=== PATIENT | male | born 1940 | race Caucasian/White ===

== ENCOUNTER 2017-05-26 07:18 | Day surgery (SDC) | payer MEDICARE, BC ==
[2017-05-25 11:19] VITALS: BMI 35.5
[~2017-05-26 07:18] MED LIST: FLU VACC TS2017-18 (>65YR) 0.5 ML SYRINGE IM ONE
--- NOTE | 2017-05-26 10:17 | SPC ---
LEFT UPPER EXTREMITY ARTERIAL VENOUS DIALYSIS FISTULOGRAM AND VENOGRAM TO THE SVC: Date: 05-26-17 History: Patient with long standing hypertension and endstage renal disease with an arterial venous d ialysis fistula placed in the left upper extremity approximately three months ago. However, the fistu la is non-maturing, and further evaluation was recommended. Fluoroscopy: Total fluoroscopy time is 1.5 [place] [address] mGy*cm^2. Technique: After informed consent was obtained, patient was placed on the angiography table in supine position. The left upper extremity was prepped and draped in the usual sterile fashion. An appropriate access s ite was determined with ultrasound guidance. The lateral aspect of the arm near the antecubital fossa was accessed, directed in the venous direction after the skin subcutaneous tissues were infiltrated with buffered 1% Lidocaine for local anesthesia. A venogram was obtained to the SVC demonstrating multiple collateral vessels. The access vein was tho ught to represent the cephalic vein. However, this vein terminated into multiple smaller veins. Fluor o was patent to the SVC. Manual compression was applied to this venous outflow and the contrast reflu xed into a basilic vein with wildly patent venous outflow via the basilic vein to the SVC. A blood pressure cuff was then applied to the upper arm and contrast was injected to reflux the arter ial venous anastomosis. The introducer sheath was removed and hemostatis was achieved with direct pressure. A dry sterile antonio ssing was placed. Patient was transported to radiology nurses holding area for further monitoring abudllahi or to discharge. FINDINGS: Patient has a left upper extremity arterial venous dialysis fistula. History indicated that the fistu la was via the posterior antecubital vein to the radial artery with primary outflow via the cephalic vein. However, with a small perforating branch to the basilic vein remaining. Today's arterial venous dialysis fistulogram demonstrates that the cephalic vein terminates into multiple collateral veins a nd primary outflow is via the basilic vein with moderately patent basilic vein as well as central vei ns to the SVC. Arterial venous anastomosis is also widely patent. IMPRESSION: Patent left upper extremity arterial venous dialysis fistula with patent arterial venous anastomosis. Outflow is primarily via the basilic vein which is widely patent. Additional outflow is via what is thought to be the cephalic vein, but this vein terminates in multiple smaller vessels at the level of the mid arm which are otherwise patent. POS: [facility]
[2017-05-26 12:22] VITALS: BP 97/68; TEMP 98.3
[2017-05-26] MEDS ORDERED: Iopamidol 300 61% 50 ML VIAL FS ONE (13:21)
[2017-05-26] MEDS ORDERED: Heparin 1,000 UNITS/ML VIAL ONE (16:03)
== END 2017-05-26 09:30 | disposition home or self-care (01) ==
LOC: SPEC 07:18
PROVIDERS: ATTEND Specialist
PROC: B50W1ZZ Plain Radiography of Dialysis Shunt/Fistula using Low Osmolar Contrast (ICD-10-PCS; principal; 2017-05-26)
DX: N18.6 End stage renal disease (principal); Z88.8 Allergy status to other drugs, medicaments and biological substances
CPT/HCPCS: 36901; 76942; J1644

== ENCOUNTER 2017-06-18 07:41 | Day surgery (SDC) | payer MEDICARE, BC ==
[2017-06-14 14:52] VITALS: BMI 31.6
--- NOTE | 2017-06-14 22:45 | HP ---
HISTORY OF PRESENT ILLNESS: Valdo Victor is a 77-year-old male patient, followed by fabián Lester on Wednesday, , and Wednesday at [facility] on [facility]. The patient recently underw ent a fistulogram on 05/26/2017. He had a fistula in the left forearm, proximal radial artery inflow , outflow primary cephalic vein, basilic vein. This did not seem to mature in his upper arm al gael the cephalic vein and fistulogram was obtained at [facility] on 05/26/2017 with noting a fistula, cephalic vein outflow to be occluded mid upper arm and primary outflow collaterals to the b asilic vein and basilic vein on occlusion of the cephalic vein, basilic vein filled and drained. Kate n is for basilic vein transposition fistula. The patient has some numbness of his thumb and index fi nger that is slowly improving. He is reluctant to have anything done, but his has talked him in to it. I have explained to him why he should not continue the dialysis catheter wherever and the ris k of a dialysis catheter infection, sepsis, bacteremia, endocarditis, etc. MEDICATIONS: None currently. PAST MEDICAL HISTORY: End-stage renal disease, on maintenance dialysis; hypertension; and anemia. PAST SURGICAL HISTORY: AV fistula placement. TOBACCO: Cessation. SOCIAL HISTORY: Patient is retired. ALLERGIES: None. REVIEW OF SYSTEMS: Noncontributory. PHYSICAL EXAMINATION: VITAL SIGNS: Weight 248 pounds, height 6 foot, 33 BMI, blood pressure 147/54, heart rate 76, tempera ture 98.4 degrees. HEENT: Unremarkable. LUNGS: Clear to auscultation. CARDIAC: Regular rate and rhythm without murmur or gallop. ABDOMEN: Soft, nontender, no masses. EXTREMITIES: Unremarkable. Left upper arm reveals a fistula, inflow proximal radial, outflow basili c vein, good thrill, and bruit. Dissipates over the upper arm, cephalic vein and primary outflow wit h the basilic vein. ASSESSMENT AND PLAN: Dysfunctional fistula left upper arm. We will plan basilic vein transposition fistula joining to the stump of the cephalic vein and distal third of the upper arm. He understands the risks and benefits and consents. Paresthesias in his hand improving.
[2017-06-18] MEDS ORDERED: Heparin 10,000 UNITS/ 10 ML VIAL ONE ×3 (08:54→14:36)
[2017-06-18] MEDS ORDERED: Dexamethasone 20 MG/5 ML VIAL ONE (08:54)
[2017-06-18] MEDS ORDERED: PROPOFOL 200 MG/20 ML VIAL ONE (08:54)
[2017-06-18] MEDS ORDERED: Ondansetron HCl/PF 4 MG/2 ML Vial ONE (08:54)
[2017-06-18] MEDS ORDERED: ePHEDrine/0.9% NaCl/PF SYRINGE 50 mg/10 ml ONE (08:54)
[2017-06-18] MEDS ORDERED: Lidocaine 1% PF 5 ML VIAL ONE (08:54)
[2017-06-18] MEDS ORDERED: CEFAZOLIN/Water 2 GM/20 ML SYRINGE ONE (09:16)
[2017-06-18 09:29] LABS: #Basophils 0.1 thou/uL (0.0-0.2); #Eosinphils 0.2 thou/uL (0.0-0.7); #Lymphocytes 2.9 thou/uL (1.20-3.40); #Monocytes 0.7 thou/uL (0.11-0.59); #Neutrophils 4.6 thou/uL (1.40-6.50); %Eosinophils 2.2 % (0.0-10.0); %Lymphocytes 34.4 % (21.0-51.0); %Neutrophils 54.4 % (42.0-75.0); Hemoglobin 14.2 g/dL (14.0-18.0); Mean Corpuscular HGB CONC 31.9 g/dL (32.0-36.0); Mean Corpuscular Hemoglobin 32.6 pg (27.0-31.0); Mean Platelet Volume 5.7 fL (7.4-10.4); Platelet Count 381 thou/uL (130-400); RBC Distribution Width 17.3 % (11.5-14.5); Red Blood Cell (RBC) Count 4.36 mill/uL (4.70-6.10); White Blood Cell (WBC) Count 8.5 thou/uL (4.8-10.8)
[2017-06-18 09:49] LABS: Anion Gap 17 mmol/L (10-20); BUN (Urea Nitrogen) 58 mg/dL (8.4-25.7); Calc. Creatinine Clearance 13 mL/min (70-130); Calcium 8.6 mg/dL (7.8-10.44); Carbon Dioxide 30 mmol/L (23-31); Chloride 95 mmol/L (98-107); Estimated GFR-MDRD 7; Glucose 113 mg/dL (83-110); Potassium 5.1 mmol/L (3.5-5.1); Sodium 137 mmol/L (136-145)
[2017-06-18] MEDS ORDERED: Fentanyl 250 MCG/5 ML VIAL ONE (11:24)
[2017-06-18] MEDS ORDERED: Heparin 5,000 UNITS/ML VIAL ONE (11:26)
[2017-06-18] MEDS ORDERED: Bupivacaine HCl 0.5%/Epinephrine 1:200,000/PF 30 ml Vial ONE (11:26)
[2017-06-18] MEDS ORDERED: Protamine Sulfate 50 MG/5 ML VIAL ONE (11:26)
[2017-06-18] MEDS ORDERED: Phenylephrine HCL 10 MG/ML VIAL ONE (12:25)
[2017-06-18] MEDS ORDERED: traMADol HCl 50 MG TAB ONE (14:45)
--- NOTE | 2017-06-18 18:16 | OP ---
DATE OF SERVICE: 06/18/2017 PREOPERATIVE DIAGNOSES: End-stage renal disease, nonmaturing left arm fistula, (cephalic vein stump occludes in the distal upper arm junction, mid distal third with primary outflow basilic vein). POSTOPERATIVE DIAGNOSES: End-stage renal disease, nonmaturing left arm fistula, (cephalic vein stump occludes in the distal upper arm junction, mid distal third with primary outflow basilic vein). PROCEDURE PERFORMED: Basilic vein transposition fistula, left arm. SURGEON: Dr. Javon Parker. ANESTHESIA: General LMA. Local 0.25% Marcaine with epinephrine, 60 mL, mixed with 1% Xylocaine with epinephrine, 20 mL, total volume used. PROCEDURE IN DETAIL: The patient was taken to the operating room where under general LMA anesthesia, left upper extremity was clipped of hair, prepared with ChloraPrep, draped in routine fashion. Inci dotty made from the proximal volar forearm overlying the arterial inflow up into the left axilla, diaz ied down through the skin and subcutaneous tissue and deep fascia, keeping the adjacent nerves free o f harm, basilic vein dissected free, dividing branch between 4-0 silk ties and clips, mobilizing it. A counter incision was made over the cephalic vein stump above the antecubital fossa and it was diss ected free and outflow branch points (the occlusion) divided between 4-0 silk ties and clips, mobiliz ed out of the tunnel into the antecubital fossa. The patient was given 6000 units heparin intravenou sly after Mar[place]-Chata tunneler 12 mm head used to create a tunnel between the antecubital fossa and ax illa over the anterior upper arm. The head was changed to a 6 and the basilic vein fistula takeoff f rom the arterial inflow, was clamped with vascular clamps, stump ligated with to and fro sutures of l ocking 4-0 Prolene. Vein had been marked to prevent torsion. It was flushed with heparin saline will ution and flushed well. It was then connected to the tunneler, brought through the tunnel, flushed a gain and flushed well. End basilic vein to end cephalic vein anastomosis and the counter incision an astomosis were created with continuous suture of 6-0 Prolene after spatulating both ends appropriatel y. After completion of the anastomosis, Surgicel was applied. The patient given 50 mg of protamine intravenously. Flovilla bed, medial left upper arm was inspected. Good hemostasis obtained with the cautery and clips. Surgicel was applied. Subcutaneous tissues approximated with 3-0 Monocryl, skin with deshawn and sterile dressings applied. The patient tolerated the procedure well.
== END 2017-06-18 15:00 | disposition home or self-care (01) ==
LOC: SDC 07:41
PROVIDERS: ATTEND Specialist
PROC: 05SC0ZZ Reposition Left Basilic Vein, Open Approach (ICD-10-PCS; principal; 2017-06-18)
DX: T82.898A Other specified complication of vascular prosthetic devices, implants and grafts, initial encounter (principal); N18.6 End stage renal disease; Z88.8 Allergy status to other drugs, medicaments and biological substances; Z99.2 Dependence on renal dialysis
CPT/HCPCS: 36415; 80048; 85025; J0670; J1100; J1644; J2001; J2370; J2405; J2704; J2720; J3010

== ENCOUNTER 2018-02-19 03:14 | Emergency (ER) | payer MEDICARE, BC ==
[2018-02-19] MEDS ORDERED: traMADol HCl 50 MG TAB ONE (04:08)
--- NOTE | 2018-02-19 12:05 | RAD ---
LEFT SHOULDER 3 VIEWS: HISTORY: Fell with shoulder pain. FINDINGS: There are some arthritic changes of the AC joint. The humeral head is high-riding. This suggests th e presence of an underlying rotator cuff injury which is probably chronic. No fracture or dislocatio n. IMPRESSION: Findings that would suggest a rotator cuff injury, probably chronic. POS: [facility]
== END 2018-02-19 04:19 | disposition home or self-care (01) ==
LOC: ERS 03:14
DX: M25.512 Pain in left shoulder (principal); Z79.899 Other long term (current) drug therapy; W01.0XXA Fall on same level from slipping, tripping and stumbling without subsequent striking against object, initial encounter; Y93.01 Activity, walking, marching and hiking

== ENCOUNTER 2018-04-17 16:56 | Inpatient (IN) | payer MEDICARE, BC ==
[~2018-04-17 16:56] MED LIST changes: -FLU VACC TS2017-18 (>65YR) 0.5 ML SYRINGE IM ONE; +Iopamidol 370 76% 100 ML VIAL ONE
[2018-04-17] MEDS ORDERED: Ondansetron PF 4 MG/2 ML Vial ONE (17:34)
[2018-04-17 17:36] LABS: #Lymphocytes 1.2 thou/uL (1.20-3.40); #Monocytes 0.3 thou/uL (0.11-0.59); #Neutrophils 5.5 thou/uL (1.40-6.50); %Basophils 0.2 % (0.0-1.0); %Eosinophils 0.2 % (0.0-10.0); %Lymphocytes 16.6 % (21.0-51.0); %Monocytes 3.7 % (0.0-10.0); %Neutrophils 79.3 % (42.0-75.0); Hemoglobin 13.2 g/dL (14.0-18.0); Mean Corpuscular HGB CONC 33.7 g/dL (32.0-36.0); Mean Corpuscular Hemoglobin 35.7 pg (27.0-31.0); Mean Platelet Volume 6.6 fL (7.4-10.4); Platelet Count 306 thou/uL (130-400); RBC Distribution Width 12.5 % (11.5-14.5)
[2018-04-17] MEDS ORDERED: Vancomycin HCl 1.5 GM in Sodium Chloride 0.9% 250 ML 300 ML IVPB ONE (17:45)
[2018-04-17] MEDS ORDERED: Cefepime 2 GM in Sodium Chloride 0.9% 100 ML IVPB ONE (17:45)
[2018-04-17 17:50] LABS: MDiff Complete? YES; Macrocytosis SLIGHT = 6-15 cells (100X) (0-5/hpf); Platelet Morphology Comment Appears Adequate; Polychromasia SLIGHT = 2-3 cells (100X) (0-2/hpf)
[2018-04-17 17:54] LABS: PTT 25.9 SEC (22.9-36.1); Prothrombin Time 13.4 SEC (12.0-14.7)
[2018-04-17 17:55] LABS: ALT (SGPT) 25 U/L (8-55); AST (SGOT) 30 U/L (5-34); Albumin 4.2 g/dL (3.4-4.8); Alcohol Less than 10 mg/dL (Less than 10); Alkaline Phosphatase 70 U/L (40-150); Anion Gap 24 mmol/L (10-20); BUN (Urea Nitrogen) 43 mg/dL (8.4-25.7); Bilirubin, Total 0.7 mg/dL (0.2-1.2); Calc. Creatinine Clearance 0 mL/min (70-130); Calcium 11.2 mg/dL (7.8-10.44); Carbon Dioxide 34 mmol/L (23-31); Chloride 87 mmol/L (98-107); Estimated GFR-MDRD 9; Globulin 3.4 g/dL (2.4-3.5); Glucose 143 mg/dL (83-110); Magnesium 4.5 mg/dL (1.6-2.6); Protein, Total 7.6 g/dL (5.8-8.1); Sodium 140 mmol/L (136-145)
--- NOTE | 2018-04-17 18:05 | RAD ---
ONE VIEW CHEST: History: Dyspnea. Comparison: 02-17-17 FINDINGS: Normal cardiac silhouette. Lung volumes are diminished with resultant accentuation of the pulmonary v essels and interstitium. Superimposed infiltrate cannot be excluded. No pneumothorax or osseous abnor mality. IMPRESSION: Diminished lung volumes with lung parenchymal changes as described above. Superimposed infiltrate can not be excluded. Further evaluation with a repeat two view chest radiograph with better inspiration i s recommended. POS: [facility]
[2018-04-17 18:28] LABS: CKMB 9.4 ng/mL (0-6.6)
[2018-04-17 18:45] LABS: Acetaminophen Less than 6.0 mcg/mL (10.0-30.0); Alcohol Less than 10 mg/dL (Less than 10); CK (CPK) 163 U/L (30-200); Lipase 18 U/L (8-78); Salicylate Less than 8.0 mg/dL (15.0-30.0)
[2018-04-17 18:50] LABS: Bilirubin Negative (Negative); Blood, Urine Large (Negative); Clarity CLOUDY (Clear); Glucose, Urine (Dipstick) 100 mg/dL (Negative); Leukocyte Small (Negative); Nitrite Negative (Negative); Protein, Urine (Dipstick) 100 mg/dL (Neg-Trace); Urobilinogen 0.2 mg/dL (0.2-1.0); pH, Urine 8.5 (5.0-9.0)
[2018-04-17 18:52] LABS: Bacteria/HPF None Seen HPF (None Seen); RBC/HPF GREATER THAN 50-TNTC HPF (0-3)
[2018-04-17 19:01] LABS: Amphetamine Not Detected (NotDetected); Barbiturates Screen Not Detected (NotDetected); Benzodiazepine Screen Not Detected (NotDetected); Cocaine Metabolite Screen Not Detected (NotDetected); Medtox Control Line Valid? VALID (VALID); Medtox Reader # READER 1; Methadone Not Detected (NotDetected); Methamphetamine Not Detected (NotDetected); Opiate Screen Not Detected (NotDetected); Oxycodone Screen Not Detected (NotDetected); Phencyclidine (PCP) Not Detected (NotDetected); THC/Cannabinoid Screen Not Detected (NotDetected); Tricyclic Screen Not Detected (NotDetected)
--- NOTE | 2018-04-17 19:09 | CT ---
NONCONTRAST HEAD CT: History: Altered mental status. Comparison: None. FINDINGS: No parenchymal hemorrhage. No extraaxial hematoma. No midline shift. Basilar cisterns are patent. Age appropriate atrophy. Cortical rivera white matter differentiation is preserved. Hypodensities in the left navarrete radiata and white matter adjacent to the frontal horn and left later al ventricles are presumed to be due to a combination of the chronic small vessel ischemic change or remote lacunar infarcts of the white matter. No evidence of hydrocephalus. Minimal mucosal disease of the right maxillary sinus. Calvarium is intact. IMPRESSION: Hypodensities involving the left cerebrum as described above. Findings are presumed to be chronic. Fu rther evaluation with brain MRI if clinically warranted. POS: [facility]
[2018-04-17 19:18] LABS: Hyaline Casts/LPF 0-3 HYALINE CAST LPF (0-3 Hyaline); Other Casts/LPF None Seen LPF (0-3 Hyaline)
[2018-04-17 19:19] LABS: Squamous Epithelial 0-3 HPF (0-3)
[2018-04-17] MEDS ORDERED: Midazolam HCl 2 mg/2 ml Vial ONE (19:29)
--- NOTE | 2018-04-17 20:13 | CT ---
ABDOMEN CT WITH CONTRAST PELVIC CT WITH CONTRAST: Comparison: 02-16-17 FINDINGS: ABDOMEN CT: There is significant ground glass opacification involving the lingula. Additional patchy ground glass interstitial opacities are noted in the visualized lower lobe and middle lobe. There is a more focal infiltrate in the lingula, incompletely evaluated, measuring 1.6 cm. Heart size is normal. No pericardial effusion. The descending thoracic aorta and abdominal aorta do n ot have any aneurysmal dilatation. Gallbladder is unremarkable. Mild dilatation of the intrahepatic b iliary system. 5 mm hypodensity in the right hepatic lobe, too small to characterize. 5.2 x 4.1 cm hy podensity in the liver with an attenuation coefficient of -8 Hounsfield units, compatible with a cyst . Spleen, pancreas, and adrenal glands are unremarkable. No gastrohepatic, retrocrural or periportal lymphadenopathy. Bilateral atrophic kidneys with indeterminate hypodense lesions. Bilaterally, no obstructive uropathy . No mesenteric mass, lymphadenopathy, free air or free fluid. Limited evaluation of the alimentary canal by the lack of oral contrast. Multiple distended fluid alexei led loops proximal mid small bowel. The distal small bowel loops and terminal ileum appear to be deco mpressed. Normal caliber appendix. Fecal material in a nondistended, nondilated colon. Diverticulosis , without definite diverticulitis. Mucosal prominence and wall thickening of the sigmoid colon and re ctum is presumed to be due to under distension. PELVIC CT: No mass, lymphadenopathy, free air, or free fluid. IMPRESSION: 1. Early/partial small bowel obstruction. 2. Diverticulosis, without evidence of diverticulitis. 3. Mucosal thickening involving the distal sigmoid colon and rectum. Findings may be due to distentio n. Colonoscopy is recommended. POS: [facility]
[2018-04-17] MEDS ORDERED: Norepinephrine 8 MG/0.9% NS 250 ML ONE (20:18)
--- NOTE | 2018-04-17 20:52 | CON ---
DATE OF CONSULTATION: TYPE OF CONSULTATION: Nephrology. REASON FOR CONSULTATION: Maintenance hemodialysis. HISTORY OF PRESENT ILLNESS: This is a very pleasant 77-year-old gentleman, presented to the hospital with a 1-day history of abdominal pain with nausea and vomiting. The patient dialyzes per schedule Wednesday, Wednesday, and Wednesday. The patient denies no headache, numbness, tingling, or weakness. Denies any nausea, vomiting, or chest pain. PAST MEDICAL HISTORY: Significant for end-stage renal disease, hypertension, hyperlipidemia, history of tunneled dialysis catheter, AV fistula surgery, for ESRD. ALLERGIES: REVIEWED. REVIEW OF SYSTEMS: A 15-point review of systems was performed, negative except what is noted above. GENERAL: HEAD: NECK: No swelling or lumps. NOSE: No epistaxis or discharge. EYES: No diplopia or pain. RESPIRATORY: CARDIOVASCULAR: GASTROINTESTINAL: /MASS SPECTROMETRY MANAGER: MUSCULOSKELETAL: No joint pain. NEUROPSYCHIATIC SYSTEMS: No suicidal ideation. No ideation. SKIN: Denies any rash or ulcer. CONSTITUTIONAL: No fever or chills. PHYSICAL EXAMINATION: GENERAL: The patient is awake and alert. VITAL SIGNS: Reviewed. GENERAL APPEARANCE AND MENTAL STATUS: Fair. HEAD/NECK: Normocephalic. Atraumatic. EYES: EOMI. No deformity. EARS: Clear. No ulcers. NOSE: Intact. No lesions. MOUTH: Clear. No discharge. THROAT: Clear. No exudate. LUNGS: Clear. No crackles. CARDIAC: S1, S2. No rub. ABDOMEN: Benign. Bowel sounds positive. GENITALIA/RECTUM: Brambila absent. BACK/EXTREMITIES: Edema 0+. NEUROLOGICAL: Alert and motor intact. SKIN: LYMPHATICS: LABORATORY DATA: Labs show hemoglobin 13.2. Bicarb 34, creatinine 5, 1. stage 6 chronic kidney disease, plan dialysis tomorrow. 2. Elevated lactic acid, management per primary team. 3. Hypercalcemia, hold off on vitamin D. 4. Anemia, stable. 5. Medications based on GFR. 6. Abdominal pain, management per primary team. Job ID: [id number] MTDD
[2018-04-17 21:18] LABS: Troponin I 0.091 ng/mL (< 0.028)
[2018-04-17 21:26] LABS: Lactic Acid 1.1 mmol/L (0.5-2.2)
--- NOTE | 2018-04-17 21:54 | RAD ---
LIMITED ONE VIEW ABDOMEN: History: Evaluate NG tube placement. FINDINGS: Limited view of the lower thorax and upper abdomen demonstrates an NG tube which appears to be in the left upper quadrant, likely in the stomach. IMPRESSION: As above. POS: [facility]
[2018-04-17] MEDS ORDERED: Ondansetron ODT 4 MG TAB PO PRN (22:23)
[2018-04-17] MEDS ORDERED: Acetaminophen 650 MG Suppository PR PRN (22:23)
[2018-04-17] MEDS ORDERED: CCU Electrolyte Replacement 1 EACH FS SCH (22:23)
[2018-04-17] MEDS ORDERED: Ondansetron PF 4 MG/2 ML Vial IVP PRN (22:23)
[2018-04-17] MEDS ORDERED: Zolpidem Tartrate 5 MG TAB PO PRN (22:23)
[2018-04-17] MEDS ORDERED: Magnesium Oxide 400 MG TAB PO PRN ×2 (22:39)
[2018-04-17] MEDS ORDERED: Magnesium 2 GM/NS 0.9% 100 ML 2 GM in Premix Bag 1 BAG IVPB PRN (22:39)
[2018-04-17] MEDS ORDERED: Potassium Chloride 40 MEQ in Sodium Chloride 0.9% 250 ML 250 ML IVPB PRN (22:39)
[2018-04-17] MEDS ORDERED: Potassium Phosphate 12 MMOL in Sodium Chloride 0.9% 250 ML 250 ML IV PRN (22:39)
[2018-04-17] MEDS ORDERED: Potassium Phosphate 9 MMOL in Sodium Chloride 0.9% 100 ML IVPB PRN (22:39)
[2018-04-17] MEDS ORDERED: Potassium Chloride 20 MEQ TAB PO PRN (22:39)
[2018-04-17] MEDS ORDERED: CCU ELECTROLYTE REPLACEMENT PROTOCOL FS PRN (22:39)
[2018-04-17] MEDS ORDERED: Potassium Phosphate 15 MMOL in Sodium Chloride 0.9% 250 ML 250 ML IV PRN (22:39)
[2018-04-17] MEDS ORDERED: Potassium Chloride 40 MEQ in Premix Bag 1 BAG IVPB PRN (22:39)
[2018-04-17] MEDS ORDERED: Lorazepam 2 MG/ML VIAL ONE (22:43)
[2018-04-17 23:56] LABS: Troponin I 0.135 ng/mL (< 0.028)
[2018-04-18] MEDS ORDERED: Lorazepam 2 MG/ML VIAL ONE (00:47)
[2018-04-18] MEDS ORDERED: Haloperidol Lactate 5 MG/ML VIAL SLOW IVP SCH (01:00)
[2018-04-18] MEDS ORDERED: Norepinephrine 8 MG/250 ML BAG IVPB PRN (01:42)
[2018-04-18 04:56] LABS: #Lymphocytes 1.2 thou/uL (1.20-3.40); #Monocytes 0.9 thou/uL (0.11-0.59); #Neutrophils 6.6 thou/uL (1.40-6.50); %Basophils 0.3 % (0.0-1.0); %Eosinophils 0.2 % (0.0-10.0); %Lymphocytes 13.4 % (21.0-51.0); %Monocytes 10.3 % (0.0-10.0); %Neutrophils 75.8 % (42.0-75.0); Hemoglobin 10.2 g/dL (14.0-18.0); Mean Corpuscular HGB CONC 33.4 g/dL (32.0-36.0); Mean Corpuscular Hemoglobin 35.6 pg (27.0-31.0); Mean Platelet Volume 6.8 fL (7.4-10.4); Platelet Count 250 thou/uL (130-400); RBC Distribution Width 12.5 % (11.5-14.5); Red Blood Cell (RBC) Count 2.86 mill/uL (4.70-6.10); White Blood Cell (WBC) Count 8.7 thou/uL (4.8-10.8)
[2018-04-18] MEDS: Lorazepam 2 MG/ML VIAL SLOW IVP PRN ×2 (05:14→08:55)
[2018-04-18 05:32] LABS: Anion Gap 16 mmol/L (10-20); BUN (Urea Nitrogen) 54 mg/dL (8.4-25.7); Calc. Creatinine Clearance 14 mL/min (70-130); Calcium 9.1 mg/dL (7.8-10.44); Carbon Dioxide 36 mmol/L (23-31); Chloride 92 mmol/L (98-107); Estimated GFR-MDRD 9; Glucose 113 mg/dL (83-110); Sodium 139 mmol/L (136-145)
--- NOTE | 2018-04-18 06:39 | HP ---
CHIEF COMPLAINT: Alteration of awareness. HISTORY OF PRESENT ILLNESS: This is a 77-year-old male with past medical history of end-stage renal failure, on hemodialysis on Mondays, Wednesdays, and Fridays, presenting with a chief complaint of alteration of awareness. The patient was brought in by the spouse. Per the spouse, the patient is increasingly being altered in the past 24 hours on the day of admission. The patient was complaining of lower abdominal pain and back pain prior to his worsening of his mentation. The patient also endorses some shortness of breath during that time, and the patient was recently seen in the hospital and diagnosed with zoster and the patient was started on Valtrex 2 days prior to the day of admission. The patient is on dialysis; Mondays, Wednesdays, and Fridays. The patient recently was dialyzed the day prior to this admission. At this point, the patient is confused and agitated. REVIEW OF SYSTEMS: Unable to be obtained since the patient is altered and confused at this time. PAST MEDICAL HISTORY: End-stage renal disease, on hemodialysis. FAMILY HISTORY: Reviewed and noncontributory to this visit. PAST SURGICAL HISTORY: The patient had back surgery in 1981. The patient had laser surgery to bilateral eyes and there is a fistula at the left arm. PSYCHIATRIC HISTORY: No previous psych history. SOCIAL HISTORY: The patient drinks socially once a month. Denies any illicit drugs and denies any smoking history. This history was obtained from previous medical records. ALLERGIES: THE PATIENT IS ALLERGIC TO BENADRYL AND PENICILLINS. CURRENT MEDICATIONS: Unable to be obtained since the patient is altered. PHYSICAL EXAMINATION: VITAL SIGNS: Blood pressure is 89/60, pulse of 130, respiratory rate of 26, temperature of 100.3, and oxygen saturation of 99% on room air. GENERAL: The patient is lying in bed, confused, agitated. The patient is moving his extremities uncontrollably and very anxious. HEENT: Normocephalic, atraumatic. Pupils are equally round and reactive to light. Extraocular movements are intact. No scleral icterus. No conjunctival pallor. Mucous membranes are dry. NECK: Trachea is midline. Full range of motion. Supple, nontender. LUNGS: The patient has bilateral wheezes at the anterior lung mata bilaterally, and there are some crackles at the lower lobes bilaterally. CARDIAC: Positive S1 and S2. The patient is tachycardic, irregularly irregular. ABDOMEN: Obese, soft, nontender. EXTREMITIES: The patient has 5/5 upper extremity strength. Good pulses bilaterally. There is AV fistula at the left biceps with a palpable thrill. Lower extremities; the patient has 5/5 lower extremity strength. No edema noted. Good pulses bilaterally at the lower extremities. NEUROLOGIC: Cranial nerves 2 through 12 grossly intact. No neurologic deficits noted. PSYCH: The patient is confused, alert, oriented to only self. The patient's GCS is 13. SKIN: Warm, dry, and intact. The patient do have zoster at the right chest. DIAGNOSTIC DATA: EKG that was done shows atrial fibrillation with rapid ventricular response, rate of 128. LABORATORY DATA: WBC is 7.0, hemoglobin is 13.2, hematocrit is 39.2, and platelet count is . PT is 13.0, INR 1.0, and PTT 25.9. Sodium is 140, potassium is 5.0, chloride is 87, carbon dioxide of 34, anion gap of 24, BUN is 43, creatinine is 6.17, GFR of 9, glucose is 143, lactic acid of 3.9, magnesium of 4.5, and troponin of 0.046. Urinalysis; the patient has small leukocyte esterase, negative for nitrites. Urine tox is negative. IMAGING DATA: Chest x-ray that was done in the ED showed limited view of the lower thorax and upper abdomen, demonstrates an NG tube which appears to be in the left upper quadrant, likely in the stomach. CT of the abdomen and pelvis shows early partial small-bowel obstruction, diverticulosis without evidence of diverticulitis, mucosal thickening involving the distal sigmoid colon and rectum. Finding may be due to distention. ASSESSMENT AND PLAN: This is a 77-year-old male being admitted for; 1. Septic shock likely due to underlying colitis. At this point, the patient has been started on antibiotics. We are going to continue the patient on antibiotics. We have put in a central line in place, and we will start the patient on Levophed. We are going to admit the patient to the ICU. We are going to continue the patient on current management. We are going to continue the patient on IV fluids. We will give the patient p.r.n. pain medications and p.r.n. medications for fevers. We will follow up on cultures, and we will follow up on morning labs. 2. Partial ileus. At this point, NG tube has been placed. Surgery has been consulted. We will continue the patient on current management. We will continue to give the patient gentle hydration. We will monitor the patient closely. 3. Mucosal thickening of the distal sigmoid and rectum, likely due to colitis. At this point, we have consulted GI. We will follow up with GI regarding any further recommendation. We will continue the patient on antibiotics. The patient has been made n.p.o. 4. End-stage renal disease, on hemodialysis. At this point, we have consulted nut sifter. We will continue with the patient's regimen of dialysis. The patient's next dialysis is today. We will prepare the patient for dialysis if the patient can be able to tolerate it. 5. Acute respiratory failure. The patient was given oxygenation in the ED. Currently, the patient is not on any nasal cannula. We will monitor the patient 's O2 sats. 6. Obesity. We will continue to advise the patient to lose weight. 7. Atrial fibrillation. We will continue the patient on his home medications. 8. Deep venous thrombosis/gastrointestinal prophylaxis. critical care time > 70 mins Job ID: [id number] MTDD
[2018-04-18] MEDS: Famotidine/PF 20 mg/2ml Vial SLOW IVP SCH (08:22)
[2018-04-18] MEDS: Heparin 5,000 UNITS/ML VIAL SC SCH ×2 (08:24→20:54)
[2018-04-18] MEDS ORDERED: Cepastat Lozenges 1 LOZ PO PRN (08:53)
[2018-04-18] MEDS ORDERED: Sodium Chloride 0.65% Nasal 44 ML BOT EA NARE PRN (08:53)
[2018-04-18] MEDS ORDERED: Acetaminophen 500 MG TAB PO PRN (08:53)
[2018-04-18] MEDS ORDERED: Diabetic Tussin 200 MG/10 ML UDCUP PO PRN (08:53)
[2018-04-18] MEDS ORDERED: Artificial Tears 18 DROP/0.9 ML EA EYE PRN (08:53)
[2018-04-18] MEDS ORDERED: hydrALAZINE 20 MG/ML VIAL SLOW IVP PRN (08:53)
[2018-04-18] MEDS ORDERED: Eucerin (Mineral Oil/Petrolatum,White) 30 gm Jar TOP PRN (08:53)
[2018-04-18] MEDS ORDERED: Vancomycin HCl 1.25 GM in Sodium Chloride 0.9% 250 ML 250 ML IVPB SCH (09:00)
[2018-04-18] MEDS ORDERED: HOLD VANCOMYCIN FOR LEVEL >20 FS SCH (09:00)
[2018-04-18] MEDS ORDERED: Vancomycin HCl 1.5 GM in Sodium Chloride 0.9% 250 ML 300 ML IVPB SCH (09:00)
[2018-04-18] MEDS ORDERED: Famotidine 20 MG TAB PO SCH (09:00)
[2018-04-18] MEDS ORDERED: Vancomycin HCl 1 GM in Premix Bag 1 BAG IVPB SCH (09:00)
[2018-04-18] MEDS ORDERED: Vancomycin HCl 750 MG in Sodium Chloride 0.9% 250 ML 250 ML IVPB SCH (09:00)
[2018-04-18 09:30] LABS: Vancomycin, Trough 17.3 ug/mL
[2018-04-18] MEDS: Saccharomyces boulardii 250 MG CAP PO SCH (09:35)
--- NOTE | 2018-04-18 10:19 | PRG ---
DATE OF SERVICE: 04/18/2018 SUBJECTIVE: A 77-year-old gentleman, being seen for end-stage renal disease. The patient is nonverbal. OBJECTIVE: GENERAL: The patient is resting. VITAL SIGNS: Afebrile, pulse 77, breathing 16, blood pressure 123/54. GENERAL APPEARANCE AND MENTAL STATUS: Fair. HEAD/NECK: Normocephalic. Atraumatic. EYES: EOMI. No deformity. EARS: Clear. No ulcers. NOSE: Intact. No lesions. MOUTH: Clear. No discharge. THROAT: Clear. No exudate. LUNGS: Clear. No crackles. CARDIAC: S1, S2. No rub. ABDOMEN: Benign. Bowel sounds positive. GENITALIA/RECTUM: Brambila absent. BACK/EXTREMITIES: Edema 0+. NEUROLOGICAL: Alert and motor intact. SKIN: LYMPHATICS: LABORATORY DATA: Labs show hemoglobin 10.2. Potassium is 5. ASSESSMENT AND PLAN: 1. Stage 6 chronic kidney disease. Plan dialysis. 2. Hypertension, stable. 3. Anemia, stable. 4. Medications based on GFR, appropriate. Job ID: [id number]
--- NOTE | 2018-04-18 10:53 | CON ---
DATE OF CONSULTATION: 04/18/2018 TYPE OF CONSULTATION: Surgical. REASON FOR CONSULTATION: Possible bowel obstruction. HISTORY OF PRESENT ILLNESS: The patient is a 77-year-old white male. He is a dialysis patient and has undergone access surgery per Dr. Parker, most recently in June. He apparently dialyzes using his left upper arm access. The patient was brought into the emergency room yesterday by his because of altered mental status. He was apparently complaining of some degree of abdominal pain prior to his inability to communicate appropriately. The patient was seen in the emergency room, where he underwent evaluation with radiologic and laboratory studies. CT scan of his abdomen and pelvis revealed some diffuse small bowel dilatation. This is felt to potentially be earlier partial small bowel obstruction. On my examination, I cannot see a definite transition zone. Laboratory studies yesterday revealed a normal white blood cell count of 7.0 with a hemoglobin of 13, but a left shift with 80% neutrophils. Today, his white blood cell count is 8.7. His chemistries when he arrived yesterday revealed a potassium that is elevated at 5.0 and chloride that is low at 87. His CO2 is high at 34. His magnesium is high at 4.5, and it does not look like his phosphorus level was checked. He also had an elevated CK-MB and troponin level. A nasogastric tube was placed and he was admitted to the ICU. He is currently being sedated secondary to his fairly wild agitation. He is entirely noncommunicative with me. He has a BiPAP mask on his face. Nasogastric tube is in place and functioning well with a little output and what there is, is nonbilious. PAST MEDICAL HISTORY: Significant for end-stage renal disease and hypertension. PAST SURGICAL HISTORY: AV fistula placement and prior dialysis catheter placement. I can see no evidence of prior abdominal surgery. He also apparently had back surgery in the past. MEDICATIONS: Prior to this admission are unknown. There are no family at bedside. Back in June, he was taking no medications apparently. PERSONAL AND SOCIAL HISTORY: He apparently does not smoke. Drinks alcohol socially. ALLERGIES: APPARENTLY TO BENADRYL. PHYSICAL EXAMINATION: VITAL SIGNS: He is afebrile with temperature 98.4, pulse is 77, and blood pressure 123/54. GENERAL: He is somewhat sedated and then noncommunicative in the intensive care unit with a BiPAP mask in place. He begins thrashing and struggling against his restraints whenever he is manipulated. HEAD, EYES, EARS, NOSE, AND THROAT: Unremarkable. NECK: Supple. LUNGS: Clear to auscultation anteriorly. CARDIAC: Appears to be regular rate and rhythm. ABDOMEN: Soft, not particularly distended. There are no bowel sounds appreciable to my examination. EXTREMITIES: Unremarkable. LABORATORY DATA: Labs are as referenced above. ASSESSMENT AND PLAN: The patient, who complained of some abdominal pain and there is evidence of small bowel dilatation on CT scan. I suspect this is an ileus related to underlying medical issues. Bowel obstruction would be unusual in the absence of prior surgery. For now, I would certainly continue with nasogastric tube. At the point that his medical issues seem to be improving with an assess for bowel patency with a Gastrografin small bowel followthrough. I would typically order this for tomorrow, but I am not certain that he will medically be ready for this procedure. Continue medical management for now. Job ID: [id number]
--- NOTE | 2018-04-18 12:01 | PDOC.PN ---
- Subjective Encounter Start Date: 04/18/18 Encounter Start Time: 09:45 -: old records requested/rev Patient seen and examined. No new complaints. No overnight events - Objective Resuscitation Status - Order Detail: 04/17/18 22:23 Resuscitation Status Routine Resuscitation Status: FULL: Full Resuscitation MAR Reviewed: Yes Vital Signs & Weight: Vital Signs (12 hours) Temp Pulse Pulse Ox 04/18/18 11:36 79 04/18/18 07:55 100 04/18/18 07:00 98.4 F 04/18/18 04:00 98.5 F 04/18/18 01:00 98.7 F 04/18/18 00:46 90 100 04/18/18 00:40 100 Weight Weight 207 lb 3.752 oz Most Recent Monitor Data Heart Rate from ECG 81 NIBP 118/89 NIBP BP-Mean 98 Respiration from ECG 19 SpO2 97 I&O: 04/17/18 04/18/18 04/19/18 06:59 06:59 06:59 Intake Total 43 0 Output Total 15 125 Balance 28 -125 Result Diagrams: 04/18/18 04:53 04/18/18 03:30 Radiology Reviewed by me: Yes (all radiological investigation reviewed) EKG Reviewed by me: Yes (nsr) Phys Exam - Physical Examination Constitutional: NAD on bipap HEENT: PERRLA, moist MMs, sclera anicteric Neck: no JVD, supple Respiratory: no wheezing, no rales, no rhonchi reduced air entry at base Cardiovascular: RRR, no significant murmur, no rub Gastrointestinal: soft, no distention, positive bowel sounds Musculoskeletal: pulses present, edema present unable to assess Lymphatic: no nodes Deviation from normal: unable to assess Skin: normal turgor Dx/Plan (1) Acute respiratory failure with hypoxia Code(s): J96.01 - ACUTE RESPIRATORY FAILURE WITH HYPOXIA Status: Acute (2) Acute metabolic encephalopathy Code(s): G93.41 - METABOLIC ENCEPHALOPATHY Status: Acute (3) Demand ischemia Code(s): I24.8 - OTHER FORMS OF ACUTE ISCHEMIC HEART DISEASE Status: Acute (4) Lactic acidosis Code(s): E87.2 - ACIDOSIS Status: Acute (5) Partial small bowel obstruction Status: Acute (6) ESRD on hemodialysis Code(s): N18.6 - END STAGE RENAL DISEASE; Z99.2 - DEPENDENCE ON RENAL DIALYSIS Status: Chronic (7) Macrocytic anemia Code(s): D53.9 - NUTRITIONAL ANEMIA, UNSPECIFIED Status: Chronic - Plan cont current plan of care, continue antibiotics * continue bipap as tolerated * pulmonary on case * general surgery evaluated and per them no surgical treatment needed * HD as per nephrology * follow culture * medication reviewed as below * symptomatic treatment. Review of Systems - Review of Systems Other: unable to review due to encephalopathy - Medications/Allergies Allergies/Adverse Reactions: Allergies Allergy/AdvReac Type Severity Reaction Status Date / Time diphenhydramine AdvReac Verified 04/18/18 00:57 [From Benadryl] Medications: Current Medications Acetaminophen (Tylenol) 650 mg PO Q4H PRN PRN Reason: Headache/Fever/Mild Pain (1-3) Acetaminophen (Tylenol) 650 mg DC Q4H PRN PRN Reason: Headache/Fever/Mild Pain (1-3) Albuterol/Ipratropium (Duoneb) 3 ml NEB [id number] PRN PRN Reason: SOB &/or Wheezing Artificial Tears (Tears Naturale) 2 drop EA EYE PRN PRN PRN Reason: Dry Eyes Famotidine (Pepcid) 20 mg SLOW IVP QAM [facility] Last Admin: 04/18/18 08:22 Dose: 20 mg Guaifenesin (Robitussin Sf) 200 mg PO Q4H PRN PRN Reason: Cough Haloperidol Lactate (Haldol) 5 mg IM Q4H PRN PRN Reason: Agitation Heparin Sodium (Porcine) (Heparin) 5,000 units SC BID [facility] Last Admin: 04/18/18 08:24 Dose: 5,000 units Hydralazine HCl (Apresoline) 10 mg SLOW IVP Q4H PRN PRN Reason: SBP > 180 and HR < 70 Vancomycin HCl 1.5 gm/ Sodium (Chloride) 300 mls @ 200 mls/hr IVPB [facility] Vancomycin HCl 1.25 gm/ Sodium (Chloride) 250 mls @ 166.667 mls/hr IVPB [facility]CALL [facility] Vancomycin HCl 1 gm/ Device 200 mls @ 200 mls/hr IVPB [facility]CALL [facility] Vancomycin HCl 750 mg/ Sodium (Chloride) 250 mls @ 250 mls/hr IVPB [facility]CALL [facility] Norepinephrine Bitartrate (Levophed) 250 mls @ 0 mls/hr IVPB INF PRN; Protocol PRN Reason: Blood Pressure Cefepime HCl 1 gm/ Sodium (Chloride) 100 mls @ 200 mls/hr IVPB Q24HR@1500 [facility] Influenza Virus Vacc Triv Types A&B (Fluzone High-Dose Syr) 0.5 ml IM .ONCE ONE Stop: 04/20/18 09:01 Mineral Oil/White Petrolatum (Eucerin Cream) 0 gm TOP BIDPRN PRN PRN Reason: Dry Skin Miscellaneous Medication (Pharmacy To Dose) 1 each IVPB PRN PRN PRN Reason: Pharmacy to dose Hold Vancomycin For (Level >20) 0 each FS .AT DIALYSIS [facility] Ondansetron HCl (Zofran) 4 mg IVP Q6H PRN PRN Reason: Nausea/Vomiting Pneumococcal 13-Valent Conj Vacc (Prevnar) 0.5 ml IM .ONCE ONE Stop: 04/20/18 09:01 Saccharomyces Boulardii (Florastor) 250 mg PO DAILY [facility] Last Admin: 04/18/18 09:35 Dose: Not Given Sodium Chloride (Flush - Normal Saline) 10 ml IVF Q12HR PRN PRN Reason: Saline Flush Sodium Chloride (Flush - Normal Saline) 10 ml IVF PRN PRN PRN Reason: Saline Flush Sodium Chloride ([place] Nasal [place] 0.65%) 0 ml EA NARE QIDPRN PRN PRN Reason: Nasal Congestion Throat Lozenges (Cepastat Lozenges) 1 diana PO Q2H PRN PRN Reason: Sore Throat
--- NOTE | 2018-04-18 12:07 | CON ---
DATE OF CONSULTATION: 04/18/2018 TIME SPENT: A 35 minutes of critical care time. REASON FOR CONSULTATION: Critical care management. HISTORY OF PRESENT ILLNESS: Mr. Victor is a 77-year-old male, who came to the hospital last night with altered mental status. This has been going on for about 24 hours prior to admission. He has recently been started on Valtrex for shingles on the right arm area. He is a chronic hemodialysis patient and has been compliant with dialysis as far as we know. He has required benzodiazepines, Haldol, and BiPAP overnight. He is currently undergoing dialysis. He has been loaded with antibiotics. PAST MEDICAL HISTORY: 1. End-stage renal disease, requiring hemodialysis. 2. Hypertension. 3. Hyperlipidemia. 4. Tunneled dialysis catheter placement. 5. AV fistula placement. ALLERGIES: DIPHENHYDRAMINE. MEDICATIONS: Preadmission; 1. Vitamin C 500 mg daily. 2. Multivitamin 1 daily. 3. He was also on Valtrex. SOCIAL HISTORY: Drinks socially once a month. Nonsmoker. REVIEW OF SYSTEMS: Unobtainable secondary to the patient's encephalopathy. PHYSICAL EXAMINATION: VITAL SIGNS: Temperature 98.4, pulse 77, blood pressure 123/54, and O2 saturation 100%. GENERAL: The patient is currently resting on BiPAP. He is fairly sedate, unless he is stimulated and he moves around. HEENT: Pupils are reactive. Sclerae icteric. Oropharynx clear. NECK: No JVD. LUNGS: Clear. CARDIAC: S1 and S2. Regular. ABDOMEN: Somewhat distended with hypoactive bowel sounds. EXTREMITIES: No clubbing, cyanosis, or edema. He has a rash on his right arm. LABORATORY DATA: Tox screen was negative. White blood cell count 8.7, hematocrit 30.5, and platelet count 250. INR 1.0. Sodium 139, potassium 5, chloride 92, CO2 of 36, BUN 54, creatinine 6.1, and glucose 113. Troponin 0.135. His initial lactic acid was 3.9, is now down to 1.1. ASSESSMENT: 1. Sepsis thought secondary to diverticulitis versus bowel obstruction. 2. Chronic renal failure. 3. Acute respiratory failure. PLAN: 1. Continue BiPAP. 2. Continue antibiotics and continue dialysis. 3. I would hold the Ativan and use Haldol as needed for psychotic symptoms. We will follow with you. Job ID: [id number]
[2018-04-18] MEDS: Haloperidol Lactate 5 MG/ML VIAL IM PRN (13:57)
[2018-04-18 15:04] LABS: HBSAg Index 0.22 S/CO (0-0.99); Hep B Surf Ag Non-Reactive S/CO (NonReactive)
[2018-04-18] MEDS: Cefepime 1 GM in Sodium Chloride 0.9% 100 ML IVPB SCH (15:31)
[2018-04-18] MEDS ORDERED: Cefepime 0.5 GM in Sodium Chloride 0.9% 100 ML IVPB SCH (20:00)
--- NOTE | 2018-04-19 01:34 | CON ---
DATE OF CONSULTATION: 04/18/2018 TYPE OF CONSULTATION: Gastroenterology. CHIEF COMPLAINT: Altered mental status. HISTORY OF PRESENT ILLNESS: Mr. Victor is a 77-year-old man who is admitted to the intensive care unit with altered mental status. He is noted to have elevated lactate and was started on antibiotics for suspected sepsis syndrome. He was noted to be hypoxemic and required BiPAP for a period of time, but that has since been discontinued. As his mental status was becoming altered, his family reported to the admitting physician that he had nausea and vomiting and some abdominal pain. The patient is now confused and unable to contribute to history. He had a CT scan of the abdomen and pelvis last night, which showed distended fluid loops of proximal mid small bowel with relative decompression of the more distal small bowel. There is some wall thickening of the sigmoid and rectum reported by CT. The patient has had no known diarrhea or blood in the stool. PAST MEDICAL HISTORY: 1. End-stage renal disease, on hemodialysis. 2. He was diagnosed with herpes zoster and started on valacyclovir a couple of days prior to admission. PAST SURGICAL HISTORY: 1. Back surgery. 2. Eye surgery. 3. AV fistula in the left arm. SOCIAL HISTORY: The patient reportedly drinks once a month. No drugs. No smoking. This could not be verified with the patient. ALLERGIES: 1. PENICILLIN. 2. BENADRYL. MEDICATIONS: Outpatient medications are not currently known. Current inpatient medications include; 1. Cefepime. 2. Famotidine. 3. Haloperidol. 4. Magnesium. 5. Vancomycin. REVIEW OF SYSTEMS: Unobtainable due to his altered mental status. PHYSICAL EXAMINATION: VITAL SIGNS: Temperature is 98.3, blood pressure 134/60, and pulse 84. GENERAL: He is in no acute distress. He is confused and mostly talks nonsense, but he could tell me his first name, not his last name. He states that he is not having abdominal pain and also when I was palpating his abdomen, when asked if he was having pain, he said, "no." HEENT: His eyes have no scleral icterus. Oropharynx is clear without lesions. NECK: No cervical or supraclavicular lymphadenopathy. He has an NG tube in place. Nasal cannula in place. LUNGS: Clear to auscultation bilaterally. HEART: Regular rate and rhythm without murmur. ABDOMEN: Soft, nontender, and nondistended. Bowel sounds are hypoactive. There is no focal guarding. EXTREMITIES: No lower extremity edema. RECTAL: Exam reveals light brown soft stool in the rectal vault. LABORATORY DATA: White blood cell count 8.7, hemoglobin 10.2, and platelets 250. He was hemoconcentrated on admission with the hemoglobin of 13.2. INR 1.0. Creatinine 6.14. Plasma alcohol was negative. IMPRESSION: 1. Altered mental status. 2. Lactic acidosis and sepsis syndrome, on antibiotics. 3. Ileus with dilated proximal small bowel by CT when he was admitted. He has an NG tube in place now. There is no apparent bowel obstruction at this point. There was some questionable thickening of the sigmoid and rectum on presentation; however, he has had no blood in the stool, no diarrhea. He has soft light brown stool in the rectal vault by digital exam now. Nothing to indicate any significant colitis. He should eventually likely undergo lower endoscopy after resolution of his acute illness that could potentially be done in the future as an outpatient. RECOMMENDATIONS: 1. NG tube is in place. 2. No further acute intervention recommended from a GI standpoint. I will continue to follow. Job ID: [id number]
[2018-04-19 06:20] LABS: #Eosinphils 0.1 thou/uL (0.0-0.7); #Lymphocytes 1.6 thou/uL (1.20-3.40); #Monocytes 0.9 thou/uL (0.11-0.59); #Neutrophils 7.6 thou/uL (1.40-6.50); %Basophils 0.2 % (0.0-1.0); %Eosinophils 0.5 % (0.0-10.0); %Lymphocytes 15.4 % (21.0-51.0); %Monocytes 8.7 % (0.0-10.0); %Neutrophils 75.2 % (42.0-75.0); Hemoglobin 9.4 g/dL (14.0-18.0); Mean Corpuscular Hemoglobin 35.7 pg (27.0-31.0); Mean Platelet Volume 6.6 fL (7.4-10.4); Platelet Count 246 thou/uL (130-400); RBC Distribution Width 12.5 % (11.5-14.5); Red Blood Cell (RBC) Count 2.64 mill/uL (4.70-6.10); White Blood Cell (WBC) Count 10.1 thou/uL (4.8-10.8)
[2018-04-19 06:41] LABS: ALT (SGPT) 18 U/L (8-55); AST (SGOT) 24 U/L (5-34); Alkaline Phosphatase 51 U/L (40-150); Anion Gap 16 mmol/L (10-20); BUN (Urea Nitrogen) 59 mg/dL (8.4-25.7); Bilirubin, Total 0.6 mg/dL (0.2-1.2); Calc. Creatinine Clearance 14 mL/min (70-130); Calcium 8.5 mg/dL (7.8-10.44); Carbon Dioxide 26 mmol/L (23-31); Chloride 99 mmol/L (98-107); Estimated GFR-MDRD 9; Globulin 2.9 g/dL (2.4-3.5); Glucose 73 mg/dL (83-110); Potassium 5.2 mmol/L (3.5-5.1); Protein, Total 5.9 g/dL (5.8-8.1); Sodium 136 mmol/L (136-145)
[2018-04-19 06:59] LABS: Lactic Acid 0.7 mmol/L (0.5-2.2)
[2018-04-19] MEDS: Heparin 5,000 UNITS/ML VIAL SC SCH ×2 (08:32→21:47)
[2018-04-19] MEDS: Famotidine/PF 20 mg/2ml Vial SLOW IVP SCH (08:32)
[2018-04-19] MEDS: Saccharomyces boulardii 250 MG CAP PO SCH (08:33)
--- NOTE | 2018-04-19 09:55 | PDOC.PN ---
- Subjective Encounter Start Date: 04/19/18 Encounter Start Time: 09:00 Patient seen and examined. No overnight events - Objective Resuscitation Status - Order Detail: 04/17/18 22:23 Resuscitation Status Routine Resuscitation Status: FULL: Full Resuscitation MAR Reviewed: Yes Vital Signs & Weight: Vital Signs (12 hours) Temp Pulse Ox 04/19/18 04:00 98.7 F 04/19/18 00:54 97 04/19/18 00:00 98.7 F Weight Admit Weight 207 lb Weight 207 lb 3.752 oz Most Recent Monitor Data Heart Rate from ECG 80 NIBP 155/66 NIBP BP-Mean 95 Respiration from ECG 29 SpO2 98 I&O: 04/18/18 04/19/18 04/20/18 06:59 06:59 06:59 Intake Total 43 188 Output Total 15 213 Balance 28 -25 Result Diagrams: 04/19/18 Unknown 04/19/18 Unknown EKG Reviewed by me: Yes (nsr) Phys Exam - Physical Examination Constitutional: NAD HEENT: PERRLA, sclera anicteric NG tube with LIS Neck: no JVD, supple Respiratory: no wheezing, no rales, no rhonchi Cardiovascular: RRR, no significant murmur, no rub Gastrointestinal: soft, no distention, positive bowel sounds Musculoskeletal: no edema, pulses present Lymphatic: no nodes Skin: no rash, normal turgor Dx/Plan (1) Acute respiratory failure with hypoxia Code(s): J96.01 - ACUTE RESPIRATORY FAILURE WITH HYPOXIA Status: Acute (2) Demand ischemia Code(s): I24.8 - OTHER FORMS OF ACUTE ISCHEMIC HEART DISEASE Status: Acute (3) Lactic acidosis Code(s): E87.2 - ACIDOSIS Status: Acute (4) Partial small bowel obstruction Status: Acute Comment: vs ileus (5) ESRD on hemodialysis Code(s): N18.6 - END STAGE RENAL DISEASE; Z99.2 - DEPENDENCE ON RENAL DIALYSIS Status: Chronic (6) Macrocytic anemia Code(s): D53.9 - NUTRITIONAL ANEMIA, UNSPECIFIED Status: Chronic - Plan cont current plan of care, continue antibiotics * continue cefepime and vancomycin * bipap as needed * HD as per nephrology * GI recommendation appreciated * pulmonary on case * medication reviewed as below * symptomatic treatment. Review of Systems - Review of Systems Other: unable to review due to his cognitive status - Medications/Allergies Allergies/Adverse Reactions: Allergies Allergy/AdvReac Type Severity Reaction Status Date / Time diphenhydramine AdvReac Verified 04/18/18 00:57 [From [place]] Medications: Current Medications Acetaminophen (Tylenol) 650 mg PO Q4H PRN PRN Reason: Headache/Fever/Mild Pain (1-3) Acetaminophen (Tylenol) 650 mg [place] Q4H PRN PRN Reason: Headache/Fever/Mild Pain (1-3) Albuterol/Ipratropium (Duoneb) 3 ml NEB [id number] PRN PRN Reason: SOB &/or Wheezing Artificial Tears (Tears Naturale) 2 drop EA EYE PRN PRN PRN Reason: Dry Eyes Famotidine (Pepcid) 20 mg SLOW IVP QAM [facility] Last Admin: 04/19/18 08:32 Dose: 20 mg Guaifenesin (Robitussin Sf) 200 mg PO Q4H PRN PRN Reason: Cough Haloperidol Lactate (Haldol) 5 mg IM Q4H PRN PRN Reason: Agitation Last Admin: 04/18/18 13:57 Dose: 5 mg Heparin Sodium (Porcine) (Heparin) 5,000 units SC BID [facility] Last Admin: 04/19/18 08:32 Dose: 5,000 units Hydralazine HCl (Apresoline) 10 mg SLOW IVP Q4H PRN PRN Reason: SBP > 180 and HR < 70 Vancomycin HCl 1.5 gm/ Sodium (Chloride) 300 mls @ 200 mls/hr IVPB [facility] Vancomycin HCl 1.25 gm/ Sodium (Chloride) 250 mls @ 166.667 mls/hr IVPB [facility] Vancomycin HCl 1 gm/ Device 200 mls @ 200 mls/hr IVPB [facility] Vancomycin HCl 750 mg/ Sodium (Chloride) 250 mls @ 250 mls/hr IVPB [facility] Norepinephrine Bitartrate (Levophed) 250 mls @ 0 mls/hr IVPB INF PRN; Protocol PRN Reason: Blood Pressure Cefepime HCl 1 gm/ Sodium (Chloride) 100 mls @ 200 mls/hr IVPB Q24HR@1500 [facility] Last Admin: 04/18/18 15:31 Dose: 100 mls Influenza Virus Vacc Triv Types A&B (Fluzone High-Dose 2018-19 Syr) 0.5 ml IM .ONCE ONE Stop: 04/20/18 09:01 Mineral Oil/White Petrolatum (Eucerin Cream) 0 gm TOP BIDPRN PRN PRN Reason: Dry Skin Miscellaneous Medication (Pharmacy To Dose) 1 each IVPB PRN PRN PRN Reason: Pharmacy to dose Hold Vancomycin For (Level >20) 0 each FS .AT DIALYSIS [facility] Ondansetron HCl (Zofran) 4 mg IVP Q6H PRN PRN Reason: Nausea/Vomiting Pneumococcal 13-Valent Conj Vacc (Prevnar) 0.5 ml IM .ONCE ONE Stop: 04/20/18 09:01 Saccharomyces Boulardii (Florastor) 250 mg PO DAILY [facility] Last Admin: 04/19/18 08:33 Dose: Not Given Sodium Chloride (Flush - Normal Saline) 10 ml IVF Q12HR PRN PRN Reason: Saline Flush Sodium Chloride (Flush - Normal Saline) 10 ml IVF PRN PRN PRN Reason: Saline Flush Sodium Chloride ([place] Nasal [place] 0.65%) 0 ml EA NARE QIDPRN PRN PRN Reason: Nasal Congestion Throat Lozenges (Cepastat Lozenges) 1 diana PO Q2H PRN PRN Reason: Sore Throat
--- NOTE | 2018-04-19 10:04 | PRG ---
DATE OF SERVICE: 04/19/2018 SUBJECTIVE: Valdo Victor this morning remains encephalopathic in the ICU appropriate. OBJECTIVE: VITAL SIGNS: Blood pressure is 155/65, pulse is 80, saturations 98%, respirations 18, temperature is normal. CHEST: Decreased breath sounds. No wheezing. CARDIAC: Normal S1, S2. No gallops. ABDOMEN: Distended and soft. LABORATORY DATA: Creatinine is 5.97. His lytes otherwise normal. White count 10,000, H and H of 9 and 28, platelet count normal. IMPRESSION: 1. Hypertension, sepsis. 2. Bowel obstruction. 3. End-stage renal disease. 4. Encephalopathy. PLAN: At this stage, continue broad-spectrum antibiotics, deescalate once we have all the cultures back. He is on vancomycin and Maxipime. Pulmonary will follow while in the ICU. Job ID: [id number]
--- NOTE | 2018-04-19 11:56 | PRG ---
DATE OF SERVICE: 04/19/2018 SUBJECTIVE: Mr. Victor remains confused. He is in no acute distress. He has an NG tube in place. OBJECTIVE: VITAL SIGNS: Temperature is 97.4, blood pressure 175/76, pulse 109. GENERAL: He states that he has pain all over. LUNGS: Clear to auscultation bilaterally. HEART: Regular rate and rhythm. ABDOMEN: Soft without guarding. He does indicate focal tenderness in the left lower quadrant. Bowel sounds are present. EXTREMITIES: No lower extremity edema. LABORATORY DATA: Creatinine 5.97. IMPRESSION: 1. Acute encephalopathy of unknown etiology at this point. His ammonia is normal and his LFTs are normal. 2. Macrocytic anemia. 3. Left lower quadrant tenderness and ileus. He has NG tube in place without much output this morning. The CT scan suggested some possible thickening of the rectum and sigmoid. Ischemia of this area is possible. Other findings on CT are not consistent with diverticulitis. For now, he is on broad-spectrum antibiotics and these will be continued. After his mental status improves further, then he can potentially try clear liquids; however at this time, he is not anywhere near that at this point given his marked confusion. RECOMMENDATIONS: 1. Continue supportive care and monitor NG output. 2. Continue antibiotics. 3. GI will follow. Job ID: [id number]
[2018-04-19 12:32] LABS: Potassium 5.1 mmol/L (3.5-5.1)
--- NOTE | 2018-04-19 13:04 | PRG ---
DATE OF SERVICE: 04/19/2018 SUBJECTIVE: A 77-year-old gentleman, being seen for end-stage renal disease. The patient is confused. OBJECTIVE: GENERAL: The patient is resting. VITAL SIGNS: Afebrile, pulse 77, breathing 16, blood pressure 169/67. GENERAL APPEARANCE AND MENTAL STATUS: Fair. HEAD/NECK: Normocephalic. Atraumatic. EYES: EOMI. No deformity. EARS: Clear. No ulcers. NOSE: Intact. No lesions. MOUTH: Clear. No discharge. THROAT: Clear. No exudate. LUNGS: Clear. No crackles. CARDIAC: S1, S2. No rub. ABDOMEN: Benign. Bowel sounds positive. GENITALIA/RECTUM: Brambila absent. BACK/EXTREMITIES: Edema 0+. NEUROLOGICAL: The patient is confused and agitated. SKIN: LYMPHATICS: LABORATORY DATA: Labs show potassium 5.2, creatinine 5.9. ASSESSMENT AND PLAN: 1. Stage 6 chronic kidney disease, plan hemodialysis. 2. Hypertension, stable. 3. Hyperkalemia, plan dialysis. 4. Anemia, stable. Job ID: [id number]
--- NOTE | 2018-04-19 13:26 | PRG ---
DATE OF SERVICE: 04/19/2018 SUBJECTIVE: Mr. Victor remains in the Intensive Care Unit. He no longer has the BiPAP mask on and is apparently breathing better. He had his eyes closed the entire time I was in the room, but a couple of times he nodded his head in response to questions. He grabs at anything that is nearby his hands and he is still restrained for that reason. He does indicate that he has some abdominal discomfort. Nasogastric tube remains in place. OBJECTIVE: VITAL SIGNS: On examination, he is afebrile. Pulse is 77, blood pressure 175/76. His NG output is not recorded. ABDOMEN: Soft, does not appear to be tender to palpation. Bowel sounds are scant. LABORATORY DATA: His white blood cell count is 10.1, hemoglobin is 9.4, platelet count is 246. His potassium is elevated and his creatinine is elevated, consistent with his renal failure. ASSESSMENT: The patient continues to have some degree of encephalopathy. I still suspect that he does not have small bowel obstruction and that his ileus will resolve as his medical issues resolve. I will order a KUB for tomorrow and depending upon the progression of his underlying condition, may consider a Gastrografin small-bowel follow-through. Job ID: [id number]
[2018-04-19] MEDS: Cefepime 1 GM in Sodium Chloride 0.9% 100 ML IVPB SCH (13:28)
[2018-04-20 05:29] LABS: #Lymphocytes 1.2 thou/uL (1.20-3.40); #Monocytes 0.7 thou/uL (0.11-0.59); #Neutrophils 7.4 thou/uL (1.40-6.50); %Basophils 0.4 % (0.0-1.0); %Eosinophils 0.4 % (0.0-10.0); %Lymphocytes 12.5 % (21.0-51.0); %Monocytes 7.3 % (0.0-10.0); %Neutrophils 79.3 % (42.0-75.0); Mean Corpuscular HGB CONC 32.6 g/dL (32.0-36.0); Mean Corpuscular Hemoglobin 34.8 pg (27.0-31.0); Mean Platelet Volume 6.6 fL (7.4-10.4); Platelet Count 228 thou/uL (130-400); RBC Distribution Width 12.5 % (11.5-14.5); Red Blood Cell (RBC) Count 3.72 mill/uL (4.70-6.10); White Blood Cell (WBC) Count 9.3 thou/uL (4.8-10.8)
[2018-04-20 05:43] LABS: Anion Gap 20 mmol/L (10-20); BUN (Urea Nitrogen) 49 mg/dL (8.4-25.7); BUN/Creatinine Ratio 9.25; Calc. Creatinine Clearance 18 mL/min (70-130); Calcium 8.7 mg/dL (7.8-10.44); Carbon Dioxide 23 mmol/L (23-31); Chloride 101 mmol/L (98-107); Estimated GFR-MDRD 11; Glucose 68 mg/dL (83-110); Phosphorus 2.6 mg/dL (2.3-4.7); Potassium 4.5 mmol/L (3.5-5.1); Sodium 139 mmol/L (136-145)
[2018-04-20] MEDS: Famotidine/PF 20 mg/2ml Vial SLOW IVP SCH (08:43)
[2018-04-20] MEDS: Heparin 5,000 UNITS/ML VIAL SC SCH ×2 (08:43→21:25)
[2018-04-20] MEDS: Saccharomyces boulardii 250 MG CAP PO SCH (08:57)
[2018-04-20] MEDS ORDERED: Prevnar 13-Val Conj/PF 0.5 ML SYRINGE IM ONE (09:00)
--- NOTE | 2018-04-20 09:05 | PRG ---
DATE OF SERVICE: 04/20/2018 SUBJECTIVE: The patient is awake and alert, much more oriented than he was two days ago when I saw him. OBJECTIVE: VITAL SIGNS: On exam, his temperature is 98.4, pulse 93, respirations 15, O2 saturation 100% on 2 L, and blood pressure 127/90. HEENT: Unremarkable. NECK: No JVD. CHEST: Clear without wheezing. CARDIAC: S1, S2 regular. ABDOMEN: Slightly distended. Hypoactive bowel sounds. EXTREMITIES: No edema. LABORATORY DATA: White blood cell count 9.3, hematocrit 39.7, and platelet count 228. Sodium 139, potassium 4.5, BUN 49, creatinine 5.3, glucose 68. ASSESSMENT: 1. Improved encephalopathy. 2. Acute respiratory failure that has resolved. 3. Chronic renal failure. PLAN: 1. Continue dialysis. 2. He is continuing antibiotic therapy. We have seen considerable improvement. I would get Physical Therapy involved and get him moving around and hopefully get him transferred out to the floor soon. Job ID: [id number]
[2018-04-20 09:36] LABS: Vancomycin, Random 12.7 ug/mL (See Comment)
--- NOTE | 2018-04-20 10:23 | PDOC.PN ---
- Subjective Encounter Start Date: 04/20/18 Encounter Start Time: 12:15 Subjective: Patient still very confused, talks but not sensical. No events overnight. - Objective Resuscitation Status - Order Detail: 04/17/18 22:23 Resuscitation Status Routine Resuscitation Status: FULL: Full Resuscitation MAR Reviewed: Yes Vital Signs & Weight: Vital Signs (12 hours) Temp Pulse Resp BP Pulse Ox 04/20/18 08:29 99.7 F H 91 18 160/68 H 94 L 04/20/18 04:17 98.4 F 93 15 127/90 100 04/20/18 00:13 99.3 F 96 14 159/80 H 100 Weight Admit Weight 207 lb Weight 235 lb 1.6 oz Most Recent Monitor Data Heart Rate from ECG 80 NIBP 163/87 NIBP BP-Mean 112 Respiration from ECG 24 SpO2 95 I&O: 04/19/18 04/20/18 04/21/18 06:59 06:59 06:59 Intake Total 188 1945 Output Total 213 700 Balance -25 1245 Result Diagrams: 04/20/18 05:19 04/20/18 05:19 Phys Exam - Physical Examination Constitutional: NAD HEENT: moist MMs Respiratory: no wheezing, no rales, no rhonchi Cardiovascular: RRR distended, decreased breath sounds Neurological: non-focal, moves all 4 limbs Deviation from normal: confused, oriented to name only Dx/Plan (1) Acute metabolic encephalopathy Code(s): G93.41 - METABOLIC ENCEPHALOPATHY Status: Acute (2) Acute respiratory failure with hypoxia Code(s): J96.01 - ACUTE RESPIRATORY FAILURE WITH HYPOXIA Status: Acute (3) Partial small bowel obstruction Status: Acute Comment: vs ileus (4) Demand ischemia Code(s): I24.8 - OTHER FORMS OF ACUTE ISCHEMIC HEART DISEASE Status: Acute (5) Lactic acidosis Code(s): E87.2 - ACIDOSIS Status: Acute (6) ESRD on hemodialysis Code(s): N18.6 - END STAGE RENAL DISEASE; Z99.2 - DEPENDENCE ON RENAL DIALYSIS Status: Chronic (7) Macrocytic anemia Code(s): D53.9 - NUTRITIONAL ANEMIA, UNSPECIFIED Status: Chronic - Plan cont current plan of care, continue antibiotics, DVT proph w/heparin, DVT proph w/SCDs * . - Discharge Day Encounter end time: 12:30
--- NOTE | 2018-04-20 11:46 | PRG ---
DATE OF SERVICE: 04/20/2018 SUBJECTIVE: A 77-year-old gentleman, being seen for end-stage renal disease. The patient denies any nausea, vomiting, or chest pain. OBJECTIVE: CONSTITUTIONAL: The patient is awake and alert. VITAL SIGNS: Afebrile, pulse 95, breathing 16, and blood pressure 127/90. GENERAL APPEARANCE AND MENTAL STATUS: Fair. HEAD/NECK: Normocephalic. Atraumatic. EYES: EOMI. No deformity. EARS: Clear. No ulcers. NOSE: Intact. No lesions. MOUTH: Clear. No discharge. THROAT: Clear. No exudate. LUNGS: Clear. No crackles. CARDIAC: S1, S2. No rub. ABDOMEN: Benign. Bowel sounds positive. GENITALIA/RECTUM: Brambila absent. BACK/EXTREMITIES: Edema 0+. NEUROLOGICAL: Alert and motor intact. SKIN: LYMPHATICS: LABORATORY DATA: Labs show hemoglobin 13. ASSESSMENT AND PLAN: 1. Stage 6____ chronic kidney disease. Continue hemodialysis per schedule. 2. Hypertension, stable. 3. Anemia, stable. 4. Uremia, improved. Job ID: [id number] [facility]
[2018-04-20] MEDS: Cefepime 1 GM in Sodium Chloride 0.9% 100 ML IVPB SCH (15:02)
--- NOTE | 2018-04-20 16:13 | PRG ---
DATE OF SERVICE: SUBJECTIVE: Mr. Victor has been transferred from the intensive care unit to the intermediate care unit. He is clearly improving from a mental status standpoint. He is able to converse with me for the first time today. He knows his name and knows that he is in the hospital but cannot tell me his age. His is present at bedside. He denies any discomfort. He specifically tells me he has no abdominal discomfort. Nasogastric tube remains in place. OBJECTIVE: On examination: VITAL SIGNS: He is afebrile. Pulse is 88, blood pressure 157/72. His NG tube apparently put out about 190 mL yesterday. It does not appear to be bilious. LUNGS: Clear to auscultation. ABDOMEN: Soft and nontender. He has some bowel sounds present which are not tympanitic. These are somewhat hypoactive, however. LABORATORY DATA: His CBC is unremarkable with a white blood cell count of 9.3, hemoglobin 13.0. His basic metabolic panel shows normal electrolytes. His calcium and phosphorus are normal. BUN and creatinine are elevated, typical for a dialysis patient. ASSESSMENT: The patient who is clearly improving in regard to his encephalopathy. His abdominal exam appears to be improving simultaneously. I believe at this time that he is stable for small-bowel follow-through. I have ordered this with Gastrografin for tomorrow morning. Assuming this shows no definite evidence of bowel obstruction, then I would hope to be able to remove the nasogastric tube and start him on a clear liquid diet. Job ID: [id number]
--- NOTE | 2018-04-20 17:01 | PRG ---
DATE OF SERVICE: 04/20/2018 SUBJECTIVE: Mr. Victor is more alert today. He has no abdominal pain. OBJECTIVE: VITAL SIGNS: Temperature is 98.0, pulse 88, blood pressure 157/72. GENERAL: He is oriented to his name and to the place. He is still somewhat confused, but doing much better than he was yesterday. He has NG tube in place. LUNGS: Clear to auscultation bilaterally. HEART: Regular rate and rhythm without murmur. ABDOMEN: Soft, nontender, and nondistended. Bowel sounds are present. EXTREMITIES: No lower extremity edema. LABORATORY DATA: White blood cell count 9.3, hemoglobin 13.0. Creatinine 5.3. IMPRESSION: 1. Ileus, appears to be clinically improved. He still has decreased bowel sounds, and Dr. Delcid has ordered a small-bowel follow-through for tomorrow through the NG tube. If this is cleared, then the NG tube can be removed and his diet can be advanced. 2. Sigmoid and rectal thickening by CT scan on admission. He had no diarrhea or blood in the stool to indicate an acute colitis. This may have been from non-distention. Might be reasonable to follow-through with colonoscopy in the future after his acute medical issues are resolved. 3. Acute encephalopathy, apparently related to sepsis syndrome. He is improving. 4. Macrocytic anemia. His hemoglobin is fluctuated. Currently, his hemoglobin is up to 13, however, it was 9.4 yesterday and he has had no blood transfusion. RECOMMENDATIONS: 1. Hopefully, he will be able to remove his NG tube tomorrow if the small-bowel follow-through shows no acute obstructing issues. Clinically, he seems to be tolerating all the secretions well. 2. We will check iron studies, B12, and folate. Job ID: [id number]
--- NOTE | 2018-04-20 19:05 | RAD ---
PORTABLE AP ABDOMINAL RADIOGRAPH: Date: 04-20-18 History: Small bowel obstruction. Ileus. Follow up evaluation. Comparison: 04-17-18 FINDINGS: Nasogastric tube is noted in place, the tip overlying the left upper quadrant and does appear to be b elow the level of the hemidiaphragm, likely within the region of the fundus of the stomach. There are pleural and parenchymal changes at the left lung base which may be related to left pleural effusion and atelectasis although pneumonia at the left lung base is a possibility. The bowel gas pattern is o verall nonspecific. Central venous catheter overlies the right inguinal region. Temperature probe ove rlies the central pelvis with surgical clips seen just inferior to the pubic symphysis. There are deg enerative changes seen within the lumbar spine with right convex scoliosis of the lumbar spine. IMPRESSION: 1. Pleural and parenchymal changes left lung base which could be related to left pleural effusion and atelectasis, but pneumonia is a possibility as there is questionable consolidation in the retrocardi ac region. 2. Nasogastric tube noted in place with tip overlying the expected location of the fundus of the stom ach. Bowel gas pattern is overall nonspecific. POS: [facility]
[2018-04-21 04:29] LABS: Iron 25 ug/dL (65-175); Iron Binding Capacity, Total 165 mcg/dL (261-462)
[2018-04-21 04:59] LABS: Folate (Folic Acid) 8.2 ng/mL (7.0-31.4)
[2018-04-21] MEDS: Haloperidol Lactate 5 MG/ML VIAL IM PRN (05:12)
[2018-04-21] MEDS: Heparin 5,000 UNITS/ML VIAL SC SCH ×2 (08:30→20:32)
[2018-04-21] MEDS: Famotidine/PF 20 mg/2ml Vial SLOW IVP SCH (08:31)
[2018-04-21] MEDS: Saccharomyces boulardii 250 MG CAP PO SCH (08:31)
--- NOTE | 2018-04-21 09:05 | PRG ---
DATE OF SERVICE: 04/21/2018 SUBJECTIVE: The patient is doing about the same. He is confused. He is requiring intermittent Haldol. OBJECTIVE: VITAL SIGNS: Temperature 98.6, pulse 90, respirations 23, O2 saturation 94% on nasal cannula, blood pressure 130/70. HEENT: Unremarkable. NECK: No JVD. LUNGS: Clear, but distant breath sounds. CARDIAC: S1 and S2, regular. ABDOMEN: Soft. EXTREMITIES: Trace edema. ASSESSMENT: 1. Encephalopathy, which is about the same. 2. Acute respiratory failure, resolved. 3. Chronic renal failure. PLAN: He is continuing antibiotic therapy and dialysis, and he has remained in the IMCU given his degree of encephalopathy. Continue p.r.n. Haldol. Since his cultures are negative, I would recommend discontinuing the vancomycin. Job ID: [id number]
--- NOTE | 2018-04-21 09:39 | PDOC.PN ---
- Subjective Encounter Start Date: 04/21/18 Encounter Start Time: 11:15 Subjective: Patient continues to be confused. No events overnight. - Objective Resuscitation Status - Order Detail: 04/17/18 22:23 Resuscitation Status Routine Resuscitation Status: FULL: Full Resuscitation MAR Reviewed: Yes Vital Signs & Weight: Vital Signs (12 hours) Temp Pulse Resp BP Pulse Ox 04/21/18 07:58 98 04/21/18 07:40 98.6 F 90 23 H 153/70 H 94 L 04/21/18 03:47 98.4 F 88 20 151/83 H 97 04/20/18 23:48 98.5 F 89 20 158/71 H 97 Weight Admit Weight 207 lb 3.752 oz Weight 237 lb 8 oz Most Recent Monitor Data Heart Rate from ECG 80 NIBP 163/87 NIBP BP-Mean 112 Respiration from ECG 24 SpO2 95 I&O: 04/20/18 04/21/18 04/22/18 06:59 06:59 06:59 Intake Total 1945 110 Output Total 700 820 Balance 1245 -710 Result Diagrams: 04/20/18 05:19 04/20/18 05:19 Phys Exam - Physical Examination Constitutional: NAD HEENT: moist MMs Respiratory: no wheezing, no rales, no rhonchi Cardiovascular: RRR Gastrointestinal: positive bowel sounds distended, non-tender Neurological: non-focal, moves all 4 limbs Deviation from normal: alert, confused Dx/Plan (1) Acute metabolic encephalopathy Code(s): G93.41 - METABOLIC ENCEPHALOPATHY Status: Acute (2) Acute respiratory failure with hypoxia Code(s): J96.01 - ACUTE RESPIRATORY FAILURE WITH HYPOXIA Status: Acute (3) Partial small bowel obstruction Status: Acute Comment: vs ileus (4) Demand ischemia Code(s): I24.8 - OTHER FORMS OF ACUTE ISCHEMIC HEART DISEASE Status: Acute (5) Lactic acidosis Code(s): E87.2 - ACIDOSIS Status: Acute (6) ESRD on hemodialysis Code(s): N18.6 - END STAGE RENAL DISEASE; Z99.2 - DEPENDENCE ON RENAL DIALYSIS Status: Chronic (7) Macrocytic anemia Code(s): D53.9 - NUTRITIONAL ANEMIA, UNSPECIFIED Status: Chronic (8) Shingles Code(s): B02.9 - ZOSTER WITHOUT COMPLICATIONS Status: Acute Comment: on isolation - Plan cont current plan of care, continue antibiotics, PT/OT, DVT proph w/heparin, DVT proph w/SCDs Vanc d/c'd, Continuing Cefepime -: Awaiting results of Small bowel follow through * . - Discharge Day Encounter end time: 11:30
--- NOTE | 2018-04-21 12:51 | PRG ---
DATE OF SERVICE: SUBJECTIVE: A 77-year-old gentleman, being seen for end-stage renal disease. The patient remains confused. OBJECTIVE: CONSTITUTIONAL: The patient is resting well. VITAL SIGNS: Afebrile, pulse 90, breathing 16, blood pressure . GENERAL APPEARANCE AND MENTAL STATUS: Fair. HEAD/NECK: Normocephalic. Atraumatic. EYES: EOMI. No deformity. EARS: Clear. No ulcers. NOSE: Intact. No lesions. MOUTH: Clear. No discharge. THROAT: Clear. No exudate. LUNGS: Clear. No crackles. CARDIAC: S1, S2. No rub. ABDOMEN: Benign. Bowel sounds positive. GENITALIA/RECTUM: Brambila absent. BACK/EXTREMITIES: Edema 0+. NEUROLOGICAL: The patient is confused. SKIN: LYMPHATICS: LABORATORY DATA: Labs show hemoglobin 13. ASSESSMENT AND PLAN: 1. Stage 6 chronic kidney disease, plan dialysis. 2. Hypertensive, stable. 3. Anemia, stable. 4. Medication based on GFR are appropriate. Job ID: [id number]
--- NOTE | 2018-04-21 14:05 | RAD ---
SMALL BOWEL FOLLOW THROUGH: CLINICAL HISTORY: Gastrografin small bowel follow through for small bowel obstruction. FINDINGS: Radiographic imaging performed for 1-1/2 hours. On the hour image, there is contrast traversing to the level of the colon. The contrast-opacified small bowel loops are borderline size. Contrast r emains within the gastric lumen at 1-1/2 hour image. IMPRESSION: Contrast does traverse to the level of the colon by 1-1/2 hours. This could relate either to a parti al, low-grade obstruction versus ileus. No evidence of high-grade mechanical obstruction. POS: [facility]
--- NOTE | 2018-04-21 15:38 | PRG ---
DATE OF SERVICE: 04/21/2018 SUBJECTIVE: Mr. Victor is little more confused today. He yesterday could tell me his name and location. Today, he is mostly just sleepy and not communicative. He is restrained. He had a liquidy bowel movement with loss of continence following small-bowel follow-through. The small-bowel follow-through did show the contrast to go throughout the small bowel without obstruction. OBJECTIVE: VITAL SIGNS: Temperature 98.6, pulse 85, and blood pressure 171/77. GENERAL: He is in no acute distress. He is confused and sleepy for the most part. LUNGS: Clear to auscultation bilaterally. HEART: Regular rate and rhythm without murmur. ABDOMEN: Soft, nontender, and nondistended. Bowel sounds are present. EXTREMITIES: No lower extremity edema. IMPRESSION: 1. Ileus appears to be improving. The small-bowel follow-through goes through and he did have a bowel movement with the contrast. 2. Encephalopathy. 3. CT scan showed some thickening of the rectum and sigmoid on presentation; however, he had no associated diarrhea or bleeding with that. He could have had some ischemia or this might have just been non-distention of the colon. At this point, his primary issue is the encephalopathy. He can follow up in GI clinic after possible discharge and colonoscopy could be performed to evaluate the area of thickening; however, there is no indication that this represents a malignancy or chronic inflammatory process. RECOMMENDATIONS: 1. He is advancing to a clear liquid diet today and can advance as he tolerates from there as directed by Dr. Delcid. 2. I will sign off for now. Please call if GI can be of assistance. Job ID: [id number]
[2018-04-21] MEDS: Cefepime 1 GM in Sodium Chloride 0.9% 100 ML IVPB SCH (16:02)
--- NOTE | 2018-04-21 16:33 | PRG ---
DATE OF SERVICE: 04/21/2018 SUBJECTIVE: Mr. Victor had presented with dilated intestine, potentially consistent with an ileus or small-bowel obstruction. He had significant encephalopathy and other issues associated with an underlying medical condition. I suspected that he had an ileus related to his underlying medical problems. A nasogastric tube had been placed for a few days. It is noted that for yesterday that he only had 70 mL of output from his NG tube. I therefore ordered a gastrografin small bowel follow-through today. This is in progress at the time that I saw the patient. He had no complaints regarding his abdomen at the time of my visit. A small bowel follow-through revealed passage of the contrast through the intestine and into the colon within an hour and a half. There was noted to still be some contrast within the stomach at that time, indicating that there could still be some component of ileus, but there is clearly no evidence of obstruction. ASSESSMENT: The patient with no evidence of small-bowel obstruction. PLAN: Removal of nasogastric tube and begin clear liquid diet. Job ID: [id number]
[2018-04-21] MEDS ORDERED: MD-Gastroview 120 ML BOT ONE (16:58)
[2018-04-22 07:09] LABS: Hemoglobin 10.8 g/dL (14.0-18.0); Mean Corpuscular HGB CONC 32.3 g/dL (32.0-36.0); Mean Corpuscular Hemoglobin 34.6 pg (27.0-31.0); Platelet Count 342 thou/uL (130-400); RBC Distribution Width 12.3 % (11.5-14.5); Red Blood Cell (RBC) Count 3.12 mill/uL (4.70-6.10); White Blood Cell (WBC) Count 9.7 thou/uL (4.8-10.8)
[2018-04-22 07:17] LABS: Anion Gap 20 mmol/L (10-20); BUN (Urea Nitrogen) 42 mg/dL (8.4-25.7); Calc. Creatinine Clearance 22 mL/min (70-130); Calcium 9.1 mg/dL (7.8-10.44); Carbon Dioxide 27 mmol/L (23-31); Chloride 100 mmol/L (98-107); Estimated GFR-MDRD 13; Glucose 85 mg/dL (83-110); Potassium 3.9 mmol/L (3.5-5.1); Sodium 143 mmol/L (136-145)
--- NOTE | 2018-04-22 08:41 | PRG ---
DATE OF SERVICE: SUBJECTIVE: The patient remains somewhat confused but better than he has been. OBJECTIVE: VITAL SIGNS: Temperature 98.4, pulse 91, respirations 20, sat 100%, blood pressure 136/82. HEENT: Unremarkable. NECK: No JVD. CHEST: Clear. CARDIAC: S1 and S2. Regular. ABDOMEN: Soft. Bowel sounds present. EXTREMITIES: No edema. LABORATORY DATA: White blood cell count 9.7, hematocrit 33, platelet count 342. Sodium 143, potassium 3.9, chloride 100, CO2 of 27, BUN 43, creatinine 4.4, glucose 85. ASSESSMENT: 1. Resolved bowel obstruction. 2. Encephalopathy, which is better. 3. Status post acute respiratory failure. 4. Chronic renal failure. PLAN: The patient is stable for transfer out to medical floor. There are no acute pulmonary issues. We will sign off. Job ID: [id number]
[2018-04-22 09:07] LABS: Band 17 % (5-11); Eosinophils 1 % (0-10); Lymphocytes 19 % (21-51); MDiff Complete? YES; Metamyelocyte 1 % (0-0); Monocytes 13 % (0-10); Neutrophil 49 % (42-75); Polychromasia SLIGHT = 2-3 cells (100X) (0-2/hpf)
[2018-04-22] MEDS: Famotidine/PF 20 mg/2ml Vial SLOW IVP SCH (09:24)
[2018-04-22] MEDS: Heparin 5,000 UNITS/ML VIAL SC SCH ×2 (09:24→21:24)
[2018-04-22] MEDS: Saccharomyces boulardii 250 MG CAP PO SCH (09:24)
[2018-04-22] MEDS: Cefepime 1 GM in Sodium Chloride 0.9% 100 ML IVPB SCH (14:47)
--- NOTE | 2018-04-22 15:00 | PRG ---
DATE OF SERVICE: 04/22/2018 SUBJECTIVE: Mr. Victor is hospital day #6 following his admission to the hospital. He is initially in the intensive care unit. Currently, he is in the intermediate care unit. He had altered mental status at the time of his presentation. He was confused and agitated. He had evidence of bowel dilatation on CT scan. I was consulted in regard to possible small-bowel obstruction. I felt that he more likely had an ileus related to whatever was making him encephalopathic. Yesterday, I obtained a Gastrografin small-bowel follow-through. This revealed that the contrast passed through his colon within about an hour and a half. I am told by nursing staff that he had multiple extraordinarily large bowel movements yesterday and these have continued today. He had no nausea or vomiting after contrast administration. His nasogastric tube was removed yesterday, and he and nursing staff both tell me that he has had no subsequent problems today. He has been on a clear liquid diet, but he still clearly has underlying confusion and has been unable to take very much in the way of clear liquids. OBJECTIVE: VITAL SIGNS: He is afebrile. Pulse is 90, blood pressure is 167/72. LUNGS: Clear to auscultation. ABDOMEN: Soft. He has normoactive bowel sounds and no tenderness in any quadrant. LABORATORY DATA: SS CBC reveals a hemoglobin of 10.8 with a white blood cell count of 9.7. He appears to have a 17% bandemia. Chemistries revealed normal electrolytes. No evidence of acidosis. BUN and creatinine were stable for him in light of his dialysis. ASSESSMENT: The patient is doing well from a surgical standpoint. He clearly has no evidence of bowel obstruction. He appeared to have an ileus that is continuing to resolve. I am certainly not aware of what is causing his encephalopathy. From my standpoint, his diet may be advanced as he tolerates. Since he has had no significant caloric intake for 6 days, it might be worth considering to get start him on TPN until he is able to resume an appropriate diet. As there are no further surgical concerns, I will see him in the future on a p.r.n. basis and we will sign off. Job ID: [id number]
--- NOTE | 2018-04-22 17:44 | PRG ---
DATE OF SERVICE: SUBJECTIVE: A 77-year-old gentleman who is being seen for end-stage renal disease. The patient denied any nausea, vomiting, or chest pain. OBJECTIVE: CONSTITUTIONAL: The patient is awake and alert. VITAL SIGNS: Afebrile, pulse 84, breathing 16, blood pressure 132/74. GENERAL APPEARANCE AND MENTAL STATUS: Fair. HEAD/NECK: Normocephalic. Atraumatic. EYES: EOMI. No deformity. EARS: Clear. No ulcers. NOSE: Intact. No lesions. MOUTH: Clear. No discharge. THROAT: Clear. No exudate. LUNGS: Clear. No crackles. CARDIAC: S1, S2. No rub. ABDOMEN: Benign. Bowel sounds positive. GENITALIA/RECTUM: Brambila absent. BACK/EXTREMITIES: Edema 0+. NEUROLOGICAL: Alert and motor intact. SKIN: LYMPHATICS: LABORATORY DATA: Labs showed hemoglobin of 10.8, potassium 3.9. ASSESSMENT: 1. Stage 3 chronic kidney disease, stable. 2. Hypertension, stable. 3. Anemia, stable. 4. Altered mental status. 5. Management per primary team. Job ID: [id number]
[2018-04-22] MEDS: Haloperidol Lactate 5 MG/ML VIAL IM PRN (22:12)
[2018-04-23] MEDS: Famotidine/PF 20 mg/2ml Vial SLOW IVP SCH (09:27)
[2018-04-23] MEDS: Saccharomyces boulardii 250 MG CAP PO SCH (09:27)
[2018-04-23] MEDS: Heparin 5,000 UNITS/ML VIAL SC SCH ×2 (09:27→20:38)
--- NOTE | 2018-04-23 10:39 | PDOC.PN ---
- Subjective Encounter Start Date: 04/23/18 Encounter Start Time: 08:30 -: old records requested/rev Patient seen and examined. No new complaints. No overnight events no diarrhoea, no pain, want to eat, more alert - Objective Resuscitation Status - Order Detail: 04/17/18 22:23 Resuscitation Status Routine Resuscitation Status: FULL: Full Resuscitation MAR Reviewed: Yes Vital Signs & Weight: Vital Signs (12 hours) Temp Pulse Resp BP Pulse Ox 04/23/18 07:55 98 04/23/18 07:32 99.7 F H 80 29 H 138/63 98 04/23/18 04:27 98.6 F 89 26 H 135/70 98 04/23/18 00:26 98.8 F 92 28 H 157/74 H 95 Weight Admit Weight 207 lb 3.752 oz Weight 237 lb 8 oz Most Recent Monitor Data Heart Rate from ECG 80 NIBP 163/87 NIBP BP-Mean 112 Respiration from ECG 24 SpO2 95 I&O: 04/22/18 04/23/18 04/24/18 06:59 06:59 06:59 Intake Total 430 Output Total 1000 370 Balance -1000 60 Result Diagrams: 04/22/18 04:17 04/22/18 04:17 EKG Reviewed by me: Yes (nsr) Phys Exam - Physical Examination Constitutional: NAD HEENT: PERRLA, moist MMs, sclera anicteric Neck: no JVD, supple Respiratory: no wheezing, no rales, no rhonchi Cardiovascular: RRR, no significant murmur, no rub Gastrointestinal: soft, non-tender, no distention, positive bowel sounds Musculoskeletal: no edema, pulses present Neurological: non-focal, normal sensation Lymphatic: no nodes Psychiatric: normal affect, A&O x 3 Skin: normal turgor Deviation from normal: healing zoster rash Dx/Plan (1) Acute respiratory failure with hypoxia Code(s): J96.01 - ACUTE RESPIRATORY FAILURE WITH HYPOXIA Status: Acute (2) Demand ischemia Code(s): I24.8 - OTHER FORMS OF ACUTE ISCHEMIC HEART DISEASE Status: Acute (3) Lactic acidosis Code(s): E87.2 - ACIDOSIS Status: Acute (4) ESRD on hemodialysis Code(s): N18.6 - END STAGE RENAL DISEASE; Z99.2 - DEPENDENCE ON RENAL DIALYSIS Status: Chronic (5) Macrocytic anemia Code(s): D53.9 - NUTRITIONAL ANEMIA, UNSPECIFIED Status: Chronic (6) Acute metabolic encephalopathy Code(s): G93.41 - METABOLIC ENCEPHALOPATHY Status: Acute (7) Ileus, unspecified Code(s): K56.7 - ILEUS, UNSPECIFIED Status: Acute (8) Shingles Code(s): B02.9 - ZOSTER WITHOUT COMPLICATIONS Status: Acute Comment: on isolation - Plan cont current plan of care, continue antibiotics, PT/OT, manager social media * advance diet today * transfer to surgical floor * medication reviewed as below * symptomatic treatment * continue HD as per nephro * continue cefepime * supportive care and discharge planning. Review of Systems - Review of Systems ENT: negative: Ear Pain, Ear Discharge, Nose Pain, Nose Discharge, Nose Congestion, Mouth Pain, Mouth Swelling, Throat Pain, Throat Swelling, Other Respiratory: negative: Cough, Dry, Shortness of Breath, Hemoptysis, SOB with Excertion, Pleuritic Pain, Sputum, Wheezing Cardiovascular: negative: chest pain, palpitations, orthopnea, paroxysmal nocturnal dyspnea, edema, light headedness, other Gastrointestinal: negative: Nausea, Vomiting, Abdominal Pain, Diarrhea, Constipation, Melena, Hematochezia, Other Genitourinary: negative: Dysuria, Frequency, Incontinence, Hematuria, Retention , Other Musculoskeletal: negative: Neck Pain, Shoulder Pain, Arm Pain, Back Pain, Hand Pain, Leg Pain, Foot Pain, Other Skin: negative: Rash, Lesions, Yannick, Bruising, Other - Medications/Allergies Allergies/Adverse Reactions: Allergies Allergy/AdvReac Type Severity Reaction Status Date / Time diphenhydramine AdvReac Verified 04/18/18 00:57 [From Benadryl] Medications: Current Medications Acetaminophen (Tylenol) 650 mg PO Q4H PRN PRN Reason: Headache/Fever/Mild Pain (1-3) Acetaminophen (Tylenol) 650 mg VT Q4H PRN PRN Reason: Headache/Fever/Mild Pain (1-3) Albuterol/Ipratropium (Duoneb) 3 ml NEB [id number] PRN PRN Reason: SOB &/or Wheezing Artificial Tears (Tears Naturale) 2 drop EA EYE PRN PRN PRN Reason: Dry Eyes Famotidine (Pepcid) 20 mg SLOW [facility] [place] Admin: 04/23/18 09:27 Dose: 20 mg Guaifenesin (Robitussin Sf) 200 mg PO Q4H PRN PRN Reason: Cough Haloperidol Lactate (Haldol) 5 mg IM Q4H PRN PRN Reason: Agitation Last Admin: 04/22/18 22:12 Dose: 5 mg Heparin Sodium (Porcine) (Heparin) 5,000 units SC BID [facility] Last Admin: 04/23/18 09:27 Dose: 5,000 units Hydralazine HCl (Apresoline) 10 mg SLOW IVP Q4H PRN PRN Reason: SBP > 180 and HR < 70 Cefepime HCl 1 gm/ Sodium (Chloride) 100 mls @ 200 mls/hr IVPB Q24HR@1500 [facility] Last Admin: 04/22/18 14:47 Dose: 100 mls Mineral Oil/White Petrolatum (Eucerin Cream) 0 gm TOP BIDPRN PRN PRN Reason: Dry Skin Miscellaneous Medication (Pharmacy To Dose) 1 each IVPB PRN PRN PRN Reason: Pharmacy to dose Ondansetron HCl (Zofran) 4 mg IVP Q6H PRN PRN Reason: Nausea/Vomiting Saccharomyces Boulardii (Florastor) 250 mg PO DAILY [facility] Last Admin: 04/23/18 09:27 Dose: Not Given Sodium Chloride (Flush - Normal Saline) 10 ml IVF Q12HR PRN PRN Reason: Saline Flush Sodium Chloride (Flush - Normal Saline) 10 ml IVF PRN PRN PRN Reason: Saline Flush Sodium Chloride ([place] Nasal Datil 0.65%) 0 ml EA NARE QIDPRN PRN PRN Reason: Nasal Congestion Throat Lozenges (Cepastat Lozenges) 1 diana PO Q2H PRN PRN Reason: Sore Throat
[2018-04-23] MEDS ORDERED: Ondansetron ODT 4 MG TAB PO PRN (11:26)
[2018-04-23] MEDS ORDERED: Senokot S 8.6-50 MG TAB PO PRN (11:26)
[2018-04-23] MEDS ORDERED: Loperamide HCl 2 MG CAP PO PRN (11:26)
[2018-04-23] MEDS ORDERED: Heparin 10,000 UNITS/ 10 ML VIAL ONE (12:00)
--- NOTE | 2018-04-23 13:20 | PRG ---
DATE OF SERVICE: 04/23/2018 SUBJECTIVE: A 77-year-old gentleman being seen for end-stage renal disease. The patient denied any nausea, vomiting, or chest pain. OBJECTIVE: CONSTITUTIONAL: The patient is awake and alert. VITAL SIGNS: Afebrile, pulse 85, breathing 16, blood pressure 138/63. GENERAL APPEARANCE AND MENTAL STATUS: Fair. HEAD/NECK: Normocephalic. Atraumatic. EYES: EOMI. No deformity. EARS: Clear. No ulcers. NOSE: Intact. No lesions. MOUTH: Clear. No discharge. THROAT: Clear. No exudate. LUNGS: Clear. No crackles. CARDIAC: S1, S2. No rub. ABDOMEN: Benign. Bowel sounds positive. GENITALIA/RECTUM: Brambila absent. BACK/EXTREMITIES: Edema 0+. NEUROLOGICAL: Alert and motor intact. SKIN: LYMPHATICS: LABORATORY DATA: Labs showed hemoglobin 10.8. ASSESSMENT: 1. Stage 3 chronic kidney disease, plan dialysis. 2. Hypertension, stable. 3. Anemia, stable. PLAN: Medication based on GFR appropriate. Job ID: [id number]
[2018-04-23] MEDS: Cefepime 1 GM in Sodium Chloride 0.9% 100 ML IVPB SCH (14:33)
[2018-04-23] MEDS: Acetaminophen 325 MG TAB PO PRN (22:05)
[2018-04-24] MEDS: Haloperidol Lactate 5 MG/ML VIAL IM PRN (01:56)
[2018-04-24 06:07] LABS: Albumin 2.8 g/dL (3.4-4.8); Anion Gap 16 mmol/L (10-20); BUN (Urea Nitrogen) 36 mg/dL (8.4-25.7); BUN/Creatinine Ratio 8.82; Calc. Creatinine Clearance 23 mL/min (70-130); Calcium 8.1 mg/dL (7.8-10.44); Carbon Dioxide 26 mmol/L (23-31); Chloride 99 mmol/L (98-107); Estimated GFR-MDRD 14; Glucose 117 mg/dL (83-110); Phosphorus 2.1 mg/dL (2.3-4.7); Potassium 3.6 mmol/L (3.5-5.1); Sodium 137 mmol/L (136-145)
[2018-04-24 06:51] LABS: Band 12 % (5-11); Hemoglobin 9.8 g/dL (14.0-18.0); Lymphocytes 14 % (21-51); MDiff Complete? YES; Mean Corpuscular HGB CONC 33.3 g/dL (32.0-36.0); Mean Corpuscular Hemoglobin 34.7 pg (27.0-31.0); Mean Platelet Volume 6.6 fL (7.4-10.4); Monocytes 4 % (0-10); Neutrophil 70 % (42-75); Platelet Count 347 thou/uL (130-400); RBC Distribution Width 12.1 % (11.5-14.5); Red Blood Cell (RBC) Count 2.83 mill/uL (4.70-6.10); White Blood Cell (WBC) Count 14.6 thou/uL (4.8-10.8)
[2018-04-24] MEDS: Multivitamin W/ Minerals 1 TAB PO SCH (08:45)
[2018-04-24] MEDS: Heparin 5,000 UNITS/ML VIAL SC SCH ×2 (08:45→20:32)
[2018-04-24] MEDS: Ascorbic Acid 500 mg Chewable Tablet PO SCH (08:45)
[2018-04-24] MEDS: Saccharomyces boulardii 250 MG CAP PO SCH (08:45)
[2018-04-24] MEDS: Folic Acid/Vit B Comp W-C PO SCH (08:45)
--- NOTE | 2018-04-24 11:15 | PDOC.PN ---
- Subjective Encounter Start Date: 04/24/18 Encounter Start Time: 08:30 Patient seen and examined. No new complaints. No overnight events pt is confused - Objective Resuscitation Status - Order Detail: 04/17/18 22:23 Resuscitation Status Routine Resuscitation Status: FULL: Full Resuscitation MAR Reviewed: Yes Vital Signs & Weight: Vital Signs (12 hours) Temp Pulse Resp BP Pulse Ox 04/24/18 07:35 98.8 F 96 22 H 126/58 L 94 L 04/24/18 04:16 98.4 F 60 20 111/56 L 96 04/24/18 01:50 108/54 L 04/23/18 23:57 98.9 F 68 20 98/47 L 100 Weight Admit Weight 207 lb 3.752 oz Weight 222 lb 10.67 oz Most Recent Monitor Data Heart Rate from ECG 80 NIBP 163/87 NIBP BP-Mean 112 Respiration from ECG 24 SpO2 95 I&O: 04/23/18 04/24/18 04/25/18 06:59 06:59 06:59 Intake Total 430 870 Output Total 370 350 Balance 60 520 Result Diagrams: 04/24/18 05:25 04/24/18 05:25 Phys Exam - Physical Examination Constitutional: NAD HEENT: PERRLA, moist MMs, sclera anicteric Neck: no JVD, supple Respiratory: no wheezing, no rales, no rhonchi Cardiovascular: RRR, no significant murmur, no rub Gastrointestinal: soft, non-tender, no distention, positive bowel sounds Musculoskeletal: no edema, pulses present right groin central line Neurological: non-focal Lymphatic: no nodes Psychiatric: normal affect Skin: no rash, normal turgor Dx/Plan (1) Acute respiratory failure with hypoxia Code(s): J96.01 - ACUTE RESPIRATORY FAILURE WITH HYPOXIA Status: Acute (2) Demand ischemia Code(s): I24.8 - OTHER FORMS OF ACUTE ISCHEMIC HEART DISEASE Status: Acute (3) Lactic acidosis Code(s): E87.2 - ACIDOSIS Status: Acute (4) ESRD on hemodialysis Code(s): N18.6 - END STAGE RENAL DISEASE; Z99.2 - DEPENDENCE ON RENAL DIALYSIS Status: Chronic (5) Macrocytic anemia Code(s): D53.9 - NUTRITIONAL ANEMIA, UNSPECIFIED Status: Chronic (6) Acute metabolic encephalopathy Code(s): G93.41 - METABOLIC ENCEPHALOPATHY Status: Acute (7) Ileus, unspecified Code(s): K56.7 - ILEUS, UNSPECIFIED Status: Acute (8) Shingles Code(s): B02.9 - ZOSTER WITHOUT COMPLICATIONS Status: Acute Comment: on isolation - Plan cont current plan of care, continue antibiotics, PT/OT, social science research assistant * medication reviewed as below * symptomatic treatment * continue cefepime * HD as per nephrology * supportive care * overall stable but confused, he will need placement\ * child support case officer for discharge planning. Review of Systems - Review of Systems Other: not reliable due to pt's current cognitive status - Medications/Allergies Allergies/Adverse Reactions: Allergies Allergy/AdvReac Type Severity Reaction Status Date / Time diphenhydramine AdvReac Verified 04/18/18 00:57 [From Benadryl] Medications: Current Medications Acetaminophen (Tylenol) 650 mg PO Q4H PRN PRN Reason: Headache/Fever/Mild Pain (1-3) Last Admin: 04/23/18 22:05 Dose: 650 mg Albuterol/Ipratropium (Duoneb) 3 ml NEB [id number] PRN PRN Reason: SOB &/or Wheezing Artificial Tears (Tears Naturale) 2 drop EA EYE PRN PRN PRN Reason: Dry Eyes Ascorbic Acid (Vitamin C) 500 mg PO DAILY [facility] Last Admin: 04/24/18 08:45 Dose: 500 mg Guaifenesin (Robitussin Sf) 200 mg PO Q4H PRN PRN Reason: Cough Haloperidol Lactate (Haldol) 5 mg IM Q4H PRN PRN Reason: Agitation Last Admin: 04/24/18 01:56 Dose: 5 mg Heparin Sodium (Porcine) (Heparin) 5,000 units SC BID [facility] Last Admin: 04/24/18 08:45 Dose: 5,000 units Hydralazine HCl (Apresoline) 10 mg SLOW IVP Q4H PRN PRN Reason: SBP > 180 and HR < 70 Cefepime HCl 1 gm/ Sodium (Chloride) 100 mls @ 200 mls/hr IVPB Q24HR@1500 [facility] Last Admin: 04/23/18 14:33 Dose: 100 mls Iron/Minerals/Multivitamins (Theragran M) 1 tab PO DAILY [facility] Last Admin: 04/24/18 08:45 Dose: 1 tab Loperamide HCl (Imodium) 2 mg PO PRN PRN PRN Reason: Diarrhea/Loose Stools Mineral Oil/White Petrolatum (Eucerin Cream) 0 gm TOP BIDPRN PRN PRN Reason: Dry Skin Miscellaneous Medication (Pharmacy To Dose) 1 each IVPB PRN PRN PRN Reason: Pharmacy to dose Ondansetron HCl (Zofran) 4 mg IVP Q6H PRN PRN Reason: Nausea/Vomiting Ondansetron HCl (Zofran Odt) 4 mg PO Q6H PRN PRN Reason: Nausea/Vomiting Saccharomyces Boulardii (Florastor) 250 mg PO DAILY [facility] Last Admin: 04/24/18 08:45 Dose: 250 mg Senna/Docusate Sodium (Senokot S) 2 tab PO BID PRN PRN Reason: Constipation Sodium Chloride (Flush - Normal Saline) 10 ml IVF Q12HR PRN PRN Reason: Saline Flush Last Admin: 04/23/18 14:34 Dose: 10 ml Sodium Chloride (Flush - Normal Saline) 10 ml IVF PRN PRN PRN Reason: Saline Flush Sodium Chloride ([place] Nasal [place] 0.65%) 0 ml EA NARE QIDPRN PRN PRN Reason: Nasal Congestion Throat Lozenges (Cepastat Lozenges) 1 diana PO Q2H PRN PRN Reason: Sore Throat Vitamin B Complex/Vit C/Folic Acid (Nephro-Gertrude Tablet) 1 tab PO DAILY [facility] Last Admin: 04/24/18 08:45 Dose: 1 tab
--- NOTE | 2018-04-24 15:16 | PRG ---
DATE OF SERVICE: 04/24/2018 SUBJECTIVE: A 77-year-old male being seen for end-stage renal disease. The patient denied any nausea, vomiting, or chest pain. OBJECTIVE: See above. Awake, alert, in no acute distress. VITAL SIGNS: Pulse 88, breathing 16, blood pressure 120/64. GENERAL APPEARANCE AND MENTAL STATUS: Fair. HEAD/NECK: Normocephalic. Atraumatic. EYES: EOMI. No deformity. EARS: Clear. No ulcers. NOSE: Intact. No lesions. MOUTH: Clear. No discharge. THROAT: Clear. No exudate. LUNGS: Clear. No crackles. CARDIAC: S1, S2. No rub. ABDOMEN: Benign. Bowel sounds positive. GENITALIA/RECTUM: Br[place] absent. BACK/EXTREMITIES: Edema 0+. NEUROLOGICAL: Alert and motor intact. SKIN: LYMPHATICS: LABORATORY DATA: Hemoglobin 9.8. ASSESSMENT AND PLAN: 1. Stage 6 chronic kidney disease, stable. 2. Hypertension, stable. 3. Anemia, stable. 4. Medication based on GFR appropriate. Job ID: [id number]
[2018-04-24] MEDS: Cefepime 1 GM in Sodium Chloride 0.9% 100 ML IVPB SCH (15:47)
[2018-04-25 07:19] LABS: #Eosinphils 0.1 thou/uL (0.0-0.7); #Lymphocytes 2.5 thou/uL (1.20-3.40); #Monocytes 1.4 thou/uL (0.11-0.59); #Neutrophils 13.9 thou/uL (1.40-6.50); %Basophils 0.2 % (0.0-1.0); %Eosinophils 0.6 % (0.0-10.0); %Lymphocytes 14.1 % (21.0-51.0); %Neutrophils 77.2 % (42.0-75.0); Hemoglobin 10.1 g/dL (14.0-18.0); Mean Corpuscular Hemoglobin 34.5 pg (27.0-31.0); Mean Platelet Volume 6.5 fL (7.4-10.4); Platelet Count 407 thou/uL (130-400); Red Blood Cell (RBC) Count 2.92 mill/uL (4.70-6.10)
[2018-04-25 07:30] LABS: Anion Gap 17 mmol/L (10-20); BUN (Urea Nitrogen) 58 mg/dL (8.4-25.7); Calc. Creatinine Clearance 16 mL/min (70-130); Carbon Dioxide 26 mmol/L (23-31); Chloride 96 mmol/L (98-107); Estimated GFR-MDRD 10; Glucose 114 mg/dL (83-110); Sodium 135 mmol/L (136-145)
[2018-04-25] MEDS: Ascorbic Acid 500 mg Chewable Tablet PO SCH (13:20)
[2018-04-25] MEDS: Heparin 5,000 UNITS/ML VIAL SC SCH ×2 (13:20→20:28)
[2018-04-25] MEDS: Multivitamin W/ Minerals 1 TAB PO SCH (13:20)
[2018-04-25] MEDS: Folic Acid/Vit B Comp W-C PO SCH (13:20)
[2018-04-25] MEDS: Saccharomyces boulardii 250 MG CAP PO SCH (13:20)
--- NOTE | 2018-04-25 13:31 | PDOC.PN ---
- Subjective Encounter Start Date: 04/25/18 Encounter Start Time: 09:00 Patient seen and examined. No new complaints. No overnight events - Objective Resuscitation Status - Order Detail: 04/17/18 22:23 Resuscitation Status Routine Resuscitation Status: FULL: Full Resuscitation MAR Reviewed: Yes Vital Signs & Weight: Vital Signs (12 hours) Temp Pulse Resp BP Pulse Ox 04/25/18 07:32 98.3 F 92 18 112/65 96 04/25/18 05:00 98.9 F 65 18 114/69 98 Weight Admit Weight 207 lb 3.752 oz Weight 222 lb 3.615 oz Most Recent Monitor Data Heart Rate from ECG 80 NIBP 163/87 NIBP BP-Mean 112 Respiration from ECG 24 SpO2 95 I&O: 04/24/18 04/25/18 04/26/18 06:59 06:59 06:59 Intake Total 870 1140 Output Total 350 250 Balance 520 890 Result Diagrams: 04/25/18 06:58 04/25/18 06:58 Phys Exam - Physical Examination Constitutional: NAD HEENT: PERRLA, moist MMs, sclera anicteric Neck: no JVD, supple Respiratory: no wheezing, no rales, no rhonchi Cardiovascular: RRR, no significant murmur, no rub Gastrointestinal: soft, non-tender, no distention, positive bowel sounds Musculoskeletal: no edema, pulses present Neurological: non-focal, normal sensation Lymphatic: no nodes Psychiatric: normal affect Skin: no rash, normal turgor Dx/Plan (1) Acute respiratory failure with hypoxia Code(s): J96.01 - ACUTE RESPIRATORY FAILURE WITH HYPOXIA Status: Acute (2) Demand ischemia Code(s): I24.8 - OTHER FORMS OF ACUTE ISCHEMIC HEART DISEASE Status: Acute (3) Lactic acidosis Code(s): E87.2 - ACIDOSIS Status: Acute (4) ESRD on hemodialysis Code(s): N18.6 - END STAGE RENAL DISEASE; Z99.2 - DEPENDENCE ON RENAL DIALYSIS Status: Chronic (5) Macrocytic anemia Code(s): D53.9 - NUTRITIONAL ANEMIA, UNSPECIFIED Status: Chronic (6) Acute metabolic encephalopathy Code(s): G93.41 - METABOLIC ENCEPHALOPATHY Status: Acute (7) Ileus, unspecified Code(s): K56.7 - ILEUS, UNSPECIFIED Status: Acute (8) Shingles Code(s): B02.9 - ZOSTER WITHOUT COMPLICATIONS Status: Acute Comment: on isolation - Plan cont current plan of care, continue antibiotics * DC central line and velazquez catheter * change cefepime to oral omnicef * HD as per nephrology * will need placement * medication reviewed as below * symptomatic treatment. Review of Systems - Review of Systems Other: not reliable due to his level of cognitive status - Medications/Allergies Allergies/Adverse Reactions: Allergies Allergy/AdvReac Type Severity Reaction Status Date / Time diphenhydramine AdvReac Verified 04/18/18 00:57 [From Benadryl] Medications: Current Medications Acetaminophen (Tylenol) 650 mg PO Q4H PRN PRN Reason: Headache/Fever/Mild Pain (1-3) Last Admin: 04/23/18 22:05 Dose: 650 mg Albuterol/Ipratropium (Duoneb) 3 ml NEB [id number] PRN PRN Reason: SOB &/or Wheezing Artificial Tears (Tears Naturale) 2 drop EA EYE PRN PRN PRN Reason: Dry Eyes Ascorbic Acid (Vitamin C) 500 mg PO DAILY [facility] Last Admin: 04/25/18 13:20 Dose: 500 mg Cefdinir (Omnicef) 300 mg PO DAILY [facility] Guaifenesin (Robitussin Sf) 200 mg PO Q4H PRN PRN Reason: Cough Haloperidol Lactate (Haldol) 5 mg IM Q4H PRN PRN Reason: Agitation Last Admin: 04/24/18 01:56 Dose: 5 mg Heparin Sodium (Porcine) (Heparin) 5,000 units SC BID [facility] Last Admin: 04/25/18 13:20 Dose: 5,000 units Hydralazine HCl (Apresoline) 10 mg SLOW IVP Q4H PRN PRN Reason: SBP > 180 and HR < 70 Iron/Minerals/Multivitamins (Theragran M) 1 tab PO DAILY [facility] Last Admin: 04/25/18 13:20 Dose: 1 tab Loperamide HCl (Imodium) 2 mg PO PRN PRN PRN Reason: Diarrhea/Loose Stools Mineral Oil/White Petrolatum (Eucerin Cream) 0 gm TOP BIDPRN PRN PRN Reason: Dry Skin Miscellaneous Medication (Pharmacy To Dose) 1 each IVPB PRN PRN PRN Reason: Pharmacy to dose Ondansetron HCl (Zofran) 4 mg IVP Q6H PRN PRN Reason: Nausea/Vomiting Ondansetron HCl (Zofran Odt) 4 mg PO Q6H PRN PRN Reason: Nausea/Vomiting Saccharomyces Boulardii (Florastor) 250 mg PO DAILY [facility] Last Admin: 04/25/18 13:20 Dose: 250 mg Senna/Docusate Sodium (Senokot S) 2 tab PO BID PRN PRN Reason: Constipation Sodium Chloride (Flush - Normal Saline) 10 ml IVF Q12HR PRN PRN Reason: Saline Flush Last Admin: 04/23/18 14:34 Dose: 10 ml Sodium Chloride (Flush - Normal Saline) 10 ml IVF PRN PRN PRN Reason: Saline Flush Sodium Chloride ([place] Nasal [place] 0.65%) 0 ml EA NARE QIDPRN PRN PRN Reason: Nasal Congestion Throat Lozenges (Cepastat Lozenges) 1 diana PO Q2H PRN PRN Reason: Sore Throat Vitamin B Complex/Vit C/Folic Acid (Nephro-Gertrude Tablet) 1 tab PO DAILY [facility] Last Admin: 04/25/18 13:20 Dose: 1 tab
--- NOTE | 2018-04-26 07:27 | PRG ---
DATE OF SERVICE: 04/25/2018 SUBJECTIVE: Patient was seen and examined at bedside and overnight events noted. Patient denies any shortness of breath or chest pain or palpitation. No history of nausea or vomiting or diarrhea or fever or chills or cramps. OBJECTIVE: GENERAL: This is an elderly male, in no apparent distress. VITAL SIGNS: Temperature 98.3, pulse 90, respiratory rate , blood pressure 112/65. HEENT: Atraumatic, normocephalic. Oral mucosa is moist NECK: Supple. CARDIOVASCULAR: S1, S2 heard. Rate and rhythm regular. RESPIRATORY: Clear to auscultation. GASTROINTESTINAL: Abdomen is soft. MUSCULOSKELETAL: No tenderness. No edema. DERMATOLOGIC: No skin rash. NEUROLOGIC: Alert and awake and oriented X3. No focal neurologic deficits. Moving all the extremities. PSYCHIATRIC: Mood and affect normal. LABORATORY DATA: Potassium is 4.0, BUN 58, creatinine is 5.6. ASSESSMENT AND PLAN: 1. End stage renal disease, continue on dialysis as tolerated Wednesday, , and Wednesday. 2. Hypertension. 3. Anemia. 4. Altered mentation, getting better. Plan is continue dialysis as tolerated. Prognosis guarded. Job ID: [id number]
[2018-04-26 08:20] LABS: #Basophils 0.1 thou/uL (0.0-0.2); #Eosinphils 0.2 thou/uL (0.0-0.7); #Lymphocytes 2.1 thou/uL (1.20-3.40); #Monocytes 1.3 thou/uL (0.11-0.59); #Neutrophils 12.3 thou/uL (1.40-6.50); %Basophils 0.5 % (0.0-1.0); %Eosinophils 1.5 % (0.0-10.0); %Lymphocytes 13.4 % (21.0-51.0); %Monocytes 8.1 % (0.0-10.0); %Neutrophils 76.6 % (42.0-75.0); Hemoglobin 10.2 g/dL (14.0-18.0); Mean Corpuscular HGB CONC 33.6 g/dL (32.0-36.0); Mean Corpuscular Hemoglobin 35.5 pg (27.0-31.0); Mean Platelet Volume 6.9 fL (7.4-10.4); Platelet Count 401 thou/uL (130-400); Red Blood Cell (RBC) Count 2.87 mill/uL (4.70-6.10)
[2018-04-26 08:39] LABS: ALT (SGPT) 21 U/L (8-55); AST (SGOT) 25 U/L (5-34); Albumin 2.8 g/dL (3.4-4.8); Alkaline Phosphatase 83 U/L (40-150); Anion Gap 20 mmol/L (10-20); BUN (Urea Nitrogen) 83 mg/dL (8.4-25.7); Bilirubin, Total 0.6 mg/dL (0.2-1.2); Calc. Creatinine Clearance 13 mL/min (70-130); Calcium 7.6 mg/dL (7.8-10.44); Carbon Dioxide 20 mmol/L (23-31); Chloride 96 mmol/L (98-107); Estimated GFR-MDRD 8; Glucose 139 mg/dL (83-110); Potassium 4.4 mmol/L (3.5-5.1); Protein, Total 6.8 g/dL (5.8-8.1); Sodium 132 mmol/L (136-145)
[2018-04-26 08:59] LABS: CKMB 2.3 ng/mL (0-6.6)
[2018-04-26] MEDS: Heparin 5,000 UNITS/ML VIAL SC SCH ×2 (09:00→21:31)
[2018-04-26] MEDS: Cefdinir 300 MG CAP PO SCH (09:00)
[2018-04-26] MEDS: Ascorbic Acid 500 mg Chewable Tablet PO SCH (09:00)
[2018-04-26] MEDS: Multivitamin W/ Minerals 1 TAB PO SCH (09:00)
[2018-04-26] MEDS: Saccharomyces boulardii 250 MG CAP PO SCH (09:01)
[2018-04-26] MEDS: Folic Acid/Vit B Comp W-C PO SCH (09:01)
[2018-04-26] MEDS: Acetaminophen 325 MG TAB PO PRN ×3 (10:54→21:47)
--- NOTE | 2018-04-26 13:38 | PDOC.PN ---
- Subjective Encounter Start Date: 04/26/18 Encounter Start Time: 08:45 Patient seen and examined. No new complaints. No overnight events - Objective Resuscitation Status - Order Detail: 04/17/18 22:23 Resuscitation Status Routine Resuscitation Status: FULL: Full Resuscitation MAR Reviewed: Yes Vital Signs & Weight: Vital Signs (12 hours) Temp Pulse Resp BP Pulse Ox 04/26/18 08:59 91 L 04/26/18 08:02 98.8 F 86 14 124/69 91 L 04/26/18 03:43 98.6 F 89 18 126/81 92 L Weight Admit Weight 207 lb 3.752 oz Weight 227 lb 11.2 oz Most Recent Monitor Data Heart Rate from ECG 80 NIBP 163/87 NIBP BP-Mean 112 Respiration from ECG 24 SpO2 95 I&O: 04/25/18 04/26/18 04/27/18 06:59 06:59 06:59 Intake Total 1140 500 Output Total 250 200 Balance 890 300 Result Diagrams: 04/26/18 08:09 04/26/18 08:09 EKG Reviewed by me: Yes ([id number], [id number]) Phys Exam - Physical Examination Constitutional: NAD HEENT: PERRLA, moist MMs, sclera anicteric Neck: no JVD, supple Respiratory: no wheezing, no rales, no rhonchi Cardiovascular: no significant murmur, no rub, irregular Gastrointestinal: soft, non-tender, no distention Musculoskeletal: no edema, pulses present Neurological: non-focal, normal sensation Dx/Plan (1) Acute respiratory failure with hypoxia Code(s): J96.01 - ACUTE RESPIRATORY FAILURE WITH HYPOXIA Status: Acute (2) Demand ischemia Code(s): I24.8 - OTHER FORMS OF ACUTE ISCHEMIC HEART DISEASE Status: Acute (3) Lactic acidosis Code(s): E87.2 - ACIDOSIS Status: Acute (4) ESRD on hemodialysis Code(s): N18.6 - END STAGE RENAL DISEASE; Z99.2 - DEPENDENCE ON RENAL DIALYSIS Status: Chronic (5) Macrocytic anemia Code(s): D53.9 - NUTRITIONAL ANEMIA, UNSPECIFIED Status: Chronic (6) Acute metabolic encephalopathy Code(s): G93.41 - METABOLIC ENCEPHALOPATHY Status: Acute (7) Ileus, unspecified Code(s): K56.7 - ILEUS, UNSPECIFIED Status: Acute (8) Shingles Code(s): B02.9 - ZOSTER WITHOUT COMPLICATIONS Status: Acute Comment: on isolation (9) Lumbar stenosis with neurogenic claudication Code(s): M48.062 - SPINAL STENOSIS, LUMBAR REGION WITH NEUROGENIC CLAUDICATION Status: Chronic - Plan cont current plan of care, plan discussed w/ family, continue antibiotics, PT/OT , social welfare clerk * medication reviewed as below * symptomatic treatment * await placement arrangement * discussed plan with . * neurosurgery consult per family request for lumbar stenosis Review of Systems - Review of Systems Constitutional: weakness. negative: fever, chills, sweats, malaise, other ENT: negative: Ear Pain, Ear Discharge, Nose Pain, Nose Discharge, Nose Congestion, Mouth Pain, Mouth Swelling, Throat Pain, Throat Swelling, Other Respiratory: negative: Cough, Dry, Shortness of Breath, Hemoptysis, SOB with Excertion, Pleuritic Pain, Sputum, Wheezing Cardiovascular: negative: chest pain, palpitations, orthopnea, paroxysmal nocturnal dyspnea, edema, light headedness, other Gastrointestinal: negative: Nausea, Vomiting, Abdominal Pain, Diarrhea, Constipation, Melena, Hematochezia, Other Genitourinary: negative: Dysuria, Frequency, Incontinence, Hematuria, Retention , Other Musculoskeletal: Back Pain. negative: Neck Pain, Shoulder Pain, Arm Pain, Hand Pain, Leg Pain, Foot Pain, Other - Medications/Allergies Allergies/Adverse Reactions: Allergies Allergy/AdvReac Type Severity Reaction Status Date / Time diphenhydramine AdvReac Verified 04/18/18 00:57 [From Benadryl] Medications: Current Medications Acetaminophen (Tylenol) 650 mg PO Q4H PRN PRN Reason: Headache/Fever/Mild Pain (1-3) Last Admin: 04/26/18 10:54 Dose: 650 mg Albuterol/Ipratropium (Duoneb) 3 ml NEB [id number] PRN PRN Reason: SOB &/or Wheezing Artificial Tears (Tears Naturale) 2 drop EA EYE PRN PRN PRN Reason: Dry Eyes Ascorbic Acid (Vitamin C) 500 mg PO DAILY [facility] Last Admin: 04/26/18 09:00 Dose: 500 mg Cefdinir (Omnicef) 300 mg PO DAILY [facility] Last Admin: 04/26/18 09:00 Dose: 300 mg Guaifenesin (Robitussin Sf) 200 mg PO Q4H PRN PRN Reason: Cough Haloperidol Lactate (Haldol) 5 mg IM Q4H PRN PRN Reason: Agitation Last Admin: 04/24/18 01:56 Dose: 5 mg Heparin Sodium (Porcine) (Heparin) 5,000 units SC BID [facility] Last Admin: 04/26/18 09:00 Dose: 5,000 units Hydralazine HCl (Apresoline) 10 mg SLOW IVP Q4H PRN PRN Reason: SBP > 180 and HR < 70 Iron/Minerals/Multivitamins (Theragran M) 1 tab PO DAILY [facility] Last Admin: 04/26/18 09:00 Dose: 1 tab Loperamide HCl (Imodium) 2 mg PO PRN PRN PRN Reason: Diarrhea/Loose Stools Mineral Oil/White Petrolatum (Eucerin Cream) 0 gm TOP BIDPRN PRN PRN Reason: Dry Skin Ondansetron HCl (Zofran) 4 mg IVP Q6H PRN PRN Reason: Nausea/Vomiting Ondansetron HCl (Zofran Odt) 4 mg PO Q6H PRN PRN Reason: Nausea/Vomiting Saccharomyces Boulardii (Florastor) 250 mg PO DAILY [facility] Last Admin: 04/26/18 09:01 Dose: 250 mg Senna/Docusate Sodium (Senokot S) 2 tab PO BID PRN PRN Reason: Constipation Sodium Chloride (Flush - Normal Saline) 10 ml IVF Q12HR PRN PRN Reason: Saline Flush Last Admin: 04/23/18 14:34 Dose: 10 ml Sodium Chloride (Flush - Normal Saline) 10 ml IVF PRN PRN PRN Reason: Saline Flush Sodium Chloride ([place] Nasal [place] 0.65%) 0 ml EA NARE QIDPRN PRN PRN Reason: Nasal Congestion Throat Lozenges (Cepastat Lozenges) 1 diana PO Q2H PRN PRN Reason: Sore Throat Vitamin B Complex/Vit C/Folic Acid (Nephro-Gertrude Tablet) 1 tab PO DAILY [facility] Last Admin: 04/26/18 09:01 Dose: 1 tab
--- NOTE | 2018-04-26 16:13 | EKG ---
Test Reason : Blood Pressure : / mmHG Vent. Rate : 087 BPM Atrial Rate : 087 BPM P-R Int : 000 ms QRS Dur : 146 ms QT Int : 412 ms P-R-T Axes : 000 -16 010 degrees QTc Int : 495 ms sinus with frequent pacs Right bundle branch block Abnormal ECG When compared with ECG of 17-APR-2018 17:10, (Unconfirmed) Left anterior fascicular block is no longer Present Confirmed by DR. Taya GALAVIZ ([id number]) on 04/26/2018 4:13:25 PM Referred By: BRIGETTE Confirmed By:DR. Taya GALAVIZ
--- NOTE | 2018-04-26 17:03 | PRG ---
DATE OF SERVICE: 04/26/2018 SUBJECTIVE: Patient was seen and examined at bedside and overnight events noted. Patient denies any shortness of breath or chest pain or palpitation. No history of nausea or vomiting or diarrhea or fever or chills or cramps. OBJECTIVE: GENERAL: This is a well-built elderly male, in no apparent distress. VITAL SIGNS: Temperature 98, heart rate 87, respiratory rate 16, blood pressure 134/64. HEENT: Atraumatic, normocephalic. Oral mucosa is moist NECK: Supple. CARDIOVASCULAR: S1, S2 heard. Rate and rhythm regular. RESPIRATORY: Clear to auscultation. GASTROINTESTINAL: Abdomen is soft. MUSCULOSKELETAL: No tenderness. No edema. DERMATOLOGIC: No skin rash. NEUROLOGIC: Alert and awake and oriented X3. No focal neurologic deficits. Moving all the extremities. PSYCHIATRIC: Mood and affect normal. LABORATORY DATA: Potassium 4.4, BUN 83, creatinine 7.0. ASSESSMENT AND PLAN: 1. End-stage renal disease. We will continue on hemodialysis, Wednesday, , and Wednesday dialysis. 2. Hypertension, stable. 3. Anemia. 4. Altered mentation, better. We will continue to monitor. Job ID: [id number]
[2018-04-27 06:56] VITALS: BMI 28.6
[2018-04-27] MEDS: Ascorbic Acid 500 mg Chewable Tablet PO SCH (08:52)
[2018-04-27] MEDS: Cefdinir 300 MG CAP PO SCH (08:52)
[2018-04-27] MEDS: Multivitamin W/ Minerals 1 TAB PO SCH (08:52)
[2018-04-27] MEDS: Folic Acid/Vit B Comp W-C PO SCH (08:52)
[2018-04-27] MEDS: Heparin 5,000 UNITS/ML VIAL SC SCH ×2 (08:52→21:36)
[2018-04-27] MEDS: Saccharomyces boulardii 250 MG CAP PO SCH (08:53)
[2018-04-27 09:01] LABS: #Eosinphils 0.2 thou/uL (0.0-0.7); #Lymphocytes 1.8 thou/uL (1.20-3.40); #Monocytes 1.2 thou/uL (0.11-0.59); #Neutrophils 9.6 thou/uL (1.40-6.50); %Basophils 0.3 % (0.0-1.0); %Eosinophils 1.3 % (0.0-10.0); %Lymphocytes 14.2 % (21.0-51.0); %Monocytes 9.3 % (0.0-10.0); %Neutrophils 74.9 % (42.0-75.0); Hemoglobin 9.7 g/dL (14.0-18.0); Mean Corpuscular HGB CONC 33.7 g/dL (32.0-36.0); Mean Corpuscular Hemoglobin 35.3 pg (27.0-31.0); Mean Platelet Volume 6.7 fL (7.4-10.4); Platelet Count 447 thou/uL (130-400); Red Blood Cell (RBC) Count 2.74 mill/uL (4.70-6.10); White Blood Cell (WBC) Count 12.8 thou/uL (4.8-10.8)
[2018-04-27 09:09] LABS: Anion Gap 18 mmol/L (10-20); BUN (Urea Nitrogen) 49 mg/dL (8.4-25.7); Calc. Creatinine Clearance 18 mL/min (70-130); Calcium 7.8 mg/dL (7.8-10.44); Carbon Dioxide 25 mmol/L (23-31); Chloride 94 mmol/L (98-107); Estimated GFR-MDRD 11; Glucose 150 mg/dL (83-110); Potassium 3.5 mmol/L (3.5-5.1); Sodium 133 mmol/L (136-145)
--- NOTE | 2018-04-27 10:58 | PDOC.PN ---
- Subjective Encounter Start Date: 04/27/18 Encounter Start Time: 08:50 Patient seen and examined. No new complaints. No overnight events - Objective Resuscitation Status - Order Detail: 04/17/18 22:23 Resuscitation Status Routine Resuscitation Status: FULL: Full Resuscitation MAR Reviewed: Yes Vital Signs & Weight: Vital Signs (12 hours) Temp Pulse Resp BP Pulse Ox 04/27/18 07:25 98.7 F 94 20 115/60 93 L 04/27/18 04:54 98.4 F 90 20 129/61 94 L 04/27/18 00:42 98.1 F 83 20 105/53 L 96 04/26/18 23:15 96 Weight Admit Weight 207 lb 3.752 oz Weight 222 lb 14.197 oz Most Recent Monitor Data Heart Rate from ECG 80 NIBP 163/87 NIBP BP-Mean 112 Respiration from ECG 24 SpO2 95 I&O: 04/26/18 04/27/18 04/28/18 06:59 06:59 06:59 Intake Total 500 1550 Output Total 200 400 Balance 300 1150 Result Diagrams: 04/27/18 08:36 04/27/18 08:36 Phys Exam - Physical Examination Constitutional: NAD HEENT: PERRLA, moist MMs, sclera anicteric Neck: no JVD, supple Respiratory: no wheezing, no rales, no rhonchi, clear to auscultation bilateral Cardiovascular: RRR, no significant murmur, no rub Gastrointestinal: soft, non-tender, no distention Musculoskeletal: no edema, pulses present Neurological: moves all 4 limbs Lymphatic: no nodes Psychiatric: normal affect Skin: no rash, normal turgor Dx/Plan (1) Acute respiratory failure with hypoxia Code(s): J96.01 - ACUTE RESPIRATORY FAILURE WITH HYPOXIA Status: Acute (2) Demand ischemia Code(s): I24.8 - OTHER FORMS OF ACUTE ISCHEMIC HEART DISEASE Status: Acute (3) Lactic acidosis Code(s): E87.2 - ACIDOSIS Status: Acute (4) ESRD on hemodialysis Code(s): N18.6 - END STAGE RENAL DISEASE; Z99.2 - DEPENDENCE ON RENAL DIALYSIS Status: Chronic (5) Macrocytic anemia Code(s): D53.9 - NUTRITIONAL ANEMIA, UNSPECIFIED Status: Chronic (6) Acute metabolic encephalopathy Code(s): G93.41 - METABOLIC ENCEPHALOPATHY Status: Acute (7) Ileus, unspecified Code(s): K56.7 - ILEUS, UNSPECIFIED Status: Acute (8) Shingles Code(s): B02.9 - ZOSTER WITHOUT COMPLICATIONS Status: Acute Comment: on isolation (9) Lumbar stenosis with neurogenic claudication Code(s): M48.062 - SPINAL STENOSIS, LUMBAR REGION WITH NEUROGENIC CLAUDICATION Status: Chronic - Plan cont current plan of care, continue antibiotics, PT/OT, criminal justice social worker * medication reviewed as below * symptomatic treatment * await placement * HD as per nephrology. Review of Systems - Review of Systems Eyes: negative: Pain, Vision Change, Conjunctivae Inflammation, Eyelid Inflammation, Redness, Other ENT: negative: Ear Pain, Ear Discharge, Nose Pain, Nose Discharge, Nose Congestion, Mouth Pain, Mouth Swelling, Throat Pain, Throat Swelling, Other Respiratory: negative: Cough, Dry, Shortness of Breath, Hemoptysis, SOB with Excertion, Pleuritic Pain, Sputum, Wheezing Cardiovascular: negative: chest pain, palpitations, orthopnea, paroxysmal nocturnal dyspnea, edema, light headedness, other Gastrointestinal: negative: Nausea, Vomiting, Abdominal Pain, Diarrhea, Constipation, Melena, Hematochezia, Other Genitourinary: negative: Dysuria, Frequency, Incontinence, Hematuria, Retention , Other Musculoskeletal: Back Pain. negative: Neck Pain, Shoulder Pain, Arm Pain, Hand Pain, Leg Pain, Foot Pain, Other - Medications/Allergies Allergies/Adverse Reactions: Allergies Allergy/AdvReac Type Severity Reaction Status Date / Time diphenhydramine AdvReac Verified 04/18/18 00:57 [From Benadryl] Medications: Current Medications Acetaminophen (Tylenol) 650 mg PO Q4H PRN PRN Reason: Headache/Fever/Mild Pain (1-3) Last Admin: 04/26/18 21:47 Dose: 650 mg Albuterol/Ipratropium (Duoneb) 3 ml NEB [id number] PRN PRN Reason: SOB &/or Wheezing Artificial Tears (Tears Naturale) 2 drop EA EYE PRN PRN PRN Reason: Dry Eyes Ascorbic Acid (Vitamin C) 500 mg PO DAILY [facility] Last Admin: 04/27/18 08:52 Dose: 500 mg Cefdinir (Omnicef) 300 mg PO DAILY [facility] Last Admin: 04/27/18 08:52 Dose: 300 mg Guaifenesin (Robitussin Sf) 200 mg PO Q4H PRN PRN Reason: Cough Haloperidol Lactate (Haldol) 5 mg IM Q4H PRN PRN Reason: Agitation Last Admin: 04/24/18 01:56 Dose: 5 mg Heparin Sodium (Porcine) (Heparin) 5,000 units SC BID [facility] Last Admin: 04/27/18 08:52 Dose: 5,000 units Hydralazine HCl (Apresoline) 10 mg SLOW IVP Q4H PRN PRN Reason: SBP > 180 and HR < 70 Iron/Minerals/Multivitamins (Theragran M) 1 tab PO DAILY [facility] Last Admin: 04/27/18 08:52 Dose: 1 tab Loperamide HCl (Imodium) 2 mg PO PRN PRN PRN Reason: Diarrhea/Loose Stools Mineral Oil/White Petrolatum (Eucerin Cream) 0 gm TOP BIDPRN PRN PRN Reason: Dry Skin Ondansetron HCl (Zofran) 4 mg IVP Q6H PRN PRN Reason: Nausea/Vomiting Ondansetron HCl (Zofran Odt) 4 mg PO Q6H PRN PRN Reason: Nausea/Vomiting Saccharomyces Boulardii (Florastor) 250 mg PO DAILY [facility] Last Admin: 04/27/18 08:53 Dose: 250 mg Senna/Docusate Sodium (Senokot S) 2 tab PO BID PRN PRN Reason: Constipation Sodium Chloride (Flush - Normal Saline) 10 ml IVF Q12HR PRN PRN Reason: Saline Flush Last Admin: 04/23/18 14:34 Dose: 10 ml Sodium Chloride (Flush - Normal Saline) 10 ml IVF PRN PRN PRN Reason: Saline Flush Sodium Chloride ([place] Nasal [place] 0.65%) 0 ml EA NARE QIDPRN PRN PRN Reason: Nasal Congestion Throat Lozenges (Cepastat Lozenges) 1 diana PO Q2H PRN PRN Reason: Sore Throat Vitamin B Complex/Vit C/Folic Acid (Nephro-Gertrude Tablet) 1 tab PO DAILY [facility] Last Admin: 04/27/18 08:52 Dose: 1 tab
--- NOTE | 2018-04-27 12:26 | PRG ---
DATE OF SERVICE: 04/27/2018 SUBJECTIVE: Patient was seen and examined at bedside and overnight events noted. Patient denies any shortness of breath or chest pain or palpitation. No history of nausea or vomiting or diarrhea or fever or chills or cramps. OBJECTIVE: GENERAL: This is an elderly male, in no apparent distress. VITAL SIGNS: Temperature 98.7. Heart rate 94. Respiratory rate 20. Blood pressure 115/50. HEENT: Atraumatic, normocephalic. Oral mucosa is moist NECK: Supple. CARDIOVASCULAR: S1, S2 heard. Rate and rhythm regular. RESPIRATORY: Clear to auscultation. GASTROINTESTINAL: Abdomen is soft. MUSCULOSKELETAL: No tenderness. No edema. DERMATOLOGIC: No skin rash. NEUROLOGIC: Alert and awake and oriented X3. No focal neurologic deficits. Moving all the extremities. PSYCHIATRIC: Mood and affect normal. LABORATORY DATA: Potassium is 3.5, BUN is 49, creatinine is 5.03. ASSESSMENT AND PLAN: 1. End-stage renal disease. Continue dialysis on Wednesday, , and Wednesday. 2. Hypertension, stable. 3. Anemia. 4. Altered mentation. We will continue dialysis as tolerated. Job ID: [id number]
[2018-04-27] MEDS: Acetaminophen 325 MG TAB PO PRN (21:36)
[2018-04-28 08:24] LABS: #Basophils 0.1 thou/uL (0.0-0.2); #Eosinphils 0.1 thou/uL (0.0-0.7); #Lymphocytes 2.8 thou/uL (1.20-3.40); #Monocytes 1.3 thou/uL (0.11-0.59); #Neutrophils 7.9 thou/uL (1.40-6.50); %Basophils 0.6 % (0.0-1.0); %Eosinophils 1.1 % (0.0-10.0); %Lymphocytes 22.8 % (21.0-51.0); %Monocytes 10.8 % (0.0-10.0); %Neutrophils 64.7 % (42.0-75.0); Hemoglobin 8.9 g/dL (14.0-18.0); Mean Corpuscular HGB CONC 32.8 g/dL (32.0-36.0); Mean Corpuscular Hemoglobin 33.9 pg (27.0-31.0); Mean Platelet Volume 6.8 fL (7.4-10.4); Platelet Count 473 thou/uL (130-400); RBC Distribution Width 11.8 % (11.5-14.5); Red Blood Cell (RBC) Count 2.62 mill/uL (4.70-6.10); White Blood Cell (WBC) Count 12.1 thou/uL (4.8-10.8)
[2018-04-28 08:46] LABS: Albumin 2.8 g/dL (3.4-4.8); Anion Gap 18 mmol/L (10-20); BUN (Urea Nitrogen) 71 mg/dL (8.4-25.7); BUN/Creatinine Ratio 10.99; Calc. Creatinine Clearance 14 mL/min (70-130); Calcium 7.6 mg/dL (7.8-10.44); Carbon Dioxide 25 mmol/L (23-31); Chloride 97 mmol/L (98-107); Estimated GFR-MDRD 8; Glucose 142 mg/dL (83-110); Phosphorus 3.9 mg/dL (2.3-4.7); Potassium 3.5 mmol/L (3.5-5.1); Sodium 136 mmol/L (136-145)
[2018-04-28] MEDS: Heparin 5,000 UNITS/ML VIAL SC SCH ×2 (09:33→21:25)
--- NOTE | 2018-04-28 09:48 | PDOC.PN ---
- Subjective Encounter Start Date: 04/28/18 Encounter Start Time: 08:40 Patient seen and examined. No new complaints. No overnight events pt seen in HD room - Objective Resuscitation Status - Order Detail: 04/17/18 22:23 Resuscitation Status Routine Resuscitation Status: FULL: Full Resuscitation MAR Reviewed: Yes Vital Signs & Weight: Vital Signs (12 hours) Temp Pulse Resp BP Pulse Ox 04/28/18 04:19 98.0 F 86 20 130/61 95 04/28/18 00:57 98.8 F 88 20 126/67 93 L Weight Admit Weight 207 lb 3.752 oz Weight 222 lb 14.197 oz Most Recent Monitor Data Heart Rate from ECG 80 NIBP 163/87 NIBP BP-Mean 112 Respiration from ECG 24 SpO2 95 I&O: 04/27/18 04/28/18 04/29/18 06:59 06:59 06:59 Intake Total 1550 1640 Output Total 400 675 Balance 1150 965 Result Diagrams: 04/28/18 07:23 04/28/18 07:23 Phys Exam - Physical Examination Constitutional: NAD HEENT: PERRLA, moist MMs, sclera anicteric Neck: no JVD, supple Respiratory: no wheezing, no rales, no rhonchi Cardiovascular: RRR, no significant murmur, no rub Gastrointestinal: soft, non-tender, no distention, positive bowel sounds Musculoskeletal: no edema, pulses present Neurological: non-focal, normal sensation Lymphatic: no nodes Psychiatric: normal affect Skin: no rash, normal turgor Dx/Plan (1) Acute respiratory failure with hypoxia Code(s): J96.01 - ACUTE RESPIRATORY FAILURE WITH HYPOXIA Status: Acute (2) Demand ischemia Code(s): I24.8 - OTHER FORMS OF ACUTE ISCHEMIC HEART DISEASE Status: Acute (3) Lactic acidosis Code(s): E87.2 - ACIDOSIS Status: Acute (4) ESRD on hemodialysis Code(s): N18.6 - END STAGE RENAL DISEASE; Z99.2 - DEPENDENCE ON RENAL DIALYSIS Status: Chronic (5) Macrocytic anemia Code(s): D53.9 - NUTRITIONAL ANEMIA, UNSPECIFIED Status: Chronic (6) Acute metabolic encephalopathy Code(s): G93.41 - METABOLIC ENCEPHALOPATHY Status: Acute (7) Ileus, unspecified Code(s): K56.7 - ILEUS, UNSPECIFIED Status: Acute (8) Shingles Code(s): B02.9 - ZOSTER WITHOUT COMPLICATIONS Status: Acute Comment: on isolation (9) Lumbar stenosis with neurogenic claudication Code(s): M48.062 - SPINAL STENOSIS, LUMBAR REGION WITH NEUROGENIC CLAUDICATION Status: Chronic - Plan cont current plan of care, continue antibiotics, PT/OT, drug abuse social worker * medication reviewed as below * symptomatic treatment * medically stable and continue to improve * will need placement * HD as per nephrology. Review of Systems - Review of Systems ENT: negative: Ear Pain, Ear Discharge, Nose Pain, Nose Discharge, Nose Congestion, Mouth Pain, Mouth Swelling, Throat Pain, Throat Swelling, Other Respiratory: negative: Cough, Dry, Shortness of Breath, Hemoptysis, SOB with Excertion, Pleuritic Pain, Sputum, Wheezing Cardiovascular: negative: chest pain, palpitations, orthopnea, paroxysmal nocturnal dyspnea, edema, light headedness, other Gastrointestinal: negative: Nausea, Vomiting, Abdominal Pain, Diarrhea, Constipation, Melena, Hematochezia, Other Genitourinary: negative: Dysuria, Frequency, Incontinence, Hematuria, Retention , Other Musculoskeletal: negative: Neck Pain, Shoulder Pain, Arm Pain, Back Pain, Hand Pain, Leg Pain, Foot Pain, Other - Medications/Allergies Allergies/Adverse Reactions: Allergies Allergy/AdvReac Type Severity Reaction Status Date / Time diphenhydramine AdvReac Verified 04/18/18 00:57 [From Benadryl] Medications: Current Medications Acetaminophen (Tylenol) 650 mg PO Q4H PRN PRN Reason: Headache/Fever/Mild Pain (1-3) Last Admin: 04/27/18 21:36 Dose: 650 mg Albuterol/Ipratropium (Duoneb) 3 ml NEB [id number] PRN PRN Reason: SOB &/or Wheezing Artificial Tears (Tears Naturale) 2 drop EA EYE PRN PRN PRN Reason: Dry Eyes Ascorbic Acid (Vitamin C) 500 mg PO DAILY [facility] Last Admin: 04/27/18 08:52 Dose: 500 mg Cefdinir (Omnicef) 300 mg PO DAILY [facility] Last Admin: 04/27/18 08:52 Dose: 300 mg Guaifenesin (Robitussin Sf) 200 mg PO Q4H PRN PRN Reason: Cough Haloperidol Lactate (Haldol) 5 mg IM Q4H PRN PRN Reason: Agitation Last Admin: 04/24/18 01:56 Dose: 5 mg Heparin Sodium (Porcine) (Heparin) 5,000 units SC BID [facility] Last Admin: 04/28/18 09:33 Dose: Not Given Hydralazine HCl (Apresoline) 10 mg SLOW IVP Q4H PRN PRN Reason: SBP > 180 and HR < 70 Iron/Minerals/Multivitamins (Theragran M) 1 tab PO DAILY [facility] Last Admin: 04/27/18 08:52 Dose: 1 tab Loperamide HCl (Imodium) 2 mg PO PRN PRN PRN Reason: Diarrhea/Loose Stools Mineral Oil/White Petrolatum (Eucerin Cream) 0 gm TOP BIDPRN PRN PRN Reason: Dry Skin Ondansetron HCl (Zofran) 4 mg IVP Q6H PRN PRN Reason: Nausea/Vomiting Ondansetron HCl (Zofran Odt) 4 mg PO Q6H PRN PRN Reason: Nausea/Vomiting Saccharomyces Boulardii (Florastor) 250 mg PO DAILY [facility] Last Admin: 04/27/18 08:53 Dose: 250 mg Senna/Docusate Sodium (Senokot S) 2 tab PO BID PRN PRN Reason: Constipation Sodium Chloride (Flush - Normal Saline) 10 ml IVF Q12HR PRN PRN Reason: Saline Flush Last Admin: 04/23/18 14:34 Dose: 10 ml Sodium Chloride (Flush - Normal Saline) 10 ml IVF PRN PRN PRN Reason: Saline Flush Sodium Chloride ([place] Nasal [place] 0.65%) 0 ml EA NARE QIDPRN PRN PRN Reason: Nasal Congestion Throat Lozenges (Cepastat Lozenges) 1 diana PO Q2H PRN PRN Reason: Sore Throat Vitamin B Complex/Vit C/Folic Acid (Nephro-Gertrude Tablet) 1 tab PO DAILY [facility] Last Admin: 04/27/18 08:52 Dose: 1 tab
[2018-04-28] MEDS: Folic Acid/Vit B Comp W-C PO SCH (11:41)
[2018-04-28] MEDS: Saccharomyces boulardii 250 MG CAP PO SCH (11:41)
[2018-04-28] MEDS: Multivitamin W/ Minerals 1 TAB PO SCH (11:41)
[2018-04-28] MEDS: Cefdinir 300 MG CAP PO SCH (11:41)
[2018-04-28] MEDS: Ascorbic Acid 500 mg Chewable Tablet PO SCH (11:42)
--- NOTE | 2018-04-28 14:02 | PQF ---
GISEL ARVIZU, ROWAN ROSSI MD [id number] [id number] CLINICAL DOCUMENTATION IMPROVEMENT CLARIFICATION FORM: ICD-10 Updated PLEASE DO AN ADDENDUM TO THE PROGRESS NOTE WITH ANY DOCUMENTATION UPDATES OR ADDITIONS AND CARRY THROUGH TO DC SUMMARY. THANK YOU. DATE: 04/28 ATTN: DR. ROWAN MACHUCA Please exercise your independent, professional judgment in responding to the clarification form. Clinical indicators are provided on the bottom of this form for your review. Please check appropriate box(s) to clarify if the following diagnosis has been ruled in or ruled out: SEPSIS W/SEPTIC SHOCK [ x ] Ruled in diagnosis [ ] Continue to treat [ x ] Resolved [ ] Ruled out diagnosis [ ] Other diagnosis [ ] Unable to determine In addition, please specify: Present on Admission (POA): [ x ] Yes [ ] No [ ] Unable to determine For continuity of documentation, please document condition throughout progress notes and discharge summary. Thank You. CLINICAL INDICATORS - SIGNS / SYMPTOMS / LABS ER PRESENTATION 04/17: SEPSIS ALERT T: 100.3 KS: 130 RR: 26 BP 81/49-130/71 RA SAT: 99%>2L>3L 94-99% LACTIC ACID: 3.9 ER PHYSICIAN DOCUMENTATION: PT CONFUSED, TACHYCARDIC, HYPOTENSIVE, APPEARS TOXIC, UNCOMFORTABLE; PT PRESENTED A SEPSIS ALERT, ...SEPTIC SHOCK, NO IMPROVEMENT W/IVF, NOREPI STARTED TREATMENT IN ER: 1L NS THEN INFUSION; LEVOPHED, IV VANC, CEFEPIME & OFIRMEV ER PHYSICIAN DIAGNOSES: SEPTIC SHOCK, PNEUMONIA, SBO H&P DOCUMENTATION 04/17 (JACK): ASSESSMENT & PLAN: 1) SEPTIC SHOCK LIKELY D /T UNDERLYING COLITIS. ...WE HAVE PUT IN A CENTRAL LINE & WILL START THE PATIENT ON LEVOPHED, ADMIT TO ICU; 5) ACUTE RESPIRATORY FAILURE PULM CON 04/18 (SCARLETT): ASSESSMENT: 1) SEPSIS THOUGHT 2/2 DIVERTICULITIS VS BOWEL OBSTRUCTION NO FURTHER MENTION OF SEPSIS TO DATE RISKS: ACUTE RESPIRATORY FAILURE ACUTE METABOLIC ENCEPHALOPATHY TREATMENT: LEVOPHED (04/17 - ) CCU MONITORING (04/17 - 04/19) IV ANTIBIOTICS (CEFEPIME & VANCOMYCIN 04/18 - 04/24) SUPPLEMENTAL OXYGEN (04/17 - 1/8) THANK YOU! Elizabeth (This form is maintained as a part of the permanent medical record) 2014 [employer] [place] All Rights Reserved Elizabeth Cooper RN, BSN [email or web address] Office: [phone] [facility]
[2018-04-28] MEDS: Acetaminophen 325 MG TAB PO PRN (15:17)
--- NOTE | 2018-04-28 19:09 | PRG ---
DATE OF SERVICE: 04/28/2018 SUBJECTIVE: Patient was seen and examined at bedside and overnight events noted. Patient denies any shortness of breath or chest pain or palpitation. No history of nausea or vomiting or diarrhea or fever or chills or cramps. OBJECTIVE: GENERAL: This is an elderly male, in no apparent distress. VITAL SIGNS: Temperature 98.4. Heart rate 77. Respiratory rate 18. Blood pressure 138/64. HEENT: Atraumatic, normocephalic. Oral mucosa is moist NECK: Supple. CARDIOVASCULAR: S1, S2 heard. Rate and rhythm regular. RESPIRATORY: Clear to auscultation. GASTROINTESTINAL: Abdomen is soft. MUSCULOSKELETAL: No tenderness. No edema. DERMATOLOGIC: No skin rash. NEUROLOGIC: Alert and awake and oriented X3. No focal neurologic deficits. Moving all the extremities. PSYCHIATRIC: Mood and affect normal. LABORATORY DATA: Potassium 3.5, BUN is 71, and creatinine is 6.4. ASSESSMENT AND PLAN: 1. End-stage renal disease. Continue dialysis on Wednesday, , and Wednesday. The patient today is due dialysis. 2. Hypertension. 3. Anemia. 4. Continue dialysis as tolerated. Altered mentation is better. Job ID: [id number]
[2018-04-29] MEDS: Acetaminophen 325 MG TAB PO PRN ×4 (00:25→15:12)
[2018-04-29] MEDS: Ascorbic Acid 500 mg Chewable Tablet PO SCH (09:18)
[2018-04-29] MEDS: Multivitamin W/ Minerals 1 TAB PO SCH (09:19)
[2018-04-29] MEDS: Cefdinir 300 MG CAP PO SCH (09:19)
[2018-04-29] MEDS: Folic Acid/Vit B Comp W-C PO SCH (09:19)
[2018-04-29] MEDS: Heparin 5,000 UNITS/ML VIAL SC SCH (09:19)
[2018-04-29] MEDS: Saccharomyces boulardii 250 MG CAP PO SCH (09:19)
--- NOTE | 2018-04-29 10:37 | PDOC.PN ---
- Subjective Encounter Start Date: 04/29/18 Encounter Start Time: 07:50 Patient seen and examined. No new complaints. No overnight events - Objective Resuscitation Status - Order Detail: 04/17/18 22:23 Resuscitation Status Routine Resuscitation Status: FULL: Full Resuscitation MAR Reviewed: Yes Vital Signs & Weight: Vital Signs (12 hours) Temp Pulse Resp BP Pulse Ox 04/29/18 08:15 98.1 F 83 20 115/58 L 93 L 04/29/18 04:00 98.4 F 84 20 111/64 100 04/29/18 00:00 98.4 F 86 20 114/68 91 L Weight Admit Weight 207 lb 3.752 oz Weight 226 lb 6.636 oz Most Recent Monitor Data Heart Rate from ECG 80 NIBP 163/87 NIBP BP-Mean 112 Respiration from ECG 24 SpO2 95 I&O: 04/28/18 04/29/18 04/30/18 06:59 06:59 06:59 Intake Total 1640 1370 Output Total 675 Balance 965 1370 Result Diagrams: 04/28/18 07:23 04/28/18 07:23 Phys Exam - Physical Examination Constitutional: NAD HEENT: PERRLA, moist MMs, sclera anicteric Neck: no JVD, supple Respiratory: no wheezing, no rales, no rhonchi Cardiovascular: RRR, no significant murmur, no rub Gastrointestinal: soft, non-tender, no distention, positive bowel sounds Musculoskeletal: no edema, pulses present Neurological: non-focal, normal sensation Lymphatic: no nodes Psychiatric: normal affect Skin: no rash, normal turgor Dx/Plan (1) Acute respiratory failure with hypoxia Code(s): J96.01 - ACUTE RESPIRATORY FAILURE WITH HYPOXIA Status: Resolved (2) Demand ischemia Code(s): I24.8 - OTHER FORMS OF ACUTE ISCHEMIC HEART DISEASE Status: Resolved (3) Lactic acidosis Code(s): E87.2 - ACIDOSIS Status: Resolved (4) ESRD on hemodialysis Code(s): N18.6 - END STAGE RENAL DISEASE; Z99.2 - DEPENDENCE ON RENAL DIALYSIS Status: Chronic (5) Macrocytic anemia Code(s): D53.9 - NUTRITIONAL ANEMIA, UNSPECIFIED Status: Chronic (6) Acute metabolic encephalopathy Code(s): G93.41 - METABOLIC ENCEPHALOPATHY Status: Resolved (7) Ileus, unspecified Code(s): K56.7 - ILEUS, UNSPECIFIED Status: Resolved (8) Shingles Code(s): B02.9 - ZOSTER WITHOUT COMPLICATIONS Status: Resolved Comment: on isolation (9) Lumbar stenosis with neurogenic claudication Code(s): M48.062 - SPINAL STENOSIS, LUMBAR REGION WITH NEUROGENIC CLAUDICATION Status: Chronic (10) Septic shock Code(s): A41.9 - SEPSIS, UNSPECIFIED ORGANISM; R65.21 - SEVERE SEPSIS WITH SEPTIC SHOCK Status: Resolved - Plan cont current plan of care, continue antibiotics, PT/OT, social services assistant * medication reviewed as below * symptomatic treatment * HD as per nephrology * await placement * overall stable and improving. Review of Systems - Review of Systems ENT: negative: Ear Pain, Ear Discharge, Nose Pain, Nose Discharge, Nose Congestion, Mouth Pain, Mouth Swelling, Throat Pain, Throat Swelling, Other Respiratory: negative: Cough, Dry, Shortness of Breath, Hemoptysis, SOB with Excertion, Pleuritic Pain, Sputum, Wheezing Cardiovascular: negative: chest pain, palpitations, orthopnea, paroxysmal nocturnal dyspnea, edema, light headedness, other Gastrointestinal: negative: Nausea, Vomiting, Abdominal Pain, Diarrhea, Constipation, Melena, Hematochezia, Other Genitourinary: negative: Dysuria, Frequency, Incontinence, Hematuria, Retention , Other Musculoskeletal: negative: Neck Pain, Shoulder Pain, Arm Pain, Back Pain, Hand Pain, Leg Pain, Foot Pain, Other Skin: negative: Rash, Lesions, Yannick, Bruising, Other - Medications/Allergies Allergies/Adverse Reactions: Allergies Allergy/AdvReac Type Severity Reaction Status Date / Time diphenhydramine AdvReac Verified 04/18/18 00:57 [From Benadryl] Medications: Current Medications Acetaminophen (Tylenol) 650 mg PO Q4H PRN PRN Reason: Headache/Fever/Mild Pain (1-3) Last Admin: 04/29/18 09:19 Dose: 650 mg Albuterol/Ipratropium (Duoneb) 3 ml NEB [id number] PRN PRN Reason: SOB &/or Wheezing Artificial Tears (Tears Naturale) 2 drop EA EYE PRN PRN PRN Reason: Dry Eyes Ascorbic Acid (Vitamin C) 500 mg PO DAILY [facility] Last Admin: 04/29/18 09:18 Dose: 500 mg Cefdinir (Omnicef) 300 mg PO DAILY [facility] Last Admin: 04/29/18 09:19 Dose: 300 mg Guaifenesin (Robitussin Sf) 200 mg PO Q4H PRN PRN Reason: Cough Haloperidol Lactate (Haldol) 5 mg IM Q4H PRN PRN Reason: Agitation Last Admin: 04/24/18 01:56 Dose: 5 mg Heparin Sodium (Porcine) (Heparin) 5,000 units SC BID [facility] Last Admin: 04/29/18 09:19 Dose: 5,000 units Hydralazine HCl (Apresoline) 10 mg SLOW IVP Q4H PRN PRN Reason: SBP > 180 and HR < 70 Iron/Minerals/Multivitamins (Theragran M) 1 tab PO DAILY [facility] Last Admin: 04/29/18 09:19 Dose: 1 tab Loperamide HCl (Imodium) 2 mg PO PRN PRN PRN Reason: Diarrhea/Loose Stools Mineral Oil/White Petrolatum (Eucerin Cream) 0 gm TOP BIDPRN PRN PRN Reason: Dry Skin Ondansetron HCl (Zofran) 4 mg IVP Q6H PRN PRN Reason: Nausea/Vomiting Ondansetron HCl (Zofran Odt) 4 mg PO Q6H PRN PRN Reason: Nausea/Vomiting Saccharomyces Boulardii (Florastor) 250 mg PO DAILY [facility] Last Admin: 04/29/18 09:19 Dose: 250 mg Senna/Docusate Sodium (Senokot S) 2 tab PO BID PRN PRN Reason: Constipation Sodium Chloride (Flush - Normal Saline) 10 ml IVF Q12HR PRN PRN Reason: Saline Flush Last Admin: 04/23/18 14:34 Dose: 10 ml Sodium Chloride (Flush - Normal Saline) 10 ml IVF PRN PRN PRN Reason: Saline Flush Sodium Chloride ([place] Nasal [place] 0.65%) 0 ml EA NARE QIDPRN PRN PRN Reason: Nasal Congestion Throat Lozenges (Cepastat Lozenges) 1 diana PO Q2H PRN PRN Reason: Sore Throat Vitamin B Complex/Vit C/Folic Acid (Nephro-Gertrude Tablet) 1 tab PO DAILY [facility] Last Admin: 04/29/18 09:19 Dose: 1 tab
--- NOTE | 2018-04-29 16:22 | DIS ---
DATE OF ADMISSION: 04/17/2018 DATE OF DISCHARGE: 04/29/2018 PRIMARY CARE PHYSICIAN: [facility] Call admission. DISCHARGE DISPOSITION: custodial home. PRIMARY DISCHARGE DIAGNOSES: Septic shock, resolved; shingles, resolved; lactic acidosis, resolved; ileus due to sepsis, resolved; demand ischemia due to sepsis; acute respiratory failure with hypoxia, resolved; acute metabolic encephalopathy, resolved. SECONDARY DISCHARGE DIAGNOSES: End-stage renal disease, on hemodialysis; physical deconditioning; macrocytic anemia; lumbar stenosis. PRIMARY PROCEDURE/OPERATION: Maintenance hemodialysis while in hospital, central line placement. RADIOLOGICAL INVESTIGATION: Chest x-ray on admission showed diminished lung volume. Abdomen and pelvis CT scan showed diverticulosis, mucosal thickening of the sigmoid colon. Small bowel x-ray negative for any obstruction. SIGNIFICANT LABORATORY DATA: WBC 12.1, hemoglobin 8.9, platelets 473. INR 1.0. Sodium 136, potassium 3.5, BUN 71, creatinine 6.46, glucose of 142, calcium 7.6. Albumin 2.8. Urinalysis suggestive of UTI. Urine drug screen negative. Serum drug screen negative. Blood culture negative. Influenza negative. Urine culture negative. C diff negative. DISCHARGE MEDICATIONS: 1. Vitamin C 500 mg daily. 2. Multivitamin 1 tablet daily. 3. Nephro-Gertrude 1 tablet daily. 4. Omnicef 300 mg p.o. daily for 7 more days. 5. Florastor 250 mg p.o. daily for 7 more days. CONTRAINDICATION: None. CODE STATUS: Full code. INPATIENT CONSULTANTS: Nephrology, Dr. Diaz, was following for maintenance hemodialysis. Dr. Langford was following for critical care illness. Dr. Cohen was consulted for sigmoid colon thickening. Dr. Nate Delcid was following for suspected small-bowel obstruction versus ileus. TEST RESULTS PENDING ON DISCHARGE: None. ALLERGIES: BENADRYL. DISCHARGE PLAN: Posthospital, the patient is discharged to [facility]. Subsequently, he will follow up with primary care physician. HOSPITAL COURSE: A 77-year-old male with above-mentioned medical problem, who was initially admitted on April 18, 2018, by Dr. Lozano. Please see his H and P for further details. On admission, the patient was having septic shock. He was hypotensive. He had leukocytosis, and he was meeting sepsis criteria. He required Levophed drip. He was started on broad-spectrum antibiotic therapy. Source of infection on admission was not clear. He had CT abdomen and pelvis which showed sigmoid colitis. Gastroenterology saw this patient for this reason, and they agreed with antibiotic therapy. His initial CT brain and chest x-ray were unremarkable. Abdomen and pelvis CT scan also suspected small bowel obstruction, and that is why General Surgery was consulted, but they were thinking that this patient most likely has ileus rather than obstruction. Pulmonary and Critical Care was following while in hospital as well because of his critical illness and required ICU admission. Nephrology was doing maintenance hemodialysis while in the hospital. Once he was stabilized and small bowel obstruction was ruled out, at that point, the patient was started on diet, and he was tolerating his diet, and he was also off on Levophed drip. Subsequently, this patient was transferred to medical floor, where we continued with antibiotic therapy. His leukocytosis was improving. He was hemodynamically stable. He was getting maintenance hemodialysis while in hospital. On admission, he had shingles which was improving by the time of discharge. On discharge, we changed to Omnicef 300 mg p.o. daily. Rest of medication was continued as per previous. At this point, the patient is hemodynamically stable. The patient is seen and examined at bedside today. Please see my progress note from today for further detail. Total time spent on discharge day, 31 minutes. Job ID: [id number]
--- NOTE | 2018-04-29 16:24 | PRG ---
DATE OF SERVICE: 04/29/2018 SUBJECTIVE: Patient was seen and examined at bedside and overnight events noted. Patient denies any shortness of breath or chest pain or palpitation. No history of nausea or vomiting or diarrhea or fever or chills or cramps. OBJECTIVE: GENERAL: This is an elderly male, in no apparent distress. VITAL SIGNS: Temperature 98.1. Heart rate 87. Respiratory rate 20. Blood pressure 115/50. HEENT: Atraumatic, normocephalic. Oral mucosa is moist NECK: Supple. CARDIOVASCULAR: S1, S2 heard. Rate and rhythm regular. RESPIRATORY: Clear to auscultation. GASTROINTESTINAL: Abdomen is soft. MUSCULOSKELETAL: No tenderness. No edema. DERMATOLOGIC: No skin rash. NEUROLOGIC: Alert and awake and oriented X3. No focal neurologic deficits. Moving all the extremities. PSYCHIATRIC: Mood and affect normal. LABORATORY DATA: Not done today. ASSESSMENT AND PLAN: 1. End-stage renal disease. Continue on hemodialysis on Wednesday, , and Wednesday. 2. Hypertension. 3. Anemia. 4. Edema, controlled. 5. Altered mentation is better. Labs are stable. We will follow. Continue dialysis as tolerated. Job ID: [id number]
[2018-04-29 16:46] VITALS: BP 132/68; TEMP 98.4
--- NOTE | 2018-04-30 18:47 | EKG ---
Test Reason : SEPSIS Blood Pressure : / mmHG Vent. Rate : 128 BPM Atrial Rate : 129 BPM P-R Int : 000 ms QRS Dur : 132 ms QT Int : 320 ms P-R-T Axes : 000 -54 000 degrees QTc Int : 467 ms Atrial fibrillation with rapid ventricular response Right bundle branch block Left anterior fascicular block Bifascicular block Cannot rule out Inferior infarct (masked by fascicular block?) , age undetermined Abnormal ECG Confirmed by FREDRICK CAMARA DO ([id number]), film and video editor RODOLFO PRADO ([id number]) on 04/30/2018 6:46:37 PM Referred By: HOA Confirmed By:FREDRICK CAMARA DO
== END 2018-04-29 17:50 | DRG 871 ==
LOC: ERS 16:56 → CCU 22:49 → IMCU/EMU 04-19 15:36 → SURG A 04-23 10:30
PROVIDERS: ADMIT Internal Medicine; ATTEND Internal Medicine
PROC: 5A09357 Assistance with Respiratory Ventilation, Less than 24 Consecutive Hours, Continuous Positive Airway Pressure (ICD-10-PCS; principal; 2018-04-17)
PROC: 3E043XZ Introduction of Vasopressor into Central Vein, Percutaneous Approach (ICD-10-PCS; 2018-04-17)
PROC: 05HY33Z Insertion of Infusion Device into Upper Vein, Percutaneous Approach (ICD-10-PCS; 2018-04-17)
PROC: 5A1D70Z Performance of Urinary Filtration, Intermittent, Less than 6 Hours Per Day (ICD-10-PCS; 2018-04-18)
DX: A41.9 Sepsis, unspecified organism (principal); R65.21 Severe sepsis with septic shock; N18.6 End stage renal disease; J96.01 Acute respiratory failure with hypoxia; G93.41 Metabolic encephalopathy; K56.7 Ileus, unspecified; I12.0 Hypertensive chronic kidney disease with stage 5 chronic kidney disease or end stage renal disease; B02.8 Zoster with other complications; K57.92 Diverticulitis of intestine, part unspecified, without perforation or abscess without bleeding; I24.8 Other forms of acute ischemic heart disease; E87.2 Acidosis; R65.20 Severe sepsis without septic shock; D63.1 Anemia in chronic kidney disease; K52.9 Noninfective gastroenteritis and colitis, unspecified; M48.062 Spinal stenosis, lumbar region with neurogenic claudication; I48.91 Unspecified atrial fibrillation; Z99.2 Dependence on renal dialysis; E83.52 Hypercalcemia; E78.5 Hyperlipidemia, unspecified; Z78.1 Physical restraint status; Z88.0 Allergy status to penicillin; Z88.8 Allergy status to other drugs, medicaments and biological substances
CPT/HCPCS: 36415; 36556; 51702; 70450; 71045; 74018; 74177; 74250; 80048; 80053; 80069; 80202; 80306; 80307; 81003; 81015; 82140; 82550; 82553; 82607; 82728; 82746; 83540; 83550; 83605; 83690; 83735; 83880; 84443; 84484; 85025; 85610; 85730; 87040; 87086; 87324; 87340; 87449; 87804; 90935; 93005; 93010; 94640; 94660; 94760; 96361; 96365; 96366; 96367; 96375; G0257; J0131; J0360; J0692; J1630; J1644; J2060; J2250; J2405; J3370; J7050; J7620; S0028

== ENCOUNTER 2018-06-20 05:38 | Day surgery (SDC) | payer MEDICARE, BC ==
[2018-06-15 14:59] VITALS: BMI 29.4
--- NOTE | 2018-06-16 13:03 | HP ---
HISTORY OF PRESENT ILLNESS: Mr. Victor is a 78-year-old gentleman, who presents with a protracted course of lower extremity pain, weakness and muscle atrophy. He has an MRI scan performed of lumbar spine which reveals fairly substantial scoliosis of the lumbar spine and also inferiorly migrated disk herniation at L3-L4 and severe foraminal stenosis at L3-L4 and L4-5. Mostly his pain appeared to be best fit with L4 nerve root impingement, right greater than left. He has treated this with injections in the past and has reached a point where he is distressed by his immobility and hopes to move forward with surgery if possible. PAST MEDICAL HISTORY: Significant for end-stage renal disease. He is a hemodialysis patient. PAST SURGICAL HISTORY: Unspecified back surgery in 1981, bilateral eye surgery, AV fistula to the left arm. ALLERGIES: BENADRYL AND PENICILLIN. CURRENT MEDICATIONS: Calcium. PHYSICAL EXAMINATION: GENERAL: The patient is alert and oriented x3. Gait is severely altered and weak. He is using a walker and is heavily dependent on it for mobility sake. ASSESSMENT: Lumbar radiculopathy and spinal stenosis. PLAN: Dr. Hernandez met with the patient, reviewed imaging, advocated for right L3-L4 facetectomy as well as a right L4-5 facetectomy with possible unilateral instrumentation. He explained to the patient the risks, benefits, and alternatives to the procedure. The patient expressed understanding and elected to move forward with surgery as discussed. I do believe the patient is mentally competent and capable of making medical decisions for himself. We will move forward with surgery as planned. Job ID: [id number]
[2018-06-20 07:37] LABS: #Basophils 0.1 thou/uL (0.0-0.2); #Eosinphils 0.1 thou/uL (0.0-0.7); #Monocytes 0.6 thou/uL (0.11-0.59); #Neutrophils 4.3 thou/uL (1.40-6.50); %Basophils 0.8 % (0.0-1.0); %Eosinophils 1.9 % (0.0-10.0); %Lymphocytes 28.7 % (21.0-51.0); %Monocytes 7.8 % (0.0-10.0); %Neutrophils 60.8 % (42.0-75.0)
[2018-06-20 07:55] LABS: Anion Gap 19 mmol/L (10-20); BUN (Urea Nitrogen) 40 mg/dL (8.4-25.7); Calc. Creatinine Clearance 15 mL/min (70-130); Calcium 10.4 mg/dL (7.8-10.44); Carbon Dioxide 32 mmol/L (23-31); Chloride 95 mmol/L (98-107); Estimated GFR-MDRD 9; Glucose 87 mg/dL (83-110); Potassium 3.9 mmol/L (3.5-5.1); Sodium 142 mmol/L (136-145)
[2018-06-20 08:06] LABS: Hemoglobin 12.3 g/dL (14.0-18.0); Mean Corpuscular HGB CONC 31.9 g/dL (32.0-36.0); Mean Corpuscular Hemoglobin 34.5 pg (27.0-31.0); Mean Platelet Volume 6.5 fL (7.4-10.4); Platelet Count 391 thou/uL (130-400); RBC Distribution Width 13.7 % (11.5-14.5); Red Blood Cell (RBC) Count 3.56 mill/uL (4.70-6.10); White Blood Cell (WBC) Count 7.1 thou/uL (4.8-10.8)
[2018-06-20 08:08] LABS: Hypochromia SLIGHT = 6-15 cells (100X) (0-5/hpf); MDiff Complete? YES; Macrocytosis SLIGHT = 6-15 cells (100X) (0-5/hpf); Platelet Morphology Comment Appears Adequate; Polychromasia SLIGHT = 2-3 cells (100X) (0-2/hpf)
[2018-06-20] MEDS ORDERED: Fentanyl 100 MCG/2 ML VIAL ONE ×2 (09:06→10:52)
[2018-06-20] MEDS ORDERED: HYDROmorphone 2 MG/ML VIAL ONE (10:52)
[2018-06-20] MEDS ORDERED: Tamsulosin HCl 0.4 MG CAP ONE (11:08)
[2018-06-20] MEDS ORDERED: Bupivacaine HCl 0.5%/Epinephrine 1:200,000/PF 30 ml Vial ONE (13:08)
[2018-06-20] MEDS ORDERED: Ondansetron PF 4 MG/2 ML Vial ONE (13:14)
[2018-06-20] MEDS ORDERED: Promethazine HCl 25 MG/ML VIAL ONE (14:06)
[2018-06-20] MEDS ORDERED: Sodium Chloride 0.9% 10 ML ONE (14:06)
[2018-06-20] MEDS ORDERED: Lidocaine 1% PF 5 ML VIAL ONE (15:27)
[2018-06-20] MEDS ORDERED: Glycopyrrolate 0.2 MG/ML 5 ML SYRINGE ONE (15:27)
[2018-06-20] MEDS ORDERED: PHENYLEPHRINE-NS 100 MCG/ML 10 ML SYRINGE ONE (15:27)
[2018-06-20] MEDS ORDERED: ePHEDrine 50 MG/ML VIAL ONE (15:27)
[2018-06-20] MEDS ORDERED: PROPOFOL 200 MG/20 ML VIAL ONE (15:27)
[2018-06-20] MEDS ORDERED: Rocuronium Bromide 10 MG/ML (10ML VIAL) ONE (15:27)
--- NOTE | 2018-06-21 09:25 | OP ---
DATE OF PROCEDURE: 06/20/2018 ANIMAL CARE WORKER: Davy Rudd PA-C INDICATION: Pain. DIAGNOSIS: Lumbar radiculopathy. PROCEDURES PERFORMED: Right L3-L4 and right L4-L5 facetectomies and decompression. ANESTHESIA: General. DESCRIPTION OF PROCEDURE: The patient was brought into the operating room and placed under general anesthesia. He was flipped from the supine to prone position on the operating room table. A linear incision was planned over the L3 through L5 segments. After prepping and draping and after an appropriate preoperative pause, the incision was created. The soft tissues were swept away from midline. A self-retaining retractor was placed in the wound for optimal exposure. After confirming the appropriate level with C-arm fluoroscopy, high-speed cutting drill bit was used to perform a laminectomy, medial facetectomies, and foraminotomies, which spanned the L3-L4 and L4-L5 segments. After completely decompressing these segment, the wound was irrigated. Hemostasis was maintained throughout. The wound was then closed in anatomic layers and a pressure dressing was applied. There were no known procedural complications. Job ID: [id number]
== END 2018-06-20 15:10 | disposition home or self-care (01) ==
LOC: SDC 05:38
PROVIDERS: ATTEND Neurological Surgery
PROC: 01NB0ZZ Release Lumbar Nerve, Open Approach (ICD-10-PCS; principal; 2018-06-20)
DX: M51.16 Intervertebral disc disorders with radiculopathy, lumbar region (principal); M48.061 Spinal stenosis, lumbar region without neurogenic claudication; M41.9 Scoliosis, unspecified; N18.6 End stage renal disease; Z99.2 Dependence on renal dialysis; Z88.0 Allergy status to penicillin; Z88.8 Allergy status to other drugs, medicaments and biological substances; Z79.899 Other long term (current) drug therapy
CPT/HCPCS: 36415; 76000; 80048; 85025; J0670; J1170; J2001; J2405; J2550; J2704; J3010; J3490

== ENCOUNTER 2020-02-19 16:01 | Emergency (ER) | payer MEDICARE ==
[2020-02-19 17:06] LABS: #Eosinphils 0.3 thou/uL (0.0-0.7); #Lymphocytes 1.6 thou/uL (1.20-3.40); #Monocytes 0.8 thou/uL (0.11-0.59); #Neutrophils 4.8 thou/uL (1.40-6.50); %Basophils 0.6 % (0.0-1.0); %Eosinophils 4.4 % (0.0-10.0); %Lymphocytes 21.2 % (21.0-51.0); %Neutrophils 63.8 % (42.0-75.0); Hemoglobin 10.1 g/dL (14.0-18.0); Mean Corpuscular HGB CONC 32.6 g/dL (32.0-36.0); Mean Corpuscular Hemoglobin 35.9 pg (27.0-31.0); Mean Platelet Volume 6.3 fL (7.4-10.4); Platelet Count 332 thou/uL (130-400); RBC Distribution Width 12.5 % (11.5-14.5); Red Blood Cell (RBC) Count 2.82 mill/uL (4.70-6.10); White Blood Cell (WBC) Count 7.6 thou/uL (4.8-10.8)
[2020-02-19 17:12] LABS: INR-International Normal Ratio 0.9; PTT 31.6 sec (22.9-36.1); Prothrombin Time 12.6 sec (12.0-14.7)
--- NOTE | 2020-02-19 17:25 | CT ---
CT HEAD WITHOUT IV CONTRAST COMPARISON: 11/20/2019 HISTORY: Head trauma after a fall. TECHNIQUE: Axial CT imaging at 5 mm intervals from vertex through skull base without contrast FINDINGS: There is decreased attenuation in the periventricular white matter which is nonspecific but likely re flective of chronic small vessel ischemic changes. There are a few stable low-density areas in each basal ganglia likely reflective of remote lacunar infarctions. There is mild cerebral volume loss. The ventricular system is normal in size, shape, and position for the degree of sulcal atrophy. There is no evidence of an acute infarction, hemorrhage, mass effect, or midline shift. Skull base has a normal CT appearance. Gross thickening present there is trace thickening in each maxillary antrum. Mastoid air cells are cl ear. Osseous structures appear intact. No depressed calvarial fracture is seen. There is mild scalp soft t issue swelling in the posterior parietal region. IMPRESSION: 1. No acute intracranial abnormality demonstrated. 2. Stable chronic changes. 3. Minimal scalp hematoma posterior parietal region.
[2020-02-19 17:27] LABS: ALT (SGPT) 11 U/L (8-55); AST (SGOT) 22 U/L (5-34); Albumin 3.7 g/dL (3.4-4.8); Alkaline Phosphatase 55 U/L (40-110); Anion Gap 20 mmol/L (10-20); BUN (Urea Nitrogen) 45 mg/dL (8.4-25.7); Bilirubin, Total 0.3 mg/dL (0.2-1.2); Calc. Creatinine Clearance 0 mL/min (70-130); Calcium 9.3 mg/dL (7.8-10.44); Carbon Dioxide 29 mmol/L (23-31); Chloride 96 mmol/L (98-107); Estimated GFR-MDRD 11; Globulin 3.7 g/dL (2.4-3.5); Glucose 107 mg/dL (83-110); Potassium 4.2 mmol/L (3.5-5.1); Protein, Total 7.4 g/dL (5.8-8.1); Sodium 141 mmol/L (136-145)
--- NOTE | 2020-02-19 17:32 | CT ---
EXAM: CT cervical spine PROVIDED CLINICAL HISTORY: Bilateral shoulder pain in hip pain after a fall. Head trauma. TECHNIQUE: Contiguous axial CT images are obtained through the cervical spine from the skull base to the level. Sagittal and coronal reformatted images are provided. COMPARISON: None FINDINGS: There is straightening of the normal cervical lordotic curvature. Multilevel degenerative changes are seen throughout the cervical spine with narrowing of the intervertebral disc spaces extending from the C3-4 level to the C7-T1 level. There are disc osteophyte complexes and uncinate process hypertrop hy as well as facet degenerative changes at multiple levels. Severe left and moderate to severe right neural foraminal narrowing is present C3-4 level, severe right and moderate to severe left-side d neural foraminal narrowing at C4-5, severe right and moderate to severe left-sided neural foraminal narrowing at C5-6, and severe bilateral neural foraminal narrowing at C6-7 level. There are scattered lucencies within the endplates majority of which contain gas and are likely on a degenerative basis and attributable to Schmorl's nodes. There is questionable trace anterolisthesis of C2 on C3, but this is likely attributable to straighte obed of the normal cervical lordotic curvature. No fracture or traumatic subluxation is seen. No prevertebral soft tissue swelling apparent. Limited visualized lung apices are clear. Vascular calcifications are seen in the carotid arteries. IMPRESSION: 1. Multilevel degenerative changes throughout the cervical spine with moderate and severe degrees of neural foraminal narrowing at multiple levels due to disc osteophyte complexes and uncinate process hypertrophy. 2. No acute fracture or traumatic subluxation is seen involving the cervical spine..
[2020-02-19] MEDS ORDERED: Morphine 4 MG/ML VIAL ONE (17:58)
[2020-02-19] MEDS ORDERED: Boostrix 0.5 ML (Tdap) VIAL ONE (17:58)
--- NOTE | 2020-02-19 18:23 | RAD ---
Exam: XR Shoulder Rt 3 View STANDARD HISTORY: Trauma. Unwitnessed fall. Head laceration. COMPARISON: None FINDINGS: No acute fracture, dislocation, or other acute osseous abnormality is identified. Right acromioclavicular joint osteoarthritis is present. Degenerative changes are seen in the visuali zed cervical spine. IMPRESSION: No acute osseous abnormality is identified.
--- NOTE | 2020-02-19 18:27 | RAD ---
Exam: XR Shoulder Lt 3 View STANDARD HISTORY: Trauma. Witnessed fall. Patient claims of bilateral shoulder pain. COMPARISON: None FINDINGS: There is a tiny osseous density seen at the inferior aspect of the glenoid measuring 6 mm. This was p resent on a chest x-ray on 12/17/2019 and may represent a remote avulsion injury. No acute fracture or dislocation is seen. Mild left acromioclavicular joint osteoarthritis is present. Surgical clips are seen at the medial aspect left arm. IMPRESSION: No acute osseous abnormality is identified.
== END 2020-02-19 19:28 | disposition home or self-care (01) ==
LOC: ERS 16:01
DX: S00.01XA Abrasion of scalp, initial encounter (principal); M25.511 Pain in right shoulder; M25.512 Pain in left shoulder; N18.9 Chronic kidney disease, unspecified; M19.90 Unspecified osteoarthritis, unspecified site; W05.0XXA Fall from non-moving wheelchair, initial encounter
CPT/HCPCS: 36415; 70450; 72125; 80053; 85025; 85610; 85730; 86850; 86900; 86901; 90471; 90715; 93005; 96374; J2270

== ENCOUNTER 2020-04-03 19:17 | Inpatient (IN) | payer MEDICARE ==
--- NOTE | 2020-04-03 20:53 | CT ---
CT abdomen and pelvis: 04/03/2020 COMPARISON: 02/16/2017 HISTORY: Fall, sacral pain, hip pain TECHNIQUE: Axial CT imaging at 5 mm intervals from lung bases through pubic symphysis without contras t. Coronal and sagittal reformatted imaging obtained. FINDINGS: Mild linear density in the lingula. Mild linear density in the left lower lobe posteriorly with adjacent small volume left pleural effusion and left pleural thickening. Lack of contrast limits assessment of the viscera, bowel, vascular structures, and for lymphadenopathy. No free intrap eritoneal air. There is a low-density lesion within the right lobe of the liver measuring 4 cm, unchanged when compared to the 2017 exam. Gallbladder, spleen, pancreas, and adrenal glands demonstrate no acute findings. Bilateral kidneys are hypoplastic. Small bilateral renal hypodensities are noted, too small to charac terize on this exam. There is mild wall thickening of the urinary bladder, nonspecific. There is mild bilateral nonspecific hydronephrosis and hydroureter, which may be associated with a degree of b ladder outlet obstruction or reflux. The prostate gland is prominent. There are postoperative clips in the region of the distal rectum, stable. Limited assessment of the bowel demonstrates no evidence for obstruction. Scattered colonic diverticu la noted. Review of the osseous structures demonstrates severe multilevel degenerative change within the lumbar spine with prominent disc space narrowing and degenerative endplate change as well as prominent multilevel facet hypertrophy. Neither hip appears dislocated. The inferior pubic ramus and superior pubic ramus appears intact bila terally. The proximal femora appear grossly unremarkable. No displaced sacral fracture. No acute osseous abnormality. IMPRESSION: Chronic/incidental findings as detailed above. Hydronephrosis and hydroureter with wall t hickening of a nondistended urinary bladder is noted. Nonemergent follow-up urology consultation is suggested. If hip and/or pelvic pain persists and there is clinical concern for a occult fracture, follow-up MRI is suggested.
--- NOTE | 2020-04-03 20:56 | RAD ---
4 views of the right knee: 04/03/2020 COMPARISON: None HISTORY: Fall, trauma, pain FINDINGS: There is vascular calcification adjacent to the knee and posterior to the right femoral sha ft. There is no knee joint effusion, displaced fracture, or evidence of dislocation. There is medial compartment narrowing and chondrocalcinosis. IMPRESSION: No acute fracture or dislocation seen.
--- NOTE | 2020-04-03 20:57 | RAD ---
4 views left knee: 04/03/2020 COMPARISON: None HISTORY: Injury, pain, trauma FINDINGS: Vascular calcifications are seen posteriorly. No knee joint effusion, displaced fracture, o r evidence of dislocation. Medial compartment chondrocalcinosis noted. Mild medial compartment narrowing. IMPRESSION: No displaced fracture or dislocation seen.
[2020-04-03] MEDS ORDERED: HYDROcodone/Acetaminophen 5/325 mg Tablet ONE (22:00)
--- NOTE | 2020-04-03 23:36 | PDOC.HHP ---
Hospitalist HPI - History of Present Illness Fall History of Present Illness: PCP: Dr. Odonnell The patient is a 79-year-old male with past medical history significant for lumbar radiculopathy and ESRD (//WED) that presents to the emergency department via EMS after suffering a mechanical fall. Patient reports that he was ambulating with his roller walker in his bathroom when his right knee "gave out". He reports that this is happened several times in the past. He has a known history of low back issues and recently scheduled an appointment to see Dr. Purvis, however, the appointment is not until May 2020. Also, he spent 1 week in the hospital for a spider bite. He was discharged to [facility], where he spent several weeks with little improvement. Per ER documentation, he is not a good candidate to continue physical therapy because his condition has not improved. At home, he needs full assist by his spouse to stand up. He ambulates with a roller walker. He reports that he has been unable to perform his activities of daily living without assistance from his spouse. This is very upsetting to him. He denies incontinence of bowel/bladder, saddle anesthesia, and fever/illness. He denies illicit drug usage and is not a diabetic. He is not on any blood thinners. He denies any chest pain, heart palpitations or lightheadedness. He denies any vertigo/syncope. He denies hitting his head or LOC. He denies any recent changes to his medications. He did have a recent I&D of his left upper arm after suffering a brown recluse bite. He denies any recent fever or illness. Ultimately, he wants to see neurosurgery because he feels like a burden to his . ED Course: VITAL SIGNS WedApr 03, 2020 19:20 GIANNI Cruz Miranda Resp: 18, Time: 04/03/2020 19:20. VITAL SIGNS WedApr 03, 2020 19:26 GIANNI Cruz Miranda BP: 161/69, Pulse: 78, Resp: 18, Temp: 97.8 (Oral), Pain: 3, O2 sat: 97 on (Room Air), Time: 04/03/2020 19:26. Medications: [place] 10/650 mg Oral Given 22:09 04/03/2020 Hospitalist ROS - Review of Systems All other systems reviewed; all pertinent +/- noted in HPI/Subj - Medication Medications: Allergies: aspirin, Benadryl, diphenhydramine (Unconfirmed) Hospitalist History - Past Medical History Source: patient, RN notes reviewed Musculoskeletal: reports: Chronic low back pain (Lumbar radiculopathy) Renal/: reports: Chronic renal failure (Tuesdays//Saturdays with Dr. Hubbard) - Past Surgical History Past Surgical History: reports: Other (Back surgery x2, Lasix eye surgery bilaterally, left upper extremity fistula, lumbar facetectomies (2019)) - Family History Family History: denies: cerebrovascular accident Other Family History: Noncontributory to this case - Social History Smoking Status: Never smoker Alcohol: reports: Occassional Drugs: reports: none Living Situation: With Family Activity level: uses cane/walker - Exam General Appearance: NAD, awake alert. negative: ill appearing Eye: anicteric sclera ENT: normocephalic atraumatic Neck: supple, symmetric Heart: RRR, no murmur, no gallops, no rubs, normal peripheral pulses Respiratory: CTAB, no wheezes, no rales, no ronchi, normal chest expansion Gastrointestinal: soft, non-tender, normal bowel sounds, no guarding, no rigidity Extremities: no cyanosis, 2+ LE edema (Chronic) Skin: no rashes Neurological - other findings: RLE decreased range of motion, weak, palpable pedal pulse Psychiatric: normal affect, A&O x 3 Hospitalist Results - Radiology Interpretation Other Status: report reviewed by me Additional Comment: Left Knee: IMPRESSION: No displaced fracture or dislocation seen. Right Knee: IMPRESSION: No acute fracture or dislocation seen. CT abdomen/pelvis: IMPRESSION: Chronic/incidental findings as detailed above. Hydronephrosis and hydroureter with wall thickening of a nondistended urinary bladder is noted. Nonemergent follow-up urology consultation is suggested. If hip and/or pelvic pain persists and there is clinical concern for a occult fracture, follow-up MRI is suggested. Hospitalist H&P A/P - Problem (1) Lumbar back pain with radiculopathy affecting right lower extremity Code(s): M54.16 - RADICULOPATHY, LUMBAR REGION Status: Acute (2) Frequent falls Code(s): R29.6 - REPEATED FALLS Status: Acute (3) End-stage renal disease (ESRD) Code(s): N18.6 - END STAGE RENAL DISEASE Status: Chronic - Plan Plan: 79/M with PMH lumbar radiculopathy presents for fall. Admit to medical floor, observation status. Expected length of stay less than 2 midnights. Presented hypertensive, NL HR, RR, SPO2, afebrile. Right/left x-ray knee negative for any acute fractures. CT abdomen pelvis as above. #Lumbar back pain with radiculopathy affecting right lower extremity Chronic. Reviewing records, patient underwent right facetectomy of L3-L4 and L4-L5 by Dr. Hernandez on 06/2018. Also, the patient recently spent 1 week in the hospital and several weeks in outpatient rehab and has become severely deconditioned. So much so that the patient reports he needs assistance with his activities of daily living. He is ambulating with a roller walker at home and his has to help him stand to ambulate. He has scheduled appointment with neurosurgery outpatient, but not until May 2020. Assessment: significant deficit to RLE. Order MRI lumbar spine w/ contrast. Consult neurosurgery. Consult PT. Analgesia as needed. #Frequent falls Likely related to problem #1. Fall precautions. #End-stage renal disease Tuesdays//Saturdays. Government Contracts Manager is Dr. Hubbard Consult nephrology for maintenance hemodialysis. No DVT prophylaxis. No GI prophylaxis. Full code. Discussed the case with Dr. Pastor.
[2020-04-04] MEDS ORDERED: Senokot S 8.6-50 MG TAB PO PRN (00:24)
[2020-04-04] MEDS ORDERED: Ondansetron ODT 4 MG TAB PO PRN (00:24)
[2020-04-04] MEDS ORDERED: Acetaminophen 325 MG TAB PO PRN (00:24)
[2020-04-04 03:50] LABS: #Basophils 0.1 thou/uL (0.0-0.2); #Eosinphils 0.3 thou/uL (0.0-0.7); #Lymphocytes 2.6 thou/uL (1.20-3.40); #Monocytes 0.7 thou/uL (0.11-0.59); #Neutrophils 3.7 thou/uL (1.40-6.50); %Basophils 1.6 % (0.0-1.0); %Eosinophils 3.8 % (0.0-10.0); %Lymphocytes 35.3 % (21.0-51.0); %Monocytes 9.1 % (0.0-10.0); %Neutrophils 50.3 % (42.0-75.0); Hemoglobin 10.3 g/dL (14.0-18.0); Mean Corpuscular HGB CONC 32.8 g/dL (32.0-36.0); Mean Corpuscular Hemoglobin 35.6 pg (27.0-31.0); Platelet Count 286 thou/uL (130-400); RBC Distribution Width 13.1 % (11.5-14.5); White Blood Cell (WBC) Count 7.4 thou/uL (4.8-10.8)
[2020-04-04 04:08] LABS: Anion Gap 17 mmol/L (10-20); BUN (Urea Nitrogen) 37 mg/dL (8.4-25.7); Calc. Creatinine Clearance 0 mL/min (70-130); Calcium 8.9 mg/dL (7.8-10.44); Carbon Dioxide 29 mmol/L (23-31); Chloride 99 mmol/L (98-107); Glucose 83 mg/dL (83-110); Sodium 142 mmol/L (136-145)
[2020-04-04 04:16] LABS: Potassium 2.8 mmol/L (3.5-5.1)
[2020-04-04] MEDS ORDERED: Potassium Chloride 20 MEQ TAB PO SCH ×2 (04:30→05:00)
[2020-04-04] MEDS ORDERED: Potassium Chloride 20 MEQ TAB ONE (05:26)
[2020-04-04 06:26] LABS: SARS-CoV-2 MS2 Positive; SARS-CoV-2 N Gene Negative; SARS-CoV-2 S Gene Negative; SARS-CoV-2 by NAA Not Detected (NotDetected); SARS-CoV-2 orf1ab Negative
[2020-04-04] MEDS ORDERED: Calcium Acetate 667 MG CAP PO SCH (08:00)
[2020-04-04] MEDS ORDERED: Non-Formulary Item 1 EACH (Multivit-Mins/Iron/Folic/Lycop [Centrum Men's Tablet] 1 EACH T PO SCH (09:00)
[2020-04-04] MEDS ORDERED: Non-Formulary Item 1 EACH (Ascorbic Acid [Vitamin C] 500 MG Capsule) PO SCH (09:00)
[2020-04-04 09:53] LABS: Anion Gap 19 mmol/L (10-20); BUN (Urea Nitrogen) 38 mg/dL (8.4-25.7); Calc. Creatinine Clearance 0 mL/min (70-130); Calcium 8.9 mg/dL (7.8-10.44); Carbon Dioxide 30 mmol/L (23-31); Chloride 97 mmol/L (98-107); Glucose 113 mg/dL (83-110); Potassium 3.1 mmol/L (3.5-5.1); Sodium 143 mmol/L (136-145)
[2020-04-04] MEDS: Calcium Acetate 667 MG CAP PO SCH ×3 (10:38→17:56)
[2020-04-04] MEDS: Ascorbic Acid 500 mg Chewable Tablet PO SCH (10:38)
[2020-04-04] MEDS ORDERED: HYDROcodone/Acetaminophen 5/325 mg Tablet ONE (12:06)
[2020-04-04] MEDS: HYDROcodone/Acetaminophen 5/325 mg Tablet PO PRN ×3 (12:10→21:25)
--- NOTE | 2020-04-04 12:41 | CON ---
DATE OF CONSULTATION: REASON FOR CONSULTATION: End-stage renal disease. HISTORY OF PRESENT ILLNESS: This is a very pleasant, 79-year-old gentleman who presented to the hospital after history of fall. The patient was hypokalemic. The patient does dialysis Wednesday, , and Wednesday. The patient denies any nausea, vomiting, or chest pain. PAST MEDICAL HISTORY: Significant for hypertension, end-stage renal disease, history of anemia, history of chronic low back pain, history of tunneled dialysis catheter AV fistula, fracture surgery. SOCIAL HISTORY: No alcohol or drug use. FAMILY HISTORY: Negative for ESRD. ALLERGIES: REVIEWED. HOME MEDICATIONS: List reviewed. Hospital medications reviewed. REVIEW OF SYSTEMS: 15-point review of system was performed and negative except for positives noted above. HEENT: Eyes intact, no diplopia. Ears: No hearing loss or earache. Nose: No discharge or bleeding. CHEST: No cough or phlegm. ABDOMEN: No nausea or vomiting. GENITOURINARY: No hematuria. No Brambila catheter. MUSCULOSKELETAL: No low back pain. No joint swelling or pain. NEUROLOGICAL: No syncope. No seizures. SKIN: No complaints of rash or itching. PSYCHIATRIC: No depression. CONSTITUTIONAL: No weight loss or loss of appetite. LABORATORY DATA: Reviewed. ASSESSMENT: 1. Stage 6 chronic kidney disease, plan dialysis. 2. Hypokalemia. Use of 4K bath. 3. Anemia, stable. Medication based GFR appropriate. Job ID: [id number]
--- NOTE | 2020-04-04 12:51 | PDOC.HOSPP ---
- Subjective Encounter Date: 04/04/20 Encounter Time: 10:00 Subjective: c/o low back pain, has difficulty getting up or walking has lower extremity edema x 2 months per patient no chest pain or sob - Objective Result Diagrams: 04/04/20 03:41 04/04/20 09:05 Hospitalist ROS - Medication Medications: Active Medications Generic Name Dose Route Start Last Admin Trade Name Corwinq PRN Reason Stop Dose Admin Hydrocodone Bitart/Acetaminophen 1 tab 04/04/20 00:24 04/04/20 12:10 Hydrocodone/Acetaminophen 5/325 Mg Tablet PO 1 tab Q4H PRN Administration Moderate Pain (4-6) Ascorbic Acid 500 mg 04/04/20 09:00 04/04/20 10:38 Ascorbic Acid 500 Mg Chewable Tablet PO 500 mg DAILY ORESTES Administration Calcium Acetate 667 mg 04/04/20 08:00 04/04/20 10:38 Calcium Acetate 667 Mg Cap PO 667 mg TID-WM ORESTES Administration - Exam General Appearance: awake alert Eye: PERRL, anicteric sclera ENT: no oropharyngeal lesions, moist mucosa Neck: supple, no JVD Heart: RRR, no murmur Respiratory: no wheezes, rales, rhonchi Gastrointestinal: soft, non-tender, non-distended, normal bowel sounds Extremities: no cyanosis, 2+ LE edema Neurological: cranial nerve grossly intact, no focal deficits Psychiatric: normal affect, A&O x 3 Hosp A/P (1) Frequent falls Code(s): R29.6 - REPEATED FALLS Status: Acute (2) Lumbar back pain with radiculopathy affecting right lower extremity Code(s): M54.16 - RADICULOPATHY, LUMBAR REGION Status: Acute (3) Physical deconditioning Code(s): R53.81 - OTHER MALAISE Status: Acute (4) Chronic back pain Code(s): M54.9 - DORSALGIA, UNSPECIFIED; G89.29 - OTHER CHRONIC PAIN Status: Chronic Qualifiers: Back pain location: low back pain (5) ESRD on hemodialysis Code(s): N18.6 - END STAGE RENAL DISEASE; Z99.2 - DEPENDENCE ON RENAL DIALYSIS Status: Chronic (6) Essential hypertension Code(s): I10 - ESSENTIAL (PRIMARY) HYPERTENSION Status: Chronic (7) Anemia due to chronic kidney disease Code(s): N18.9 - CHRONIC KIDNEY DISEASE, UNSPECIFIED; D63.1 - ANEMIA IN CHRONIC KIDNEY DISEASE Status: Chronic Qualifiers: Chronic kidney disease stage: on chronic dialysis Qualified Code(s): N18.6 - End stage renal disease; D63.1 - Anemia in chronic kidney disease; Z99.2 - Dependence on renal dialysis - Plan hemo/neurostable MRI thoracic and lumbar spine, nsx consultation scar rodas to lower extremities esrd, HD per nephr advice will need rehab/swing bed for dc plan replace potassium
[2020-04-04] MEDS: Multivitamin W/ Minerals 1 TAB PO SCH (15:33)
[2020-04-04 15:48] LABS: Potassium 3.5 mmol/L (3.5-5.1)
[2020-04-04 20:26] VITALS: BMI 26.0
[2020-04-05] MEDS: HYDROcodone/Acetaminophen 5/325 mg Tablet PO PRN ×4 (01:40→22:17)
[2020-04-05] MEDS ORDERED: FLU VACC QS2020-21(65YR UP)/PF 240 MCG/0.7 ML SYRINGE IM ONE (09:00)
--- NOTE | 2020-04-05 10:10 | MRI ---
MRI LUMBAR SPINE WITHOUT CONTRAST: Date: 04/05/2020 INDICATION: Back pain. Leg weakness. Comparison made to MRI lumbar spine dated 03/28/2018. FINDINGS: The lumbar vertebra maintain height. There are severe degenerative changes of the lumbar spine with p rominent osteophytes from the lumbar vertebra and degenerative disc changes at all levels. There is l oss of disc space at all levels below T12, similar to the prior study. Slight scoliotic curvature to the right. No vertebral body edema or compression deformity. L1-2: Broad based disc bulge flattens the thecal sac. Facet hypertrophy results in mild central clive l stenosis. Right foraminal encroachment due to asymmetric disc to the right. Findings at this level appear stable from the prior exam. L2-3: Broad based disc bulge flattens the thecal sac. Prominent facet and ligamentous hypertrophy. M oderate central canal stenosis. Left foraminal stenosis due to asymmetric disc osteophyte complex to the left. Not significantly changed from the prior exam. L3-4: Slight posterolisthesis is unchanged from the prior exam and there is diffuse disc bulge doreen ening the thecal sac. Moderate facet hypertrophy. Moderate to severe central canal stenosis. Severe r ight foraminal stenosis due to asymmetric hypertrophic change of the right facet and the asymmetric d isc bulge. Moderate left foraminal stenosis. There is a small synovial cyst posteriorly on the right measuring approximately 5.0 mm which contributes to the central canal stenosis. Findings at this leve l are not significantly changed. L4-5: Broad based disc bulge. Facet hypertrophy. Moderate central canal stenosis. Severe right jerry inal stenosis secondary to disc osteophyte complex projecting into the foraminal zone and associated facet hypertrophy. Findings are stable from prior exam. L5-S1: Disc bulge abuts the thecal sac. No significant central canal stenosis. Right foraminal steno sis secondary to asymmetric disc osteophyte complex to the right and facet hypertrophy. Not significa ntly changed. IMPRESSION: 1. Multilevel degenerative disc changes with central canal and foraminal stenosis at multiple levels as described above. No significant change from exam of 03/28/2018. 2. Incidentally noted on review of soft tissues is evidence of bilateral hydronephrosis with dilated ureters which are only partially imaged. Recommend clinical correlation and urinary tract evaluation . POS: STEVENSON
--- NOTE | 2020-04-05 10:14 | MRI ---
MRI THORACIC SPINE WITHOUT CONTRAST: Date: 04/05/2020 INDICATION: Back pain. FINDINGS: The thoracic vertebra maintain normal height and alignment. Vertebral body signal is normal. No edema . Disc spaces are preserved. There is mild degenerative spurring. Small focal protrusion paracentrally on the right at T4-T5 indents the anterior thecal sac on the rig ht without significant cord impingement. Mild disc bulge at T5-T6 flattens the anterior thecal sac slightly more pronounced to the right of mi dline. No other significant disc bulge or protrusion. Thoracic cord signal appears normal. No central canal stenosis. IMPRESSION: 1. Mild degenerative change of thoracic spine. No compression or acute thoracic spine abnormality. 2. Small disc protrusion paracentrally on the right at T4-T5. Mild disc bulge at T5-T6. 3. Incidentally noted is evidence of small left pleural effusion. POS: AGW
[2020-04-05] MEDS: Multivitamin W/ Minerals 1 TAB PO SCH (10:16)
[2020-04-05] MEDS: Calcium Acetate 667 MG CAP PO SCH ×3 (10:17→17:19)
[2020-04-05] MEDS: Ascorbic Acid 500 mg Chewable Tablet PO SCH (10:17)
--- NOTE | 2020-04-05 10:51 | PRG ---
DATE OF SERVICE: 04/05/2020 SUBJECTIVE: A 79-year-old gentleman being seen for end-stage renal disease. The patient denied nausea, vomiting, or chest pain. PHYSICAL EXAMINATION: General: The patient is awake and alert. Vital Signs: Afebrile, pulse 70, breathing at 16, blood pressure 133/66. HEENT: Head normocephalic and atraumatic. Eyes intact, no ulcers. Nose intact, no ulcers. Ears intact, no ulcers. Neck: Supple. No JVD. Chest: Symmetrical and clear. Cardiovascular: Shows S1 and S2, no rub, no murmur. Gastrointestinal: Abdomen is soft, bowel sounds positive. Extremities: Show no edema or ulcers. Skin: Shows no rash or petechiae. Musculoskeletal: Shows no joint swelling or stiffness. Genitourinary: Shows no Brambila or CVA tenderness. Neurologic: Motor intact. Cranial nerves intact. LABORATORY DATA: Labs reviewed. ASSESSMENT AND PLAN: Stage 6 chronic kidney disease, plan dialysis. Hypertension, stable. Anemia, stable. Medication based on GFR appropriate. Job ID: [id number]
--- NOTE | 2020-04-05 13:16 | PDOC.HOSPP ---
- Subjective Encounter Date: 04/05/20 Encounter Time: 12:30 Subjective: had his MRI today, still has lower back pain, no nausea says will work with PT had HD yesterday - Objective Vital Signs & Weight: Vital Signs (12 hours) Temp Pulse Resp BP Pulse Ox 04/05/20 11:26 97.8 F 70 16 125/55 L 99 04/05/20 07:26 97.8 F 83 17 145/69 H 96 Weight Weight 197 lb 11.2 oz I&O: 04/04/20 04/05/20 04/06/20 06:59 06:59 06:59 Intake Total 300 310 Output Total 50 Balance 250 310 Result Diagrams: 04/04/20 03:41 04/04/20 15:07 Hospitalist ROS - Medication Medications: Active Medications Generic Name Dose Route Start Last Admin Trade Name Freq PRN Reason Stop Dose Admin Hydrocodone Bitart/Acetaminophen 1 tab 04/04/20 00:24 04/04/20 17:56 Hydrocodone/Acetaminophen 5/325 Mg Tablet PO 1 tab Q4H PRN Administration Moderate Pain (4-6) Hydrocodone Bitart/Acetaminophen 2 tab 04/04/20 00:24 04/05/20 10:17 Hydrocodone/Acetaminophen 5/325 Mg Tablet PO 2 tab Q4H PRN Administration Severe Pain (7-10) Ascorbic Acid 500 mg 04/04/20 09:00 04/05/20 10:17 Ascorbic Acid 500 Mg Chewable Tablet PO 500 mg DAILY ORESTES Administration Calcium Acetate 667 mg 04/04/20 08:00 04/05/20 12:35 Calcium Acetate 667 Mg Cap PO 667 mg TID- ORESTES Administration Iron/Minerals/Multivitamins 1 tab 04/04/20 09:00 04/05/20 10:16 Multivitamin W/ Minerals 1 Tab PO 1 tab DAILY ORESTES Administration - Exam General Appearance: awake alert Eye: PERRL, anicteric sclera ENT: no oropharyngeal lesions, moist mucosa Neck: supple, no JVD Heart: RRR, no murmur Respiratory: no wheezes, no rales Gastrointestinal: soft, non-tender, non-distended, normal bowel sounds Extremities: no cyanosis, 2+ LE edema Neurological: cranial nerve grossly intact, no focal deficits Psychiatric: normal affect, A&O x 3 Hosp A/P (1) Frequent falls Code(s): R29.6 - REPEATED FALLS Status: Acute (2) Lumbar back pain with radiculopathy affecting right lower extremity Code(s): M54.16 - RADICULOPATHY, LUMBAR REGION Status: Suspected (3) Physical deconditioning Code(s): R53.81 - OTHER MALAISE Status: Acute (4) Chronic back pain Code(s): M54.9 - DORSALGIA, UNSPECIFIED; G89.29 - OTHER CHRONIC PAIN Status: Chronic Qualifiers: Back pain location: low back pain (5) ESRD on hemodialysis Code(s): N18.6 - END STAGE RENAL DISEASE; Z99.2 - DEPENDENCE ON RENAL DIALYSIS Status: Chronic (6) Essential hypertension Code(s): I10 - ESSENTIAL (PRIMARY) HYPERTENSION Status: Chronic (7) Anemia due to chronic kidney disease Code(s): N18.9 - CHRONIC KIDNEY DISEASE, UNSPECIFIED; D63.1 - ANEMIA IN CHRONIC KIDNEY DISEASE Status: Chronic Qualifiers: Chronic kidney disease stage: on chronic dialysis Qualified Code(s): N18.6 - End stage renal disease; D63.1 - Anemia in chronic kidney disease; Z99.2 - Dependence on renal dialysis - Plan hemo/neurostable MRI thoracic and lumbar spine results noted nsx is not planning on operating, is for outpt f/u per staff. scar ramireze to lower extremities esrd, HD per nephr advice may dc to rehab/swing bed if accepted PT to mobilize as tolerated has had progressive deconditioning to the point he cannot ambulate and his cant help him at home, has had multiple falls as well switched to inpatient status sec to above
[2020-04-06] MEDS: HYDROcodone/Acetaminophen 5/325 mg Tablet PO PRN ×2 (04:41→09:48)
[2020-04-06] MEDS ORDERED: Folic Acid 1 MG TAB PO SCH (09:00)
[2020-04-06] MEDS ORDERED: Lidocaine 5% Patch TD SCH (09:00)
[2020-04-06] MEDS ORDERED: Multivit, Therapeutic 1 TAB PO SCH (09:00)
[2020-04-06] MEDS ORDERED: Cyanocobalamin (Vitamin B-12) 1,000 MCG TAB PO SCH (09:00)
[2020-04-06] MEDS: Calcium Acetate 667 MG CAP PO SCH ×3 (09:48→18:24)
--- NOTE | 2020-04-06 10:18 | PRG ---
DATE OF SERVICE: 04/06/2020 SUBJECTIVE: This is a 79-year-old male being seen for end-stage renal disease. The patient denied nausea or chest pain. PHYSICAL EXAMINATION: GENERAL: The patient is awake, alert. VITAL SIGNS: Pulse 77, breathing 16, blood pressure 138/67. HEENT: Head normocephalic and atraumatic. Eyes intact, no ulcers. Nose intact, no ulcers. Ears intact, no ulcers. NECK: Supple. No JVD. CHEST: Symmetrical and clear. CARDIOVASCULAR: Shows S1 and S2, no rub, no murmur. GASTROINTESTINAL: Abdomen is soft, bowel sounds positive. EXTREMITIES: Show no edema or ulcers. SKIN: Shows no rash or petechiae. MUSCULOSKELETAL: Shows no joint swelling or stiffness. GENITOURINARY: Shows no Brambila or CVA tenderness. NEUROLOGIC: Motor intact. Cranial nerves intact. LABORATORY DATA: Reviewed. ASSESSMENT: Chronic kidney disease stage 6. PLAN: Dialysis. Hypertension, anemia stable. Medication based on GFR appropriate. Job ID: [id number]
[2020-04-06] MEDS: Ascorbic Acid 500 mg Chewable Tablet PO SCH (13:01)
[2020-04-06 18:04] VITALS: BP 151/77; TEMP 97.9
--- NOTE | 2020-04-06 18:12 | PDOC.DS.DS ---
Provider - Provider Date of Admission: 04/05/20 07:05 Date of Discharge: 04/06/20 Admitting Provider: Melanie Pastor MD Consultations: Nephrology Primary Care Physician: Sinan Odonnell MD Course - Hospital Course Hospital Course: Patient is a 79-year-old male with end-stage renal disease on hemodialysis and chronic low back pain presented to the emergency room on 04/03 after an episode of mechanical fall. He was ambulating with his rolling walker when he his knees "gave out". He also reported that he has a history of several falls. He andrew pimentel follows Dr. Purvis. Please refer to the history and physical for further details. The patient was admitted to the hospital with a diagnosis of generalized weakness with recurrent falls. Knee x-rays were negative for acute fractures or dislocation. CT abdomen and pelvis showed hydronephrosis and hydroureter with wall thickening of the nondistended urinary bladder. Nonemergent urology consu ltation was recommended. Patient was evaluated by physical therapy who recommended inpatient rehabi litation. Patient is at high risk of fall and was extensively counseled to use walker all the time. He was also advised to call for assistance prior to ambulation. He was started on lidocaine patch with good improvement in his symptoms. He underwent MRI of the thoracic spine that showed mild degenerative change of the thoracic spine without any fractures. There was a small disc protrusion on the right at T4-T5 with a mild disc bulge at T5-T6. MRI of the lumbar spine showed multilevel degenerative disc changes with central canal and foraminal stenosis at multiple level. Neurosurgery recommended outpatient follow-up. He also had electrolyte abnormality which were replaced. He also underwent hemodialysis per nephrology. Vitamin B12 and folic acid were normal last year. Final diagnosis: Generalized weakness with frequent falls Chronic low back pain with lumbar radiculopathy Physical deconditioning End-stage renal disease on hemodialysis Hypertension Anemia due to chronic renal insufficiency Hypokalemia Hydronephrosis/hydroureterurology follow-up as outpatient recommended Resuscitation Status: 04/04/20 00:24 Resuscitation Status Routine Co-Sign Provider: Resuscitation Status: FULL: Full Resuscitation Discussed with: patient - Labs Lab Results: 04/04/20 03:41 04/04/20 15:07 - Physical Exam Vitals: Vital Signs (12 hours) Temp Pulse Resp BP Pulse Ox 04/06/20 18:03 97.9 F 76 16 151/77 H 98 04/06/20 11:32 98.4 F 71 20 149/75 H 97 04/06/20 07:26 97.7 F 72 17 141/69 H 96 Weight Weight 197 lb 11.2 oz Physical Exam: The patient was seen and examined on the day of discharge. Plan - Discharge Medications Home Medications: Medication Instructions Recorded Confirmed Type Ascorbic Acid [Vitamin C] 500 mg PO DAILY 06/14/17 04/04/20 History Multivit-Mins/Iron/Folic/Lycop 1 each PO DAILY 06/14/17 04/04/20 History [Centrum Men's Tablet] Acetaminophen [Tylenol Extra 1,000 mg PO Q6HR PRN 06/15/18 04/04/20 History Strength] Calcium Acetate [Phoslo] 1 cap PO TID-WM 06/15/18 04/04/20 History Acetaminophen [Tylenol Regular 650 mg PO Q4H PRN tab 04/06/20 Rx Strength] Cyanocobalamin (Vitamin B-12) 1,000 mcg PO DAILY tab 04/06/20 Rx [Vitamin B-12] Folic Acid [Folvite] 1 mg PO DAILY tab 04/06/20 Rx Lidocaine 5% Patch [Lidoderm 5% 2 patch TD DAILY patch 04/06/20 Rx Patch] Lidocaine Patch Removal 2 each TOP HS each 04/06/20 Rx Multivit, Therapeutic [Theragran] 1 tab PO DAILY tab 04/06/20 Rx Allergies: aspirin Allergy (Verified 11/21/19 01:01) itching diphenhydramine [From Benadryl] Adverse Reaction (Verified 11/21/19 01:01) makes me very itchy - Discharge Instructions Discharge Instructions:: Fall precautions Follow-up with urology as outpatient - Follow up Plan Referrals: [facility], [facility] [Other] Allan Anderson MD [Active] - 14 Days Sinan Odonnell MD [Primary Care Provider] - 7 Days Ran Purvis MD [Active] - 7 Days Disposition: REHABILITATION INPATIENT Quality - Care Measures CORE MEASURES:: N/A
[2020-04-06] MEDS ORDERED: Lidocaine Patch Removal TOP SCH (21:00)
== END 2020-04-06 19:30 | DRG 551 ==
LOC: ERS 19:17 → ERHOLD 23:00 → 2SE 04-04 14:17 → OBSVTOIN 04-05 07:05
PROVIDERS: ADMIT Internal Medicine; ATTEND Internal Medicine
PROC: 5A1D70Z Performance of Urinary Filtration, Intermittent, Less than 6 Hours Per Day (ICD-10-PCS; principal; 2020-04-04)
DX: M51.16 Intervertebral disc disorders with radiculopathy, lumbar region (principal); N18.6 End stage renal disease; N13.4 Hydroureter; I12.0 Hypertensive chronic kidney disease with stage 5 chronic kidney disease or end stage renal disease; N13.30 Unspecified hydronephrosis; Z20.828 Contact with and (suspected) exposure to other viral communicable diseases; G89.29 Other chronic pain; D63.1 Anemia in chronic kidney disease; E87.6 Hypokalemia; R29.6 Repeated falls; M48.04 Spinal stenosis, thoracic region; M51.24 Other intervertebral disc displacement, thoracic region; Z99.2 Dependence on renal dialysis; Z91.81 History of falling; Z79.899 Other long term (current) drug therapy
CPT/HCPCS: 36415; 72146; 72148; 74176; 80048; 83735; 85025; 87635; G0378; U0003

== ENCOUNTER 2020-06-04 23:34 | Inpatient (IN) | payer MEDICARE ==
[2020-06-05 00:37] LABS: Hemoglobin 10.1 g/dL (14.0-18.0); Mean Corpuscular HGB CONC 34.2 g/dL (32.0-36.0); Mean Corpuscular Hemoglobin 37.6 pg (27.0-31.0); Mean Platelet Volume 6.2 fL (7.4-10.4); Platelet Count 469 thou/uL (130-400); RBC Distribution Width 13.2 % (11.5-14.5); Red Blood Cell (RBC) Count 2.68 mill/uL (4.70-6.10); White Blood Cell (WBC) Count 8.4 thou/uL (4.8-10.8)
[2020-06-05 00:52] LABS: #Basophils 0.1 thou/uL (0.0-0.2); #Eosinphils 0.2 thou/uL (0.0-0.7); #Lymphocytes 2.3 thou/uL (1.20-3.40); #Monocytes 0.7 thou/uL (0.11-0.59); %Basophils 1.6 % (0.0-1.0); %Eosinophils 2.5 % (0.0-10.0); %Lymphocytes 27.4 % (21.0-51.0); %Monocytes 8.6 % (0.0-10.0); %Neutrophils 59.9 % (42.0-75.0); MDiff Complete? YES; Macrocytosis SLIGHT = 6-15 cells (100X) (0-5/hpf)
[2020-06-05 01:05] LABS: ALT (SGPT) 18 U/L (8-55); AST (SGOT) 24 U/L (5-34); Albumin 3.3 g/dL (3.4-4.8); Alkaline Phosphatase 66 U/L (40-110); Anion Gap 21 mmol/L (10-20); BUN (Urea Nitrogen) 50 mg/dL (8.4-25.7); Bilirubin, Total 0.4 mg/dL (0.2-1.2); Calc. Creatinine Clearance 0 mL/min (70-130); Calcium 8.7 mg/dL (7.8-10.44); Carbon Dioxide 27 mmol/L (23-31); Chloride 97 mmol/L (98-107); Globulin 2.8 g/dL (2.4-3.5); Glucose 73 mg/dL (83-110); Protein, Total 6.1 g/dL (5.8-8.1); Sodium 140 mmol/L (136-145)
[2020-06-05 01:34] LABS: CKMB 10.6 ng/mL (0-6.6)
--- NOTE | 2020-06-05 06:08 | PDOC.HHP ---
Hospitalist HPI Altered mental state History of Present Illness: This is a 80-year-old male patient with a history of ESRD on dialysis, arthritis who was brought in by EMS on account of altered mental status. Apparently patient was supposed to have her dialysis earlier in the day yesterday however he missed it. This apparently because he has been progressively been altered through the day. His activated EMS. On EMS evaluation he was altered and weak blood pressure 171/89, heart rate 102, saturating 99% on room air. At the time he was alert and oriented x1-3. On arrival BP was 150/105, pulse 90 temperature 98.3/95% on room air however he was progressively becoming more confused. His labs showed anemia of 10.1 plat elet count of 469. Also had BUN at 50 and creatinine at 5.79. Troponin was elevated at 0.053 and BNP was 3240. Head CT did not reveal any acute intracranial events. Chest x-ray showed no significant infiltrates. Hospitalist team was consulted to admit on account of altered mental status of unclear etiology Allergies/Adverse Reactions: Allergy/AdvReac Type Severity Reaction Status Date / Time aspirin Allergy itching Verified 11/21/19 01:01 diphenhydramine AdvReac Verified 11/21/19 01:01 [From Benadryl] Home Medications: Medication Instructions Recorded Confirmed Type Ascorbic Acid [Vitamin C] 500 mg PO DAILY 06/14/17 06/05/20 History Multivit-Mins/Iron/Folic/Lycop 1 each PO DAILY 06/14/17 06/05/20 History [Centrum Men's Tablet] Acetaminophen [Tylenol Extra 1,000 mg PO Q6HR PRN 06/15/18 06/05/20 History Strength] Calcium Acetate [Phoslo] 1 cap PO TID-WM 06/15/18 06/05/20 History Folic Acid [Folvite] 1 mg PO DAILY tab 04/06/20 06/05/20 Rx Cider Vinegar [Apple Cider Vinegar] 300 mg PO DAILY 06/05/20 06/05/20 History Potassium Gluconate [Potassium] 600 mg PO DAILY 06/05/20 06/05/20 History traMADol HCl [Ultram] 50 mg PO Q6HR PRN 06/06/20 06/06/20 History Past History: PMHx:ESRD PSHx:Back surgery, eye surgery FHx:None of significance Social:Social drinker, No smoking or illicit drug use Hospitalist HPI ROS ROS unobtainable: due to mental status Hospitalist Exam General - other findings: Patient in bed, generally confused occasionally hallucinates Eye: anicteric sclera ENT: normocephalic atraumatic Heart: RRR, no murmur, no gallops, no rubs Respiratory: CTAB, no wheezes, no rales, no ronchi Gastrointestinal: soft, non-tender, non-distended, normal bowel sounds Extremities: no cyanosis, no clubbing, 1+ LE edema Extremities - other findings: Bilateral stasis dermatitis in both shins Neurological: cranial nerve grossly intact, no focal deficits Psychiatric: oriented to person Psychiatric - other findings: Generally confused and intermittently hallucinating Hospitalist Results Result Diagrams: 06/08/20 11:56 06/10/20 04:44 Lab results: Laboratory Last Values WBC 8.4 thou/uL (4.8-10.8) 06/05/20 00:19 RBC 2.68 mill/uL (4.70-6.10) L 06/05/20 00:19 Hgb 10.1 g/dL (14.0-18.0) L 06/05/20 00:19 Hct 29.4 % (42.0-52.0) L 06/05/20 00:19 MCV 110.0 fL (78.0-98.0) H 06/05/20 00:19 MCH 37.6 pg (27.0-31.0) H 06/05/20 00:19 MCHC 34.2 g/dL (32.0-36.0) 06/05/20 00:19 RDW 13.2 % (11.5-14.5) 06/05/20 00:19 Plt Count 469 thou/uL (130-400) H 06/05/20 00:19 MPV 6.2 fL (7.4-10.4) L 06/05/20 00:19 Neutrophils % 59.9 % (42.0-75.0) 06/05/20 00:19 Neutrophils % (Manual) Not Reportable 06/05/20 00:19 Lymphocytes % 27.4 % (21.0-51.0) 06/05/20 00:19 Monocytes % 8.6 % (0.0-10.0) 06/05/20 00:19 Eosinophils % 2.5 % (0.0-10.0) 06/05/20 00:19 Basophils % 1.6 % (0.0-1.0) H 06/05/20 00:19 Neutrophils # 5.0 thou/uL (1.40-6.50) 06/05/20 00:19 Lymphocytes # 2.3 thou/uL (1.20-3.40) 06/05/20 00:19 Monocytes # 0.7 thou/uL (0.11-0.59) H 06/05/20 00:19 Eosinophils # 0.2 thou/uL (0.0-0.7) 06/05/20 00:19 Basophils # 0.1 thou/uL (0.0-0.2) 06/05/20 00:19 Macrocytosis SLIGHT = 6-15 cells (100X) (0-5/hpf) 06/05/20 00:19 Sodium 140 mmol/L (136-145) 06/05/20 00:19 Potassium 5.0 mmol/L (3.5-5.1) 06/05/20 00:19 Chloride 97 mmol/L (98-107) L 06/05/20 00:19 Carbon Dioxide 27 mmol/L (23-31) 06/05/20 00:19 Anion Gap 21 mmol/L (10-20) H 06/05/20 00:19 BUN 50 mg/dL (8.4-25.7) H 06/05/20 00:19 Creatinine 5.75 mg/dL (0.7-1.3) H 06/05/20 00:19 Estimated GFR (MDRD) 10 06/05/20 00:19 Glucose 73 mg/dL (83-110) L 06/05/20 00:19 Calcium 8.7 mg/dL (7.8-10.44) 06/05/20 00:19 Total Bilirubin 0.4 mg/dL (0.2-1.2) 06/05/20 00:19 AST 24 U/L (5-34) 06/05/20 00:19 ALT 18 U/L (8-55) 06/05/20 00:19 Alkaline Phosphatase 66 U/L (40-110) 06/05/20 00:19 CK-MB (CK-2) 10.6 ng/mL (0-6.6) H* 06/05/20 00:20 Troponin I 0.060 ng/mL (< 0.028) H 06/05/20 05:19 B-Natriuretic Peptide 3240.8 pg/mL (0-100) H 06/05/20 00:20 Serum Total Protein 6.1 g/dL (5.8-8.1) 06/05/20 00:19 Albumin 3.3 g/dL (3.4-4.8) L 06/05/20 00:19 Globulin 2.8 g/dL (2.4-3.5) 06/05/20 00:19 Albumin/Globulin Ratio 1.2 g/dL (1.2-2.2) 06/05/20 00:19 Hospitalist H&P A/P Plan: This is a 80-year-old male patient with a history of arthritis and ESRD on dialysis who was brought in on account of altered mental status with unclear etiology. Acute encephalopathy Possible of renal originuremia. Cannot rule out sepsis. Consult nephrology, obtain blood cultures and cover of antibiotics for nowVanco and Zosyn. Closely monitor Elevated troponin Troponin is 0.053 This is probably likely to ESRD We will trend Chronic stasis dermatitis Wound care evaluation in a.m. Possible heart failure BNP 3250 This could be due to ESRD We will get dialysis. Anemia This is mild at 10.1 Likely secondary to ESRD Continue monitoring. CODE STATUSunknown at the moment DVT prophylaxisheparin
[2020-06-05] MEDS ORDERED: Vancomycin HCl 500 MG in Sodium Chloride 0.9% 100 ML IVPB SCH (06:30)
[2020-06-05] MEDS ORDERED: Vancomycin 1 GM in Premix Bag 1 BAG IVPB SCH ×2 (06:30→09:00)
[2020-06-05] MEDS ORDERED: Vancomycin HCl 750 MG in Sodium Chloride 0.9% 250 ML 250 ML IVPB SCH (06:30)
[2020-06-05] MEDS ORDERED: HOLD VANCOMYCIN FOR LEVEL >20 FS SCH (06:30)
[2020-06-05] MEDS ORDERED: Vancomycin HCl 1.25 GM in Sodium Chloride 0.9% 250 ML 250 ML IVPB SCH (06:30)
[2020-06-05] MEDS ORDERED: VANCOMYCIN 1.75 GM/350 ML BAG 1.75 GM in Premix Bag 1 BAG IVPB SCH (06:45)
[2020-06-05] MEDS ORDERED: VANC/ZOSYN IVPB PRN (07:02)
--- NOTE | 2020-06-05 08:02 | CT ---
PRELIMINARY REPORT/[facility]/EMERGENCY AFTER HOURS PROCEDURE EXAM: CT Head Without Intravenous Contrast. CLINICAL HISTORY: Patient is a 80 y/o male with a PMH notable for dialysis-dependent ESRD who presents to the ER via EMS for concern of AMS. TECHNIQUE: Axial computed tomography images of the head/brain without intravenous contrast. COMPARISON: None provided. FINDINGS: BRAIN: No acute intraparenchymal hemorrhage. No mass lesion. No CT evidence for acute territorial infarct. N o midline shift or extra-axial collection. Old lacunar infarct in the left basal ganglia extending into the left navarrete radiata. VENTRICLES: No hydrocephalus. ORBITS: The orbits are unremarkable. SINUSES AND MASTOIDS: The paranasal sinuses and mastoid air cells are clear. SOFT TISSUES: No significant facial or scalp soft tissue swelling evident. No radiopaque foreign body is seen. BONES: No acute skull fracture. IMPRESSION: No acute intracranial abnormality. ELECTRONICALLY SIGNED BY: Jett Wagner M.D. Jun 05, 2020 2:45:41 AM FINANCIAL SUPERVISOR This report is intended for review by the ordering physician only, in accordance of law. If you recei ve this report in error, please call [facility] at [phone]. FINAL REPORT Exam: Head CT without contrast HISTORY: Dialysis dependent patient. End-stage renal disease. Altered mental status COMPARISON: 02/19/2020 FINDINGS: Hemorrhage: No intraparenchymal hemorrhage or extra-axial hematoma. Brain parenchyma: Cortical rivrea-white matter differentiation is preserved. No mass effect or midline shift. Basilar cisterns are patent.Stable chronic small vessel ischemic changes of the white matter Ventricular system: Ventricles and sulci are patent and symmetric. Calvarium: Intact. Sinuses and mastoid air cells: Adequate aeration. IMPRESSION: 1. This report is in agreement with initial report by [facility]. 2. No acute intracranial process. Transcribed Date/Time: 06/05/2020 9:00 AM
[2020-06-05 08:20] LABS: Troponin I 0.057 ng/mL (< 0.028)
--- NOTE | 2020-06-05 08:42 | RAD ---
Portable frontal chest radiograph: 06/05/2020 COMPARISON: 11/20/2019 HISTORY: Altered mental status FINDINGS: Stable prominence of the cardiac silhouette. Mild pulmonary vascular prominence noted with no pneumothorax or pleural fluid. No focal consolidation or alveolar edema. Mild linear density in the left base suggests scar and/or volume loss. IMPRESSION: No focal consolidation or alveolar edema.
[2020-06-05] MEDS ORDERED: Piperacillin/Tazobactam 2.25 GM VIAL ONE (11:03)
[2020-06-05] MEDS: Piperacillin/Tazobactam 2.25 GM in Sodium Chloride 0.9% 100 ML IVPB SCH ×2 (11:58→18:18)
[2020-06-05] MEDS: Heparin 5,000 UNITS/ML VIAL SC SCH ×2 (12:01→15:21)
[2020-06-05] MEDS ORDERED: Acetaminophen 325 MG TAB ONE (14:15)
--- NOTE | 2020-06-05 15:46 | CON ---
DATE OF CONSULTATION: 06/05/2020 CONSULTING PHYSICIAN: Dr. Summers. REASON FOR CONSULT: End-stage renal disease evaluation and care. REASON FOR ADMISSION: Altered mentation. HISTORY OF PRESENT ILLNESS: This is a 80-year-old male with history of end-stage renal disease, hypertension, peripheral vascular disease, came to the hospital with altered mentation and the patient missed dialysis and was found to have potassium of 5.6 and BUN of 50. Nephrology consulted for possible uremic encephalopathy. The patient still remains altered. No nausea or vomiting. No fever or chills. PAST MEDICAL HISTORY: Positive for end-stage renal disease, hypertension, hyperlipidemia, peripheral vascular disease. PAST SURGICAL HISTORY: Dialysis access placement. HOME MEDICATIONS: Reviewed. ALLERGIES: ASPIRIN AND DIPHENHYDRAMINE. SOCIAL HISTORY: No smoking, alcohol, or illicit drugs. FAMILY HISTORY: No history of kidney disease. REVIEW OF SYSTEMS: Could not be obtained due to altered mental status. PHYSICAL EXAMINATION: GENERAL: Reveals an elderly male, in no apparent distress. VITAL SIGNS: Reviewed. HEENT: Atraumatic and normocephalic. Oral mucosa is moist. NECK: Supple. CV: S1 and S2, rate and rhythm regular. RESPIRATORY: Clear. GI: Abdomen is soft. MUSCULOSKELETAL: 1+ edema. DERMATOLOGIC: No skin rash. NEUROLOGIC: Confused. LABORATORY DATA: Hemoglobin is 10.1. Potassium 5.0, BUN is 50, creatinine is 5.05. ASSESSMENT AND PLAN: 1. End-stage renal disease. Plan to have dialysis. 2. Edema, controlled. 3. Hypertension. 4. Anemia of chronic disease. Plan to have dialysis. Dialysis nurse notified. We will follow. Job ID: [id number]
[2020-06-05] MEDS ORDERED: Lorazepam 2 MG/ML VIAL ONE (15:52)
[2020-06-05] MEDS ORDERED: Lorazepam 2 MG/ML VIAL SLOW IVP PRN (16:57)
[2020-06-05 17:10] LABS: SARS-CoV-2 PCR by NAA Not Detected (NotDetected)
--- NOTE | 2020-06-05 17:57 | PDOC.BPN ---
- Brief Progress Note Encounter Date: 06/05/20 Encounter Time: 17:56 This patient was seen and evaluated today. He is a 80-year-old who was admitted with confusion. He is a dialysis patient reportedly he missed a session of dialysis I suspect due to the inclement weather. He became confused prompting family to bring him into the hospital. The patient did not know why he is in the hospital when I saw him. He had CT of the head that did not show any acute finding. He is scheduled for dialysis in the nephrology department was asked to evaluate him.
[2020-06-05 19:54] VITALS: BMI 27.5
[2020-06-06 00:40] LABS: HBSAg Index 0.34 S/CO (0-0.99); Hep B Surf Ag Non-Reactive S/CO (NonReactive)
[2020-06-06] MEDS: traMADol HCl 50 MG TAB PO PRN ×3 (02:09→23:29)
[2020-06-06] MEDS: Heparin 5,000 UNITS/ML VIAL SC SCH ×4 (03:32→20:44)
[2020-06-06 05:22] LABS: #Basophils 0.1 thou/uL (0.0-0.2); #Eosinphils 0.1 thou/uL (0.0-0.7); #Lymphocytes 1.6 thou/uL (1.20-3.40); #Monocytes 0.6 thou/uL (0.11-0.59); %Eosinophils 1.5 % (0.0-10.0); %Lymphocytes 22.2 % (21.0-51.0); %Neutrophils 67.4 % (42.0-75.0); Hemoglobin 9.9 g/dL (14.0-18.0); Mean Corpuscular HGB CONC 31.8 g/dL (32.0-36.0); Mean Corpuscular Hemoglobin 34.5 pg (27.0-31.0); Mean Platelet Volume 6.5 fL (7.4-10.4); Platelet Count 438 thou/uL (130-400); RBC Distribution Width 13.8 % (11.5-14.5); Red Blood Cell (RBC) Count 2.87 mill/uL (4.70-6.10); White Blood Cell (WBC) Count 7.4 thou/uL (4.8-10.8)
[2020-06-06 05:38] LABS: Anion Gap 20 mmol/L (10-20); BUN (Urea Nitrogen) 31 mg/dL (8.4-25.7); Calc. Creatinine Clearance 19 mL/min (70-130); Calcium 8.6 mg/dL (7.8-10.44); Carbon Dioxide 26 mmol/L (23-31); Chloride 99 mmol/L (98-107); Sodium 141 mmol/L (136-145)
[2020-06-06 05:45] LABS: Glucose 55 mg/dL (83-110)
[2020-06-06] MEDS: Piperacillin/Tazobactam 2.25 GM in Sodium Chloride 0.9% 100 ML IVPB SCH ×2 (05:53→17:54)
[2020-06-06] MEDS ORDERED: Dextrose 50% Abboject 50 ML SYRINGE SLOW IVP SCH (07:00)
[2020-06-06 10:39] LABS: Vancomycin, Random 13.7 ug/mL (See Comment)
--- NOTE | 2020-06-06 14:33 | PRG ---
DATE OF SERVICE: 06/06/2020 SUBJECTIVE: The patient is seen during dialysis and was confused. This morning, his blood sugar was also low based on the dialysis nurse. OBJECTIVE: GENERAL: This is an elderly male, somnolent. VITAL SIGNS: Temperature 97.1, pulse 85, respiratory rate 18, blood pressure 185/74. HEENT: Atraumatic, normocephalic. NECK: Supple. CV: S1 and S2 heard. RESPIRATORY: Clear. GI: Abdomen is soft. MUSCULOSKELETAL: edema. DERMATOLOGIC: No skin rash. NEUROLOGIC: Confused and nonverbal. LABORATORY DATA: Hemoglobin is 9.9. Potassium 4.0, BUN is 31, and creatinine is 4.1. ASSESSMENT AND PLAN: 1. End-stage renal disease. Continue dialysis as tolerated. The patient is seen during dialysis with altered mentation. We will continue to follow. 2. Edema. 3. Hypertension. 4. Anemia of chronic disease. Plan to continue on dialysis as tolerated. Continue supportive care. The patient is seen during dialysis today. Job ID: [id number]
[2020-06-06] MEDS: Dextrose 10% in Water 1,000 ML IV SCH (14:52)
--- NOTE | 2020-06-06 16:24 | PDOC.HOSPP ---
- Subjective Encounter Date: 06/06/20 Encounter Time: 16:24 Subjective: Patient remains confused and disoriented for the most part. I called and spoke to the patient's who confirmed that that was the patient's baseline for the most part. However this tends to worsen whenever he misses dialysis. The patient has been refusing to eat per nursing staff. We will go ahead and start him on a D10 infusion. - Objective Vital Signs & Weight: Vital Signs (12 hours) Temp Pulse Resp BP Pulse Ox 06/06/20 14:55 146/68 H 06/06/20 13:47 97.1 F L 85 15 185/74 H 95 06/06/20 08:27 97.9 F 83 18 164/82 H 93 L 06/06/20 04:54 98.2 F 81 16 139/65 95 Weight Admit Weight 203 lb Weight 203 lb I&O: 06/05/20 06/06/20 06/07/20 06:59 06:59 06:59 Intake Total 195 160 Output Total 3000 Balance 195 -2840 Result Diagrams: 06/06/20 04:48 06/06/20 04:48 Additional Labs: Accuchecks 06/06/20 06/06/20 06/06/20 14:04 11:30 07:41 POC Glucose 70 73 124 H Hospitalist ROS - Medication Medications: Active Medications Generic Name Dose Route Start Last Admin Trade Name Freq PRN Reason Stop Dose Admin Heparin Sodium (Porcine) 5,000 units 06/05/20 09:00 06/06/20 09:01 Heparin 5,000 Units/Ml Vial SC 5,000 units TID ORESTES Administration Piperacillin Sod/Tazobactam 100 mls @ 200 mls/hr 06/05/20 06:00 06/06/20 05:53 Sod 2.25 gm/ Sodium Chloride IVPB 100 mls 0600,1800 ORESTES Administration Vancomycin HCl 750 mg/ Sodium 250 mls @ 250 mls/hr 06/05/20 06:30 06/06/20 12:03 Chloride IVPB 250 mls WILLCALL ORESTES Administration Dextrose/Water 1,000 mls @ 75 mls/hr 06/06/20 14:30 06/06/20 14:52 Dextrose 10% In Water IV 1,000 mls .[id number] ORESTES Administration Lorazepam 0.5 mg 06/05/20 16:57 06/05/20 18:35 Lorazepam 2 Mg/Ml Vial SLOW IVP 0.5 mg Q6H PRN Administration Anxiety/Agitation Sodium Chloride 10 ml 06/06/20 09:00 06/06/20 09:01 Flush - Normal Saline 10 Ml Syringe IVF 10 ml Q12HR ORESTES Administration Tramadol HCl 50 mg 06/06/20 01:58 06/06/20 02:09 Tramadol Hcl 50 Mg Tab PO 50 mg Q6HR PRN Administration Pain Hospitalist Exam Vitals: Vital Signs (12 hours) Temp Pulse Resp BP Pulse Ox 06/06/20 14:55 146/68 H 06/06/20 13:47 97.1 F L 85 15 185/74 H 95 06/06/20 08:27 97.9 F 83 18 164/82 H 93 L 06/06/20 04:54 98.2 F 81 16 139/65 95 Weight Admit Weight 203 lb Weight 203 lb
[2020-06-07] MEDS: Dextrose 10% in Water 1,000 ML IV SCH ×2 (05:06→06:35)
[2020-06-07] MEDS: Piperacillin/Tazobactam 2.25 GM in Sodium Chloride 0.9% 100 ML IVPB SCH (06:00)
[2020-06-07] MEDS: traMADol HCl 50 MG TAB PO PRN ×3 (06:00→19:40)
[2020-06-07] MEDS: Heparin 5,000 UNITS/ML VIAL SC SCH ×3 (09:33→19:40)
[2020-06-07 09:53] LABS: Vancomycin, Random 12.9 ug/mL (See Comment)
--- NOTE | 2020-06-07 12:32 | PRG ---
DATE OF SERVICE: 06/07/2020 SUBJECTIVE: Patient was seen and examined at bedside and overnight events noted. Patient denies any shortness of breath or chest pain or palpitation. No history of nausea or vomiting or diarrhea or fever or chills or cramps. OBJECTIVE: GENERAL: This is a well-built male, in no apparent distress. VITAL SIGNS: Temperature 98.1. Heart Rate 71. Respiratory rate 16. Blood pressure 140/66. HEENT: Atraumatic, normocephalic. Oral mucosa is moist. NECK: Supple. CARDIOVASCULAR: S1, S2 heard. Rate and rhythm regular. RESPIRATORY: Clear to auscultation. GASTROINTESTINAL: Abdomen is soft. MUSCULOSKELETAL: No tenderness. No edema. DERMATOLOGIC: No skin rash. NEUROLOGIC: Alert and awake and oriented x3. No focal neurologic deficits. Moving all the extremities. PSYCHIATRIC: Mood and affect normal. LABORATORY DATA: Not done today. ASSESSMENT AND PLAN: 1. End-stage renal disease. Continue dialysis Wednesday, , and Wednesday as tolerated. 2. Edema. 3. Hypertension. 4. Anemia of chronic disease. 5. Altered mentation, better. Continue on dialysis as tolerated. Job ID: [id number]
--- NOTE | 2020-06-07 17:04 | PDOC.HOSPP ---
- Subjective Encounter Date: 06/07/20 Encounter Time: 17:02 Subjective: The patient today seems a lot better than he was yesterday. He is awake and alert and is not in any distress. This is a 80-year-old who probably has some underlying memory issue was admitted to the hospital with more confusion. It appears that he had missed dialysis due to the inclement weather. However since being admitted he has had his dialysis and appears to be doing much better. Family wants him to go to a half-way facility prior to discharge home. Case management are notified and they are working on placement. He can discharge whenever he is approved. - Objective Vital Signs & Weight: Vital Signs (12 hours) Temp Pulse Pulse Resp BP BP Pulse Ox 06/07/20 16:00 97.8 F 77 18 125/88 99 06/07/20 14:55 81 125/88 06/07/20 11:48 98.1 F 71 16 140/66 96 06/07/20 07:57 97.7 F 71 18 164/74 H 98 Weight Admit Weight 203 lb Weight 203 lb I&O: 06/06/20 06/07/20 06/08/20 06:59 06:59 06:59 Intake Total 195 1647 600 Output Total 3000 Balance 195 -1353 600 Result Diagrams: 06/06/20 04:48 06/06/20 04:48 Radiology Reviewed by me: Yes EKG Reviewed by me: Yes Hospitalist ROS - Review of Systems Constitutional: reports: weakness - Medication Medications: Active Medications Generic Name Dose Route Start Last Admin Trade Name Freq PRN Reason Stop Dose Admin Heparin Sodium (Porcine) 5,000 units 06/05/20 09:00 06/07/20 14:54 Heparin 5,000 Units/Ml Vial SC 5,000 units TID ORESTES Administration Lorazepam 0.5 mg 06/05/20 16:57 06/05/20 18:35 Lorazepam 2 Mg/Ml Vial SLOW IVP 0.5 mg Q6H PRN Administration Anxiety/Agitation Sodium Chloride 10 ml 06/06/20 09:00 06/07/20 09:33 Flush - Normal Saline 10 Ml Syringe IVF Not Given Q12HR ORESTES Tramadol HCl 50 mg 06/06/20 01:58 06/07/20 13:05 Tramadol Hcl 50 Mg Tab PO 50 mg Q6HR PRN Administration Pain Hospitalist Exam Vitals: Vital Signs (12 hours) Temp Pulse Pulse Resp BP BP Pulse Ox 06/07/20 16:00 97.8 F 77 18 125/88 99 06/07/20 14:55 81 125/88 06/07/20 11:48 98.1 F 71 16 140/66 96 06/07/20 07:57 97.7 F 71 18 164/74 H 98 Weight Admit Weight 203 lb Weight 203 lb General Appearance: NAD Eye: PERRL ENT: normocephalic atraumatic, no oropharyngeal lesions Neck: supple, symmetric, no JVD, no thyromegaly Heart: RRR, no murmur, no gallops Respiratory: CTAB, no wheezes, no rales Gastrointestinal: soft, non-tender, non-distended, normal bowel sounds Neurological: cranial nerve grossly intact Psychiatric: normal affect, normal behavior, A&O x 3 Hosp A/P (1) AMS (altered mental status) Code(s): R41.82 - ALTERED MENTAL STATUS, UNSPECIFIED Status: Acute (2) Anemia due to chronic kidney disease Code(s): N18.9 - CHRONIC KIDNEY DISEASE, UNSPECIFIED; D63.1 - ANEMIA IN CHRONIC KIDNEY DISEASE Status: Chronic Qualifiers: Chronic kidney disease stage: on chronic dialysis Qualified Code(s): N18.6 - End stage renal disease; D63.1 - Anemia in chronic kidney disease; Z99.2 - Dependence on renal dialysis (3) End-stage renal disease (ESRD) Code(s): N18.6 - END STAGE RENAL DISEASE Status: Chronic - Plan PT/OT, high school social studies tutor, out of bed/ambulate #1. Acute metabolic encephalopathy. This is secondary to uremic encephalopathy. The patient missed dialysis due to the inclement weather. Encephalopathy has since resolved after dialysis was initiated. 2. End-stage renal disease. He is on dialysis and I will defer to nephrology about ongoing treatment. 3. Chronic pressure ulcers on his lower extremity. Continue dressing changes as recommended by wound care.
[2020-06-08] MEDS: traMADol HCl 50 MG TAB PO PRN ×3 (03:49→21:05)
[2020-06-08] MEDS: Heparin 5,000 UNITS/ML VIAL SC SCH ×3 (09:04→21:05)
[2020-06-08 09:51] LABS: Vancomycin, Random 12.2 ug/mL (See Comment)
[2020-06-08 12:12] LABS: Hemoglobin 9.6 g/dL (14.0-18.0); Mean Corpuscular HGB CONC 33.3 g/dL (32.0-36.0); Mean Corpuscular Hemoglobin 36.1 pg (27.0-31.0); Mean Platelet Volume 6.2 fL (7.4-10.4); Platelet Count 326 thou/uL (130-400); RBC Distribution Width 14.2 % (11.5-14.5); Red Blood Cell (RBC) Count 2.67 mill/uL (4.70-6.10); White Blood Cell (WBC) Count 5.3 thou/uL (4.8-10.8)
--- NOTE | 2020-06-08 12:26 | PDOC.HOSPP ---
- Subjective Encounter Date: 06/08/20 Encounter Time: 08:55 Subjective: Patient is alert oriented x3 we examined his wound. Sacral area does not appear to be in ulcer at this point is just a pressure causing some erythema but no skin breakdown there. His right leg wound is about 2 x 2 no flocculence seen or there is some mild discharge. The left leg about 3 different places small stage I ulcer but it all seems to be chronic 1. Inguinal area there is not much cellulitis noticeable. - Objective Vital Signs & Weight: Vital Signs (12 hours) Temp Pulse Resp BP Pulse Ox 06/08/20 09:04 98 06/08/20 08:00 97.5 F L 88 16 117/58 L 98 06/08/20 03:45 98.0 F 75 16 147/103 H 98 Weight Admit Weight 203 lb Weight 203 lb I&O: 06/07/20 06/08/20 06/09/20 06:59 06:59 06:59 Intake Total 1647 900 Output Total 3000 Balance -1353 900 Result Diagrams: 06/08/20 11:56 06/06/20 04:48 Hospitalist ROS - Medication Medications: Active Medications Generic Name Dose Route Start Last Admin Trade Name Freq PRN Reason Stop Dose Admin Heparin Sodium (Porcine) 5,000 units 06/05/20 09:00 06/08/20 09:04 Heparin 5,000 Units/Ml Vial SC 5,000 units TID ORESTES Administration Lorazepam 0.5 mg 06/05/20 16:57 06/05/20 18:35 Lorazepam 2 Mg/Ml Vial SLOW IVP 0.5 mg Q6H PRN Administration Anxiety/Agitation Sodium Chloride 10 ml 06/06/20 09:00 06/08/20 09:04 Flush - Normal Saline 10 Ml Syringe IVF 10 ml Q12HR ORESTES Administration Tramadol HCl 50 mg 06/06/20 01:58 06/08/20 10:18 Tramadol Hcl 50 Mg Tab PO 50 mg Q6HR PRN Administration Pain Hospitalist Exam Vitals: Vital Signs (12 hours) Temp Pulse Resp BP Pulse Ox 06/08/20 09:04 98 06/08/20 08:00 97.5 F L 88 16 117/58 L 98 06/08/20 03:45 98.0 F 75 16 147/103 H 98 Weight Admit Weight 203 lb Weight 203 lb General Appearance: NAD, awake alert Eye: PERRL ENT: normocephalic atraumatic Neck: supple Heart: RRR Respiratory: CTAB, normal chest expansion Gastrointestinal: soft, normal bowel sounds Extremities - other findings: His right leg wound is about 2 x 2 Neurological: cranial nerve grossly intact, no focal deficits Psychiatric: A&O x 3 Hosp A/P - Plan (1) AMS (altered mental status) Code(s): R41.82 - ALTERED MENTAL STATUS, UNSPECIFIED Status: Acute (2) Anemia due to chronic kidney disease Code(s): N18.9 - CHRONIC KIDNEY DISEASE, UNSPECIFIED; D63.1 - ANEMIA IN CHRONIC KIDNEY DISEASE Status: Chronic Qualifiers: Chronic kidney disease stage: on chronic dialysis Qualified Code(s): N18.6 - End stage renal disease; D63.1 - Anemia in chronic kidney disease; Z99.2 - Dependence on renal dialysis (3) End-stage renal disease (ESRD) Code(s): N18.6 - END STAGE RENAL DISEASE Status: Chronic - Plan PT/OT, social scientist, out of bed/ambulate #1. Acute metabolic encephalopathy. This is secondary to uremic encephalopathy. The patient missed dialysis due to the inclement weather. Encephalopathy has since resolved after dialysis was initiated. 2. End-stage renal disease. He is on dialysis and I will defer to nephrology about ongoing treatment. 3. Chronic pressure ulcers on his lower extremity. Continue dressing changes as recommended by wound care. 20th Sacral area does not appear to be in ulcer at this point is just a pressure causing some erythema but no skin breakdown there. His right leg wound is about 2 x 2 no flocculence seen or there is some mild discharge. The left leg about 3 different places small stage I ulcer but it all seems to be chronic 1. Inguinal area there is not much cellulitis noticeable. Wound care consult placed last evening probably they will likely see today. Blood cultures done on without any growth. Will switch his IV antibiotic probably tomorrow. Hypoglycemia-couple of days His blood glucose is still on the low end range. He is getting D5 fluid.
[2020-06-08 12:34] LABS: Eosinophils 7 % (0-10); Lymphocytes 35 % (21-51); MDiff Complete? YES; Macrocytosis SLIGHT = 6-15 cells (100X) (0-5/hpf); Monocytes 6 % (0-10); Neutrophil 50 % (42-75); Platelet Morphology Comment Appears Adequate; Polychromasia SLIGHT = 2-3 cells (100X) (0-2/hpf); Reactive Lymphocytes 2 % (0-10)
--- NOTE | 2020-06-08 15:16 | EKG ---
Test Reason : Blood Pressure : / mmHG Vent. Rate : 087 BPM Atrial Rate : 087 BPM P-R Int : 198 ms QRS Dur : 120 ms QT Int : 362 ms P-R-T Axes : 041 -01 069 degrees QTc Int : 435 ms Sinus rhythm with marked sinus arrhythmia Low voltage QRS Septal infarct , age undetermined Abnormal ECG Confirmed by MEE SCHUMACHER M.D. ([id number]), greeting card editor SONIA LAUREANO ([id number]) on 06/08/2020 3:16:47 PM Referred By: Confirmed By:MEE SCHUMACHER M.D.
--- NOTE | 2020-06-08 17:08 | PRG ---
DATE OF SERVICE: 06/08/2020 SUBJECTIVE: Patient was seen and examined at bedside and overnight events noted. Patient denies any shortness of breath or chest pain or palpitation. No history of nausea or vomiting or diarrhea or fever or chills or cramps. OBJECTIVE: GENERAL: This is a well-built male, in no apparent distress. VITAL SIGNS: Temperature 97.6. Heart rate 71. Respiratory rate 16. Blood pressure 139/76. HEENT: Atraumatic, normocephalic. Oral mucosa is moist. NECK: Supple. CARDIOVASCULAR: S1, S2 heard. Rate and rhythm regular. RESPIRATORY: Clear to auscultation. GASTROINTESTINAL: Abdomen is soft. MUSCULOSKELETAL: No tenderness. No edema. DERMATOLOGIC: No skin rash. NEUROLOGIC: Alert and awake and oriented x3. No focal neurologic deficits. Moving all the extremities. PSYCHIATRIC: Mood and affect normal. LABORATORY DATA: Potassium 4.0, BUN is 31, and creatinine is 4.1. ASSESSMENT AND PLAN: 1. End-stage renal disease. Continue on hemodialysis. The patient is seen during dialysis. We will continue on dialysis on Wednesday, , and Wednesday as tolerated. 2. Edema. We will remove fluid. 3. Hypertension. 4. Anemia of chronic disease. 5. Altered mentation, seems to be better. Plan to continue dialysis on TTS as tolerated. We will remove fluid. Job ID: [id number]
[2020-06-09] MEDS: traMADol HCl 50 MG TAB PO PRN ×2 (04:01→14:55)
[2020-06-09] MEDS: Heparin 5,000 UNITS/ML VIAL SC SCH ×3 (08:58→20:26)
--- NOTE | 2020-06-09 12:25 | PDOC.HOSPP ---
- Subjective Encounter Date: 06/09/20 Encounter Time: 09:35 Subjective: Patient seen this morning he did not had any complaints. His blood pressure is mildly elevated earlier this morning. He is satting 98% in the room air. leg ulcers seems to be stable and not worsening. Left leg being exposed. Not on any dressing. - Objective Vital Signs & Weight: Vital Signs (12 hours) Temp Pulse Resp BP Pulse Ox 06/09/20 11:52 97.6 F 76 14 126/60 98 06/09/20 08:00 97.4 F L 70 14 135/65 95 06/09/20 03:33 97.5 F L 82 16 154/72 H 98 Weight Admit Weight 203 lb Weight 203 lb I&O: 06/08/20 06/09/20 06/10/20 06:59 06:59 06:59 Intake Total 900 960 Output Total 2600 Balance 900 -1640 Result Diagrams: 06/08/20 11:56 06/06/20 04:48 Hospitalist ROS - Medication Medications: Active Medications Generic Name Dose Route Start Last Admin Trade Name Freq PRN Reason Stop Dose Admin Heparin Sodium (Porcine) 5,000 units 06/05/20 09:00 06/09/20 08:58 Heparin 5,000 Units/Ml Vial SC 5,000 units TID ORESTES Administration Lorazepam 0.5 mg 06/05/20 16:57 06/05/20 18:35 Lorazepam 2 Mg/Ml Vial SLOW IVP 0.5 mg Q6H PRN Administration Anxiety/Agitation Sodium Chloride 10 ml 06/06/20 09:00 06/08/20 21:05 Flush - Normal Saline 10 Ml Syringe IVF 10 ml Q12HR ORESTES Administration Tramadol HCl 50 mg 06/06/20 01:58 06/09/20 04:01 Tramadol Hcl 50 Mg Tab PO 50 mg Q6HR PRN Administration Pain Hospitalist Exam Vitals: Vital Signs (12 hours) Temp Pulse Resp BP Pulse Ox 06/09/20 11:52 97.6 F 76 14 126/60 98 06/09/20 08:00 97.4 F L 70 14 135/65 95 06/09/20 03:33 97.5 F L 82 16 154/72 H 98 Weight Admit Weight 203 lb Weight 203 lb General Appearance: NAD, awake alert Eye: PERRL ENT: normocephalic atraumatic Neck: supple Heart: RRR Respiratory: CTAB, normal chest expansion Gastrointestinal: soft, normal bowel sounds Extremities - other findings: Lower extremities with chronic venous stasis related ulcers stable Neurological: no new deficit Psychiatric: A&O x 3 Hosp A/P - Plan (1) AMS (altered mental status) Code(s): R41.82 - ALTERED MENTAL STATUS, UNSPECIFIED Status: Acute (2) Anemia due to chronic kidney disease Code(s): N18.9 - CHRONIC KIDNEY DISEASE, UNSPECIFIED; D63.1 - ANEMIA IN CHRONIC KIDNEY DISEASE Status: Chronic Qualifiers: Chronic kidney disease stage: on chronic dialysis Qualified Code(s): N18.6 - End stage renal disease; D63.1 - Anemia in chronic kidney disease; Z99.2 - Dependence on renal dialysis (3) End-stage renal disease (ESRD) Code(s): N18.6 - END STAGE RENAL DISEASE Status: Chronic - Plan PT/OT, 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 Acute metabolic encephalopathy. This is secondary to uremic encephalopathy. The patient missed dialysis due to the inclement weather. Encephalopathy has since resolved after dialysis was initiated. 2. End-stage renal disease. He is on dialysis and I will defer to nephrology about ongoing treatment. 3. Chronic pressure ulcers on his lower extremity. Continue dressing changes as recommended by wound care. Sacral area does not appear to be in ulcer at this point is just a pressure causing some erythema but no skin breakdown there. His right leg wound is about 2 x 2 no flocculence seen or there is some mild discharge. The left leg about 3 different places small stage I ulcer but it all seems to be chronic 1. Inguinal area there is not much cellulitis noticeable. Wound care consult placed last evening probably they will likely see today. Blood cultures done on without any growth. Off antibiotic Hypoglycemia-couple of days His blood glucose is still on the low end range. He is getting D5 fluid. D5 turned off we will make sure his blood glucose is normal range. Pending placement
--- NOTE | 2020-06-09 13:50 | PRG ---
DATE OF SERVICE: 06/09/2020 SUBJECTIVE: Patient was seen and examined at bedside and overnight events noted. Patient denies any shortness of breath or chest pain or palpitation. No history of nausea or vomiting or diarrhea or fever or chills or cramps. OBJECTIVE: General: This is a well built male in no apparent distress. Vital Signs: Temperature 97. Heart Rate 76. Respiratory rate . Blood pressure 126/60. HEENT: Atraumatic, normocephalic. Oral mucosa is moist. Neck: Supple. Cardiovascular: S1, S2 heard. Rate and rhythm regular. Respiratory: Clear to auscultation. Gastrointestinal: Abdomen is soft. Musculoskeletal: No tenderness. No edema. Dermatologic: No skin rash. Neurologic: Alert and awake and oriented x3. No focal neurologic deficits. Moving all the extremities. Psychiatric: Mood and affect normal. LABORATORY DATA: Potassium 4.0, BUN is 31, and creatinine is 4.1. ASSESSMENT AND PLAN: 1. End-stage renal disease. Continue dialysis as tolerated. 2. Edema, remove fluid. 3. Hypertension. 4. Anemia of chronic disease. 5. Altered mentation better. We will recheck labs in the morning and continue dialysis as tolerated. Job ID: [id number]
[2020-06-09] MEDS: Acetaminophen 325 MG TAB PO PRN (14:54)
[2020-06-10] MEDS: traMADol HCl 50 MG TAB PO PRN (04:22)
[2020-06-10 05:05] LABS: Anion Gap 15 mmol/L (10-20); BUN (Urea Nitrogen) 45 mg/dL (8.4-25.7); Calc. Creatinine Clearance 15 mL/min (70-130); Calcium 8.3 mg/dL (7.8-10.44); Carbon Dioxide 29 mmol/L (23-31); Chloride 95 mmol/L (98-107); Glucose 92 mg/dL (83-110); Potassium 4.3 mmol/L (3.5-5.1); Sodium 135 mmol/L (136-145)
[2020-06-10] MEDS: Heparin 5,000 UNITS/ML VIAL SC SCH ×2 (08:56→15:00)
[2020-06-10] MEDS: Acetaminophen 325 MG TAB PO PRN (09:02)
--- NOTE | 2020-06-10 12:06 | PRG ---
DATE OF SERVICE: 06/10/2020 SUBJECTIVE: A 80-year-old gentleman, being seen for end-stage renal disease. The patient denied any nausea, vomiting, or chest pain. OBJECTIVE: General: The patient is awake and alert. Vital Signs: Afebrile, pulse 75, breathing at 16, blood pressure 134/60. HEENT: Head normocephalic and atraumatic. Eyes intact, no ulcers. Nose intact, no ulcers. Ears intact, no ulcers. Neck: Supple. No JVD. Chest: Symmetrical and clear. Cardiovascular: Shows S1 and S2, no rub, no murmur. Gastrointestinal: Abdomen is soft, bowel sounds positive. Extremities: Show no edema or ulcers. Skin: Shows no rash or petechiae. Musculoskeletal: Shows no joint swelling or stiffness. Genitourinary: Shows no [place] or CVA tenderness. Neurologic: Motor intact. Cranial nerves intact. LABORATORY DATA: Reviewed. ASSESSMENT AND PLAN: 1. Stage 6 chronic kidney disease, stable. 2. Hypertension, stable. 3. Anemia, stable. 4. Medication based on GFR appropriate. Job ID: [id number]
--- NOTE | 2020-06-10 12:52 | PDOC.HOSPP ---
- Subjective Encounter Date: 06/10/20 Encounter Time: 09:00 Subjective: Patient doing well he has no complaints he is talking about his mother applying kerosin on the ulcers and then it heals? No acute complaints. - Objective Vital Signs & Weight: Vital Signs (12 hours) Temp Pulse Resp BP Pulse Ox 06/10/20 12:00 98 F 77 16 145/67 H 100 06/10/20 08:00 97.6 F 84 18 152/70 H 97 06/10/20 04:23 97.7 F 76 18 166/75 H 96 Weight Admit Weight 203 lb Weight 203 lb I&O: 06/09/20 06/10/20 06/11/20 06:59 06:59 06:59 Intake Total 960 600 240 Output Total 2600 200 Balance -1640 400 240 Result Diagrams: 06/08/20 11:56 06/10/20 04:44 Additional Labs: Accuchecks 06/09/20 13:27 POC Glucose 126 H Hospitalist ROS - Medication Medications: Active Medications Generic Name Dose Route Start Last Admin Trade Name Freq PRN Reason Stop Dose Admin Acetaminophen 650 mg 06/08/20 09:49 06/10/20 09:02 Acetaminophen 325 Mg Tab PO 650 mg Q6H PRN Administration Headache/Fever or Pain Heparin Sodium (Porcine) 5,000 units 06/05/20 09:00 06/10/20 08:56 Heparin 5,000 Units/Ml Vial SC 5,000 units TID ORESTES Administration Lorazepam 0.5 mg 06/05/20 16:57 06/05/20 18:35 Lorazepam 2 Mg/Ml Vial SLOW IVP 0.5 mg Q6H PRN Administration Anxiety/Agitation Sodium Chloride 10 ml 06/06/20 09:00 06/10/20 08:57 Flush - Normal Saline 10 Ml Syringe IVF 10 ml Q12HR ORESTES Administration Tramadol HCl 50 mg 06/06/20 01:58 06/10/20 04:22 Tramadol Hcl 50 Mg Tab PO 50 mg Q6HR PRN Administration Pain Hospitalist Exam Vitals: Vital Signs (12 hours) Temp Pulse Resp BP Pulse Ox 06/10/20 12:00 98 F 77 16 145/67 H 100 06/10/20 08:00 97.6 F 84 18 152/70 H 97 06/10/20 04:23 97.7 F 76 18 166/75 H 96 Weight Admit Weight 203 lb Weight 203 lb General Appearance: NAD, awake alert Eye: PERRL ENT: normocephalic atraumatic Neck: supple Heart: RRR Respiratory: CTAB, normal chest expansion Gastrointestinal: soft, normal bowel sounds Extremities: 1+ LE edema Neurological: cranial nerve grossly intact, no weakness Musculoskeletal: generalized weakness Psychiatric: A&O x 3 Hosp A/P - Plan (1) AMS (altered mental status) Code(s): R41.82 - ALTERED MENTAL STATUS, UNSPECIFIED Status: Acute (2) Anemia due to chronic kidney disease Code(s): N18.9 - CHRONIC KIDNEY DISEASE, UNSPECIFIED; D63.1 - ANEMIA IN CHRONIC KIDNEY DISEASE Status: Chronic Qualifiers: Chronic kidney disease stage: on chronic dialysis Qualified Code(s): N18.6 - End stage renal disease; D63.1 - Anemia in chronic kidney disease; Z99.2 - Dependence on renal dialysis (3) End-stage renal disease (ESRD) Code(s): N18.6 - END STAGE RENAL DISEASE Status: Chronic - Plan PT/OT, social welfare administrator, out of bed/ambulate #1. Acute metabolic encephalopathy. This is secondary to uremic encephalopathy. The patient missed dialysis due to the inclement weather. Encephalopathy has since resolved after dialysis was initiated. 2. End-stage renal disease. He is on dialysis and I will defer to nephrology about ongoing treatment. 3. Chronic pressure ulcers on his lower extremity. Continue dressing changes as recommended by wound care. Sacral area does not appear to be in ulcer at this point is just a pressure causing some erythema but no skin breakdown there. His right leg wound is about 2 x 2 no flocculence seen or there is some mild discharge. The left leg about 3 different places small stage I ulcer but it all seems to be chronic 1. Inguinal area there is not much cellulitis noticeable. Wound care consult placed last evening probably they will likely see today. Blood cultures done on without any growth. Off antibiotic Hypoglycemia-couple of days D5 turned off - blood glucose is in normal range. Pending placement
[2020-06-10 16:31] VITALS: BP 179/82; TEMP 98.1
--- NOTE | 2020-06-10 16:59 | PDOC.DS.DS ---
Provider Date of Admission: 06/05/20 04:46 Admitting Provider: Allan Summers MD Primary Care Physician: Sinan Odonnell MD Course Hospital Course: 80-year-old male presented with (1) AMS (altered mental status) Code(s): R41.82 - ALTERED MENTAL STATUS, UNSPECIFIED Status: Acute (2) Anemia due to chronic kidney disease Code(s): N18.9 - CHRONIC KIDNEY DISEASE, UNSPECIFIED; D63.1 - ANEMIA IN CHRONIC KIDNEY DISEASE Status: Chronic Qualifiers: Chronic kidney disease stage: on chronic dialysis Qualified Code(s): N18.6 - End stage renal disease; D63.1 - Anemia in chronic kidney disease; Z99.2 - Dependence on renal dialysis (3) End-stage renal disease (ESRD) Code(s): N18.6 - END STAGE RENAL DISEASE Status: Chronic -dialysed during inpatient #1. Acute metabolic encephalopathy. This is secondary to uremic encephalopathy. The patient missed dialysis due to the i weather. -resolved after dialysis and remained AOX4. 3. Chronic pressure ulcers on his lower extremity. Continue dressing changes as recommended by wound care. Sacral area does not appear to be in ulcer at this point just a pressure causing some erythema but no skin breakdown there. His right leg wound is about 2 x 2 no flocculence seen or there is some mild discharge. The left leg about 3 different places small stage I ulcer but it all seems to be chronic 1. Inguinal area there is not much cellulitis noticeable. Wound care followed. Blood cultures done on -no growth. He will be transferred to the nursing facility. Lab Results: 06/08/20 11:56 06/10/20 04:44 Abnormal Lab Results - Last 48 hrs 06/10/20 04:44: Sodium 135 L, Chloride 95 L, BUN 45 H, Creatinine 5.38 H Microbiology - Entire Visit 06/05/20 06:46 Venous blood - Right Arm Blood Culture - Final NO GROWTH IN 5 DAYS 06/05/20 06:33 Venous blood - Right Arm Blood Culture - Final NO GROWTH IN 5 DAYS Vitals: Vital Signs (12 hours) Temp Pulse Resp BP Pulse Ox 06/10/20 16:00 98.1 F 85 18 179/82 H 98 06/10/20 12:00 98 F 77 16 145/67 H 100 06/10/20 08:00 97.6 F 84 18 152/70 H 97 Weight Admit Weight 203 lb Weight 203 lb Physical Exam: The patient was seen and examined on the day of discharge. Plan Home Medications: Medication Instructions Recorded Confirmed Type Ascorbic Acid [Vitamin C] 500 mg PO DAILY 06/14/17 06/05/20 History Multivit-Mins/Iron/Folic/Lycop 1 each PO DAILY 06/14/17 06/05/20 History [Centrum Men's Tablet] Acetaminophen [Tylenol Extra 1,000 mg PO Q6HR PRN 06/15/18 06/05/20 History Strength] Calcium Acetate [Phoslo] 1 cap PO TID-WM 06/15/18 06/05/20 History Folic Acid [Folvite] 1 mg PO DAILY tab 04/06/20 06/05/20 Rx Cider Vinegar [Apple Cider Vinegar] 300 mg PO DAILY 06/05/20 06/05/20 History Potassium Gluconate [Potassium] 600 mg PO DAILY 06/05/20 06/05/20 History traMADol HCl [Ultram] 50 mg PO Q6HR PRN 06/06/20 06/06/20 History Allergies: aspirin Allergy (Verified 11/21/19 01:01) itching diphenhydramine [From Benadryl] Adverse Reaction (Verified 11/21/19 01:01) makes me very itchy Activity:: Activity as Tolerated Nourishment:: Regular Diet Referrals: Sinan Odonnell MD [Primary Care Provider] - [facility] Quality CORE MEASURES:: N/A
== END 2020-06-10 20:37 | DRG 70 ==
LOC: ERS 23:34 → ERHOLD 06-05 04:46 → OBSVTOIN 06-05 04:46 → 2SE 06-05 17:33
PROVIDERS: ADMIT Student in an Organized Health Care Education/Training Program; ATTEND Internal Medicine
PROC: 5A1D70Z Performance of Urinary Filtration, Intermittent, Less than 6 Hours Per Day (ICD-10-PCS; principal; 2020-06-05)
DX: G93.41 Metabolic encephalopathy (principal); N18.6 End stage renal disease; D63.1 Anemia in chronic kidney disease; L89.91 Pressure ulcer of unspecified site, stage 1; Z20.822 Contact with and (suspected) exposure to COVID-19; M19.90 Unspecified osteoarthritis, unspecified site; I87.2 Venous insufficiency (chronic) (peripheral); E16.2 Hypoglycemia, unspecified; Z88.8 Allergy status to other drugs, medicaments and biological substances; Z99.2 Dependence on renal dialysis; Z79.899 Other long term (current) drug therapy
CPT/HCPCS: 36415; 36416; 70450; 71045; 80048; 80053; 80202; 82553; 83880; 84484; 85007; 85025; 85027; 87040; 87340; 87635; 90935; 93005; 96372; 96374; 96375; 96376; G0257; G0378; J1644; J2060; J2543; J3370; J3490; J7050; U0003; U0005

== ENCOUNTER 2021-01-05 17:30 | Emergency (ER) | payer MEDICARE, BC ==
[2021-01-05] MEDS ORDERED: Lidocaine 1% w/Epinephrine 1:100K 20 ML VIAL ONE (18:24)
== END 2021-01-05 20:25 | disposition home or self-care (01) ==
LOC: ERS 17:30
DX: S51.811A Laceration without foreign body of right forearm, initial encounter (principal); N18.9 Chronic kidney disease, unspecified; M19.90 Unspecified osteoarthritis, unspecified site; W05.0XXA Fall from non-moving wheelchair, initial encounter
CPT/HCPCS: 12032

== ENCOUNTER 2021-08-21 17:44 | Emergency (ER) | payer BC, MEDICARE ==
[2021-08-21] MEDS ORDERED: Morphine 4 MG/ML VIAL ONE ×2 (17:53→19:17)
[2021-08-21] MEDS ORDERED: Ondansetron PF 4 MG/2 ML Vial ONE (17:53)
[2021-08-21 18:54] LABS: Hemoglobin 11.6 g/dL (14.0-18.0); Mean Corpuscular HGB CONC 31.7 g/dL (32.0-36.0); Mean Corpuscular Hemoglobin 35.8 pg (27.0-31.0); Mean Platelet Volume 6.2 fL (7.4-10.4); Platelet Count 372 thou/uL (130-400); RBC Distribution Width 12.3 % (11.5-14.5); Red Blood Cell (RBC) Count 3.25 mill/uL (4.70-6.10); White Blood Cell (WBC) Count 15.2 thou/uL (4.8-10.8)
[2021-08-21 19:05] LABS: ALT (SGPT) 8 U/L (8-55); AST (SGOT) 12 U/L (5-34); Albumin 3.6 g/dL (3.4-4.8); Alkaline Phosphatase 79 U/L (40-110); Anion Gap 24 mmol/L (10-20); BUN (Urea Nitrogen) 42 mg/dL (8.4-25.7); Bilirubin, Total 0.4 mg/dL (0.2-1.2); Calc. Creatinine Clearance 0 mL/min (70-130); Calcium 8.9 mg/dL (7.8-10.44); Carbon Dioxide 25 mmol/L (23-31); Chloride 91 mmol/L (98-107); Glucose 149 mg/dL (83-110); Lipase Less than 4 U/L (8-78); Potassium 3.8 mmol/L (3.5-5.1); Protein, Total 6.6 g/dL (5.8-8.1); Sodium 136 mmol/L (136-145)
[2021-08-21 19:13] LABS: #Lymphocytes 1.8 thou/uL (1.20-3.40); #Monocytes 1.1 thou/uL (0.11-0.59); #Neutrophils 12.2 thou/uL (1.40-6.50); %Basophils 0.2 % (0.0-1.0); %Eosinophils 0.1 % (0.0-10.0); %Lymphocytes 12.1 % (21.0-51.0); %Monocytes 7.5 % (0.0-10.0); %Neutrophils 80.1 % (42.0-75.0); MDiff Complete? YES; Macrocytosis MODERATE=16-30 cells (100X) (0-5/hpf)
== END 2021-08-21 20:05 | disposition home or self-care (01) ==
LOC: ERS 17:44
DX: M84.48XA Pathological fracture, other site, initial encounter for fracture (principal); N18.9 Chronic kidney disease, unspecified; M19.90 Unspecified osteoarthritis, unspecified site; Z99.2 Dependence on renal dialysis
CPT/HCPCS: 36415; 71275; 74174; 80053; 83690; 84484; 85025; 93005; 96374; 96375; 96376; J2270; J2405